=== PATIENT | female | born 1945 | race Caucasian/White ===

== ENCOUNTER → 2018-03-28 11:43 | Outpatient (CLI) | payer MEDICARE, OTHER, SELFPAY ==
[2018-03-28 13:38] LABS: Hep C Virus Ab w/Reflex Quant NEGATIVE s/c (NEGATIVE)
== END ==
PROVIDERS: PCP Internal Medicine; Visit Provider Internal Medicine
DX: Z13.818 Encounter for screening for other digestive system disorders (principal)
CPT/HCPCS: 36415; 86803

== ENCOUNTER → 2018-06-24 11:34 | Outpatient (CLI) | payer MEDICARE, OTHER, SELFPAY ==
[2018-06-24 12:48] LABS: Blood Urea Nitrogen 9 mg/dL (7-17); Calcium 9.2 mg/dL (8.4-10.2); Carbon Dioxide 31 mmol/L (22-32); Chloride 96 mmol/L (98-107); Estimated Glomerular Filt Rate > 60.0 mL/min (>60); Glucose 94 mg/dL (80-110); HEMOLYSIS < 15 (0-50); Potassium 4.9 mmol/L (3.4-5.1); Sodium 133 mmol/L (137-145)
== END ==
PROVIDERS: PCP Internal Medicine; Visit Provider Internal Medicine
DX: I10 Essential (primary) hypertension (principal)
CPT/HCPCS: 36415; 80048

== ENCOUNTER → 2018-10-05 09:57 | Outpatient (CLI) | payer MEDICARE, OTHER, SELFPAY ==
--- NOTE | 2018-10-05 | DI.MG.S_ITS ---
BILATERAL DIGITAL SCREENING MAMMOGRAM 3D/2D WITH CAD: 10/05/2018 CLINICAL: Routine screening. Family history of breast cancer. Comparison is made to exams dated: 08/04/2017 mammogram, 04/01/2016 mammogram, 03/27/2015 mammogram, 01/03/2010 mammogram, 03/23/2014 mammogram, and 02/22/2013 mammogram - [facility]. There are scattered fibroglandular elements in both breasts. Current study was also evaluated with a Computer Aided Detection (CAD) system. No significant masses, calcifications, or other findings are seen in either breast. There has been no significant interval change. IMPRESSION: NEGATIVE There is no mammographic evidence of malignancy. A 1 year screening mammogram is recommended. This exam was interpreted at Station ID: [id number]. NOTE: For mammograms, a report in lay terms will be sent to the patient. Approximately 15% of breast malignancies will not be visualized mammographically. In the management of a palpable breast mass, a negative mammogram must not discourage biopsy of a clinically suspicious lesion. Electronically Signed By: Drake moreno/rosalia:10/05/2018 14:12:06 letter sent: Normal Exam ACR BI-RADS Category 1: Negative 3341F
== END ==
PROVIDERS: PCP Internal Medicine; Visit Provider Internal Medicine
DX: Z12.31 Encounter for screening mammogram for malignant neoplasm of breast (principal); Z80.3 Family history of malignant neoplasm of breast
CPT/HCPCS: 77063; 77067

== ENCOUNTER → 2018-12-12 13:08 | Outpatient (CLI) | payer MEDICARE, OTHER, SELFPAY ==
--- NOTE | 2018-12-12 | DI.RAD.S_ITS ---
This blank DEXA report has been sent in error by the PACS system. The correct and complete report will be forthcoming in 1-2 days. Thank you for your patience and understanding. Dictated by: Isi Sanchez M.D. on 12/12/2018 at 16:35 Approved by: Isi Sanchez M.D. on 12/12/2018 at 16:35
== END ==
PROVIDERS: PCP Internal Medicine; Visit Provider Internal Medicine
DX: M85.852 Other specified disorders of bone density and structure, left thigh (principal); Z78.0 Asymptomatic menopausal state; Z90.722 Acquired absence of ovaries, bilateral; Z82.62 Family history of osteoporosis
CPT/HCPCS: 77080

== ENCOUNTER → 2019-04-12 09:38 | Outpatient (CLI) | payer MEDICARE, OTHER, SELFPAY ==
[2019-04-12 12:02] LABS: Cholesterol 213 mg/dL (140-199); Triglycerides 51 mg/dL (35-150)
[2019-04-12 12:04] LABS: HDL Cholesterol > 110 mg/dL (40-60); LDL Cholesterol Calculated 93 mg/dL (<100)
== END ==
PROVIDERS: PCP Internal Medicine; Visit Provider Internal Medicine Cardiovascular Disease
DX: I10 Essential (primary) hypertension (principal)
CPT/HCPCS: 36415; 80061

== ENCOUNTER → 2020-04-03 10:56 | Outpatient (CLI) | payer MEDICARE, OTHER, SELFPAY ==
[2020-04-03 13:15] LABS: BUN Creatinine Ratio 29.9 (6-22); Blood Urea Nitrogen 20 mg/dL (7-17); Calcium 9.6 mg/dL (8.4-10.2); Carbon Dioxide 24 mmol/L (22-32); Chloride 103 mmol/L (98-107); Cholesterol 245 mg/dL (140-199); Estimated Glomerular Filt Rate > 60.0 mL/min (>60); Glucose 108 mg/dL (80-110); HEMOLYSIS < 15 (0-50); Potassium 4.6 mmol/L (3.4-5.1); Sodium 134 mmol/L (137-145); Triglycerides 46 mg/dL (35-150)
[2020-04-03 13:30] LABS: HDL Cholesterol 132 mg/dL (40-60); LDL Cholesterol Calculated 104 mg/dL (<100)
== END ==
PROVIDERS: PCP Internal Medicine; Referring Provider Internal Medicine; Visit Provider Internal Medicine
DX: I10 Essential (primary) hypertension (principal); E78.2 Mixed hyperlipidemia
CPT/HCPCS: 36415; 80048; 80061

== ENCOUNTER → 2020-07-18 16:31 | Outpatient (CLI) | payer MEDICARE, OTHER, SELFPAY ==
--- NOTE | 2020-07-18 | DI.RAD.S_ITS ---
PROCEDURE: XR THORACIC SPINE 3V INDICATIONS: fall TECHNIQUE: Three views of the thoracic spine were acquired. COMPARISON: None. FINDINGS: Bones: No thoracic fractures or dislocations. There is a compression fracture of L2, chronicity uncertain. No suspicious bony lesions. 12 pairs of ribs are noted, and appear intact where visualized. Multilevel anterior disc height loss and endplate spurring in the mid and lower thoracic spine. Soft tissues: No paravertebral stripe thickening. IMPRESSION: 1. No visible thoracic vertebral body fractures. 2. Chronic appearing degenerative disc and endplate changes in the mid and lower thoracic spine. 3. Possible acute L2 compression fracture. Dictated by: Isi Sanchez M.D. on 07/18/2020 at 18:06 Approved by: Isi Sanchez M.D. on 07/18/2020 at 18:07
--- NOTE | 2020-07-18 | DI.RAD.S_ITS ---
8PROCEDURE: XR WRIST RT MIN 3V INDICATIONS: Fall TECHNIQUE: Four views of the wrist were acquired. COMPARISON: None. FINDINGS: Bones: No fractures or dislocations. No suspicious bony lesions. Severe degenerative changes, particularly at the 2nd and 3rd MCP joints. Scaphoid view: No scaphoid fracture. Soft tissues: No suspicious soft tissue calcifications. IMPRESSION: 1. No visible fracture. If there is continued concern for occult fracture, immobilization and reimaging in 7-10 days is recommended. 2. Degenerative changes at the 2nd and 3rd MCP joints particularly. Dictated by: Isi Sanchez M.D. on 07/18/2020 at 18:10 Approved by: Isi Sanchez M.D. on 07/18/2020 at 18:12
--- NOTE | 2020-07-18 | DI.RAD.S_ITS ---
PROCEDURE: XR RIBS LT MIN 3V W CXR1V INDICATIONS: Fall TECHNIQUE: Two views of the left ribs were acquired, along with a single view chest. COMPARISON: None. FINDINGS: Surgical changes and devices: None. Bones and chest wall: No fractures or dislocations. No suspicious bony lesions. Overlying soft tissues appear unremarkable. Lungs and pleura: No pleural effusions or pneumothorax. Lungs appear clear. Mediastinum: Mediastinal contours appear normal. Heart size is normal. IMPRESSION: 1. No displaced rib fractures. 2. No radiographic evidence of underlying chest trauma. Dictated by: Isi Sanchez M.D. on 07/18/2020 at 18:08 Approved by: Isi Sanchez M.D. on 07/18/2020 at 18:09
--- NOTE | 2020-07-18 | DI.RAD.S_ITS ---
PROCEDURE: XR LUMBAR SPINE 2-3V INDICATIONS: Fall TECHNIQUE: Three views of the lumbar spine were acquired. COMPARISON: None. FINDINGS: Bones: Five sdn-yar-thehvty vertebrae are present. There is an L2 compression fracture without retropulsion of fracture fragments. There is anterior endplate spur formation at this and other levels. Trace anterolisthesis L4 on five and moderate disc height loss L5-S1. No suspicious bony lesions. Soft tissues: Overlying bowel gas pattern is normal. No suspicious soft tissue calcifications. IMPRESSION: 1. Findings of possible acute L2 compression fracture. No prior studies are available for comparison. Correlate clinically and consider MRI to assess for acuity. 2. Moderate degenerative disc and endplate changes. Dictated by: Isi Sanchez M.D. on 07/18/2020 at 18:09 Approved by: Isi Sanchez M.D. on 07/18/2020 at 18:10
== END ==
PROVIDERS: PCP Internal Medicine; Referring Provider Student in an Organized Health Care Education/Training Program; Visit Provider Student in an Organized Health Care Education/Training Program
DX: S22.029A Unspecified fracture of second thoracic vertebra, initial encounter for closed fracture (principal); M79.601 Pain in right arm; R07.81 Pleurodynia; M54.9 Dorsalgia, unspecified; W19.XXXA Unspecified fall, initial encounter
CPT/HCPCS: 71101; 72072; 72100; 73110

== ENCOUNTER → 2020-08-16 11:05 | Outpatient (CLI) | payer MEDICARE, OTHER, SELFPAY ==
--- NOTE | 2020-08-16 | DI.CT.S_ITS ---
PROCEDURE: CT UE RT WO CON INDICATIONS: Pain in right wrist TECHNIQUE: Noncontrast 1 mm axial sections acquired through the carpal bones, with coronal and sagittal reformats. COMPARISON: [facility], CR, XR WRIST RT MIN 3V, 07/18/2020, 16:33. FINDINGS: Image quality: Excellent. Bones: There is a subtle slightly comminuted fracture involving radial aspect of distal radius extending to base of radial styloid and radiocarpal joint space. Minimal anterior and lateral displacement is seen with up to 3.2 mm diastasis at the fracture site. No other fracture or dislocation is seen. Osteoarthritic changes are noted throughout wrist joints. No suspicious intraosseous lesion. Soft tissues: There is mild soft tissue swelling over radial aspect of right wrist. Overlying thickened extensor pollicis brevis and abductor pollicis longus tendon at the level of radial styloid is lead noted suggestive of tendinosis/low-grade partial-thickness tear. No gross full-thickness wrist tendon rupture. No abnormal soft tissue calcification is seen. IMPRESSION: 1. Subacute appearing comminuted and minimally displaced distal radial intra-articular fracture extending to base of radial styloid as described above. No other fracture or dislocation. Wrist joint osteoarthritis. 2. Soft tissue swelling around right distal radial fracture site with suggestion of tendinosis/low-grade partial-thickness tear involving adjacent extensor pollicis brevis and abductor pollicis longus tendons. Dictated by: Ruepsh Pérez M.D. on 08/16/2020 at 13:20 Approved by: Rupesh Pérez M.D. on 08/16/2020 at 13:28
== END ==
PROVIDERS: PCP Internal Medicine; Referring Provider Internal Medicine; Visit Provider Internal Medicine
DX: M25.531 Pain in right wrist (principal); S52.571A Other intraarticular fracture of lower end of right radius, initial encounter for closed fracture
CPT/HCPCS: 73200

== ENCOUNTER → 2020-11-14 11:18 | Outpatient (CLI) | payer MEDICARE, OTHER, SELFPAY ==
--- NOTE | 2020-11-14 | DI.MG.S_ITS ---
BILATERAL DIGITAL SCREENING MAMMOGRAM 3D/2D WITH CAD: 11/14/2020 CLINICAL: Routine screening. Family history of breast cancer. Comparison is made to exams dated: 10/05/2018 mammogram, 08/04/2017 mammogram, and 04/01/2016 mammogram - . There are scattered fibroglandular elements in both breasts. Current study was also evaluated with a Computer Aided Detection (CAD) system. No significant masses, calcifications, or other findings are seen in either breast. There has been no significant interval change. IMPRESSION: NEGATIVE There is no mammographic evidence of malignancy. A 1 year screening mammogram is recommended. This exam was interpreted at Station ID: [id number]. NOTE: For mammograms, a report in lay terms will be sent to the patient. Approximately 15% of breast malignancies will not be visualized mammographically. In the management of a palpable breast mass, a negative mammogram must not discourage biopsy of a clinically suspicious lesion. Electronically Signed By: Mickey long/rosalia:11/14/2020 11:36:52 letter sent: Normal Exam ACR BI-RADS Category 1: Negative 3341F
== END ==
PROVIDERS: PCP Internal Medicine; Referring Provider Internal Medicine; Visit Provider Internal Medicine
DX: Z12.31 Encounter for screening mammogram for malignant neoplasm of breast (principal)
CPT/HCPCS: 77063; 77067

== ENCOUNTER → 2021-02-06 11:09 | Outpatient (CLI) | payer MEDICARE, OTHER, SELFPAY ==
[2021-02-06 12:11] LABS: Add Manual Diff / Slide Review NO; Basophils Absolute Auto 100 /uL (0-100); Basophils Percent Auto 1.1 % (0-2); Eosinophils Absolute Auto 100 /uL (0-450); Hematocrit 39.7 % (36-46); Hemoglobin 13.1 g/dL (12.0-16.0); Lymphocytes Absolute Auto 2200 /uL (1100-4500); Lymphocytes Percent Auto 34.5 % (25-40); Mean Corpuscular HGB Conc 32.9 % (30-36); Mean Corpuscular Hemoglobin 30.6 PG (26-34); Mean Corpuscular Volume 92.8 fL (80-100); Monocytes Absolute Auto 600 /uL (0-900); Monocytes Percent Auto 9.9 % (3-14); Neutrophils Absolute Auto 3400 /uL (1500-7000); Neutrophils Percent Auto 52.5 % (50-75); Platelet Count 322 X10^3/uL (150-400); Red Blood Cell Count 4.28 X10^6/uL (4.0-5.2); Red Cell Distribution Width 13.5 % (11.6-14.8); White Blood Cell Count 6.4 X10^3/uL (4.5-11.0)
[2021-02-06 12:30] LABS: Alanine Aminotransferase 27 IU/L (<35); Albumin 4.3 g/dL (3.5-5.0); Albumin Globulin Ratio 1.6 (1.0-2.8); Alkaline Phosphatase 68 U/L (38-126); Aspartate Aminotransferase 37 IU/L (14-36); BUN Creatinine Ratio 17.7 (6-22); Bilirubin Total 0.5 mg/dL (0.2-1.3); Blood Urea Nitrogen 11 mg/dL (7-17); Calcium 9.6 mg/dL (8.4-10.2); Carbon Dioxide 27 mmol/L (22-32); Chloride 102 mmol/L (98-107); Cholesterol 240 mg/dL (140-199); Estimated Glomerular Filt Rate > 60.0 mL/min (>60); Globulin 2.7 g/dL (1.7-4.1); Glucose 99 mg/dL (80-110); HEMOLYSIS < 15 (0-50); Potassium 4.2 mmol/L (3.4-5.1); Sodium 135 mmol/L (137-145); Triglycerides 45 mg/dL (35-150)
[2021-02-06 12:41] LABS: HDL Cholesterol 134 mg/dL (40-60); LDL Cholesterol Calculated 97 mg/dL (<100)
[2021-02-06 13:15] LABS: Vitamin B12 > 1000 pg/mL (239-931)
[2021-02-06 13:36] LABS: TSH w/ Reflex to FT4 1.28 uIU/mL (0.47-4.68)
== END ==
PROVIDERS: PCP Internal Medicine; Referring Provider Internal Medicine; Visit Provider Internal Medicine
DX: R53.83 Other fatigue (principal); I10 Essential (primary) hypertension; E78.2 Mixed hyperlipidemia
CPT/HCPCS: 36415; 80053; 80061; 82607; 84443; 85025

== ENCOUNTER → 2021-04-21 07:58 | Outpatient (CLI) | payer MEDICARE, OTHER, SELFPAY ==
[2021-04-21 10:06] LABS: COVID19 -Nasal RAPID Negative (Negative)
== END ==
PROVIDERS: PCP Internal Medicine; Referring Provider Physician Assistant; Visit Provider Physician Assistant
DX: Z01.812 Encounter for preprocedural laboratory examination (principal); Z20.822 Contact with and (suspected) exposure to COVID-19
CPT/HCPCS: 87635; C9803

== ENCOUNTER 2021-04-22 10:08 | Day surgery (SDC) | payer MEDICARE, OTHER, SELFPAY ==
[2021-04-22] MEDS: PROPARACAINE 0.5% OPHTH SOL 2 DROPS EYE-OP (10:34)
[2021-04-22 10:35] VITALS: BP 146/74; PULSE 71; RESP 16; TEMP 36.2; O2SAT 94; BMI 25.7
[2021-04-22] MEDS: CATARACT EYE COMPOUND (10 DROPS/SYRINGE) 3 DROPS EYE-OP ×3 (10:35→10:46)
--- NOTE | 2021-04-22 11:32 | P.OP_ITS ---
Operative Date/Time/Diagnoses Pre-op diagnosis: Nuclear cataract right eye Procedure & Clinicians Procedure: Cataract Surgery Same procedure as scheduled: Yes Surgeon: Donell Bennett Anesthesia Type: MAC +/- and Sedation Operative Notes Procedure in detail: Patient brought to the operating suite. Tetracaine drops placed in the right eye. Marking instrument was used to gricel vertical and horizontal meridians. Patient was prepped and draped in sterile manner. Wire lid speculum was placed in the eye. Marking instrument was used to gricel 25 degree meridian. Betadine drops were placed on the eye. This was irrigated. Lidocaine jelly was placed on the eye. A paracentesis port was created with a side-port blade. 0.1 mL 1% preservative free lidocaine was injected into the anterior chamber. The anterior chamber was deepened with viscoelastic. 2.6 mm keratome was used to create a temporal clear corneal incision. Cystotome and Utrata forceps were used to create continuous tear capsulorrhexis. Balanced salt solution was used to hydro dissect the nucleus. The phacoemulsification handpiece was inserted and the nucleus was removed using the stop and chop technique. The irrigation aspiration handpiece was inserted and the remaining cortex was removed. Anterior chamber was deepened with viscoelastic. An Velazquez DIB00 intraocular lens with a power of 19.5 was injected into the capsular bag. Irrigation aspiration handpiece was inserted and the remaining viscoelastic was removed. The lens was rotated to the 25 degree meridian. Incision was hydrated with balanced salt solution and found to be leak free with pressure with Weck- Adriana sponges. 0.1 mL Vigamox injected anterior chamber. 0.3 mL Kenalog 10 mg was injected subconjunctivally. Lid speculum was removed. The patient left the operating room in excellent condition. Complications: none Post-operative Condition: stable Disposition: same day surgery
--- NOTE | 2021-04-22 11:32 | PM.PREOP ---
Pre-operative Note Interval Note History & Physical reviewed/Exam performed by Physician: Yes Changes to H&P: No
[2021-04-22] MEDS: MOXIFLOXACIN INJ 4 MG/0.8 ML VIAL 0.5 MG EYE-OP (11:51)
[2021-04-22] MEDS: LIDOCAINE 2% (GLYDO) 6 ML GEL TOP (11:51)
[2021-04-22] MEDS: PHENYLEPHRINE/LIDOCAINE VIAL (OR) 0.2 ML EYE-OP (11:51)
[2021-04-22] MEDS: CHONDROIDTIN/SOD HYALURONATE 1.05 ML SYRINGE INTRAOCULA (11:51)
[2021-04-22] MEDS: BALANCED SALT IRRIG SOLN NO.2 500 ML, EPINEPHrine 1 MG IRR (11:52)
[2021-04-22] MEDS: TETRACAINE 0.5% OPHTH DROPS 4 ML 2 DROPS EYE-OP (11:52)
[2021-04-22] MEDS: TRIAMCINOLONE 50 MG/5 ML VIAL INJ (11:52)
[2021-04-22 12:08] VITALS: BP 139/75; PULSE 68; RESP 16; O2SAT 100
== END 2021-04-22 12:34 | disposition home or self-care (01) ==
PROVIDERS: PCP Internal Medicine; Referring Provider Ophthalmology; Visit Provider Ophthalmology
PROC: (CPT 66984; principal; 2021-04-22 12:15)
DX: H25.11 Age-related nuclear cataract, right eye (principal); I10 Essential (primary) hypertension
CPT/HCPCS: 66984; J0171; J2250; J3301; V2787

== ENCOUNTER → 2021-05-03 09:01 | Outpatient (CLI) | payer MEDICARE, OTHER, SELFPAY ==
[2021-05-03 11:04] LABS: COVID19 -Nasal RAPID Negative (Negative)
== END ==
PROVIDERS: PCP Internal Medicine; Referring Provider Physician Assistant; Visit Provider Physician Assistant
DX: Z01.812 Encounter for preprocedural laboratory examination (principal); Z20.822 Contact with and (suspected) exposure to COVID-19
CPT/HCPCS: 87635; C9803

== ENCOUNTER 2021-05-06 07:40 | Day surgery (SDC) | payer MEDICARE, OTHER, SELFPAY ==
[2021-05-06] MEDS: PROPARACAINE 0.5% OPHTH SOL 2 DROPS EYE-OP (08:37)
[2021-05-06 08:45] VITALS: BP 149/78; PULSE 68; RESP 18; TEMP 36.6; O2SAT 100; BMI 24.9
[2021-05-06] MEDS: CATARACT EYE COMPOUND (10 DROPS/SYRINGE) 3 DROPS EYE-OP (08:45)
--- NOTE | 2021-05-06 09:28 | PM.PREOP ---
Pre-operative Note Interval Note History & Physical reviewed/Exam performed by Physician: Yes Changes to H&P: No
--- NOTE | 2021-05-06 09:28 | PM.OP.1 ---
Operative Date/Time/Diagnoses Pre-op diagnosis: Nuclear Cataract Left eye Post-op diagnosis: same Procedure & Clinicians Same procedure as scheduled: Yes Surgeon: Donell Bennett Anesthesia Type: MAC +/- and Sedation Operative Notes Procedure in detail: Patient brought to the operating suite. Tetracaine drops placed in the left eye. Patient was prepped and draped in sterile manner. Wire lid speculum was placed in the eye. Betadine drops were placed on the eye. This was irrigated. Lidocaine jelly was placed on the eye. A paracentesis port was created with a side-port blade. 0.1 mL 1% preservative free lidocaine was injected into the anterior chamber. The anterior chamber was deepened with viscoelastic. 2.6 mm keratome was used to create a temporal clear corneal incision. Cystotome and Utrata forceps were used to create continuous tear capsulorrhexis. Balanced salt solution was used to hydro dissect the nucleus. The phacoemulsification handpiece was inserted and the nucleus was removed using the stop and chop technique. The irrigation aspiration handpiece was inserted and the remaining cortex was removed. Anterior chamber was deepened with viscoelastic. An Velazquez DIB00 intraocular lens with a power of 18.5 was injected into the capsular bag. Irrigation aspiration handpiece was inserted and the remaining viscoelastic was removed. Incision was hydrated with balanced salt solution and found to be leak free with pressure with Weck-Adriana sponges. 0.1 mL Vigamox injected anterior chamber. 0.3 mL Kenalog 10 mg was injected subconjunctivally. Lid speculum was removed. The patient left the operating room in excellent condition. Complications: none Post-operative Condition: stable Disposition: same day surgery
[2021-05-06] MEDS: PHENYLEPHRINE/LIDOCAINE VIAL (OR) 0.2 ML EYE-OP (09:44)
[2021-05-06] MEDS: CHONDROIDTIN/SOD HYALURONATE 1.05 ML SYRINGE INTRAOCULA (09:44)
[2021-05-06] MEDS: LIDOCAINE 2% (GLYDO) 6 ML GEL TOP (09:44)
[2021-05-06] MEDS: MOXIFLOXACIN INJ 4 MG/0.8 ML VIAL 0.5 MG EYE-OP (09:44)
[2021-05-06] MEDS: BALANCED SALT IRRIG SOLN NO.2 500 ML, EPINEPHrine 1 MG IRR (09:45)
[2021-05-06] MEDS: TRIAMCINOLONE 50 MG/5 ML VIAL INJ (09:45)
[2021-05-06] MEDS: TETRACAINE 0.5% OPHTH DROPS 4 ML 2 DROPS EYE-OP (09:45)
[2021-05-06 10:09] VITALS: BP 166/69; PULSE 65; RESP 22; TEMP 36.4; O2SAT 98
--- NOTE | 2021-05-06 10:11 | SUR.PHASEII ---
Discharged patient home with spouse in stable condition.
== END 2021-05-06 10:10 | disposition home or self-care (01) ==
PROVIDERS: PCP Internal Medicine; Referring Provider Ophthalmology; Visit Provider Ophthalmology
PROC: (CPT 66984; principal; 2021-05-06 09:45)
DX: H25.12 Age-related nuclear cataract, left eye (principal); I10 Essential (primary) hypertension
CPT/HCPCS: 66984; J0171; J2250; J3301

== ENCOUNTER 2021-09-17 16:32 | Emergency (ER) | payer MEDICARE, OTHER, SELFPAY ==
[2021-09-17 17:12] VITALS: BP 168/79; PULSE 79; RESP 16; TEMP 36.6; O2SAT 100; BMI 26.3
--- NOTE | 2021-09-17 17:36 | PC.NURSE ---
Pt pink/warm/dry. No acute distress. Denies fever, chills, nausea/vomiting. PT w/ known UTI, Pt found that she was not on right abx and called PCP who could not see her and sent her to ED. Pt feels well.
--- NOTE | 2021-09-17 17:59 | ED_ITS ---
HPI - General Adult General Chief complaint: Urogenital-Female Stated complaint: here for abx for a UTI Time Seen by Provider: 09/17/21 17:33 Source: patient Mode of arrival: Ambulatory Limitations: no limitations History of Present Illness HPI narrative: Patient is a 76-year-old female who was currently being treated with Bactrim for a urinary tract infection. This was ordered by her primary doctor. She has be en on it for the past several days but states she is not getting better. She contacted her primary doctor. Review of the culture shows that her E coli infection was resistant to Bactrim. Patient does report some lower back discomfort and some nausea but no vomiting. Is generally does not feel very well. She was told to come to the emergency department for concern of potential sepsis. Related Data Home Medications Medication Instructions Recorded Confirmed ASPIRIN (Aspir-Low) 81 mg PO Q DAY #0 09/11/11 05/06/21 [VITAMIN D] 1 tab PO QDAY #0 09/11/11 05/06/21 zolpidem 5 mg tablet 2.5 mg PO HSP #0 09/11/11 05/06/21 losartan 50 mg PO BID 04/22/21 05/06/21 amlodipine 5 mg tablet 5 mg PO DAILY 05/06/21 05/06/21 Previous Rx's Medication Instructions Recorded ciprofloxacin HCl 500 mg tablet 500 mg PO BID 7 Days #14 tab 09/17/21 phenazopyridine 100 mg tablet 100 mg PO TID PRN #6 tab 09/17/21 (Pyridium) Allergies Allergy/AdvReac Type Severity Reaction Status Date / Time bacitracin Allergy Mild RASH Verified 04/22/21 10:29 latex Allergy Mild DELAYS Verified 05/06/21 08:32 HEALING neomycin Allergy Mild RASH Verified 05/06/21 08:32 polymyxin B Allergy Mild RASH Verified 05/06/21 08:32 codeine AdvReac Mild NAUSEA Verified 05/06/21 08:32 tetracycline AdvReac Mild NAUSEA Verified 05/06/21 08:32 epinephrine AdvReac Unknown TACHYCARDIA Verified 04/19/21 09:13 lidocaine AdvReac Unknown TACHYCARDIA Verified 04/19/21 09:13 Review of Systems Constitutional Constitutional: Reports fatigue, Denies fever(s) and Reports lethargy Cardiovascular Cardiovascular: Reports system reviewed and no additional complaints, except as documented Respiratory Respiratory: Reports system reviewed and no additional complaints, except as documented Gastrointestinal Gastrointestinal: Reports as per HPI and Reports system reviewed and no additional complaints, except as documented Genitourinary Genitourinary: Reports system reviewed and no additional complaints, except as documented, Reports difficulty voiding and Reports dysuria Musculoskeletal Musculoskeletal: Reports system reviewed and no additional complaints, except as documented Integumentary/Breasts Skin/Breast: Reports system reviewed and no additional complaints, except as documented Endocrine Endocrine: Reports fatigue Hematologic/Lymphatic On Anticoagulants: No Patient History Medical History Hypertension Surgical History (Updated 02/22/18 @ 05:33 by Conversion Provider) History of tonsillectomy Status post hysterectomy with oophorectomy Social History household members: spouse Smoking Status: Former smoker alcohol intake: current Smoking Status: Former smoker alcohol intake frequency: a few times a month Substance Use Type: does not use Exam Initial Vital Signs Initial Vital Signs: Vital Signs Temperature 97.9 F 09/17/21 17:12 Pulse Rate 79 09/17/21 17:12 Respiratory Rate 16 09/17/21 17:12 Blood Pressure 168/79 H 09/17/21 17:12 Pulse Oximetry 100 09/17/21 17:12 Const General: cooperative, healthy appearing, comfortable, well developed and well groomed Limitations: mental status not altered [facility] Head: normal to inspection and normocephalic Resp Effort & Inspection: normal respiratory effort Cardio Rate: regular rate GI Inspection: non-distended Back/Spine/Pelvis Back: No CVA tenderness Neuro General: patient alert, patient awake, patient oriented x3 and moves all extremities Extrem General: capillary refill normal Psych Appearance: grossly normal and well kempt Course Vital Signs Vital signs: Vital Signs - 8 hr 09/17/21 17:12 Temperature 97.9 F Pulse Rate 79 Respiratory Rate 16 Blood Pressure 168/79 H Pulse Oximetry 100 Medical Decision Making [facility] Narrative Medical decision making narrative: Patient is nontoxic, afebrile, not hypotensive low suspicion for sepsis. No indication for IV antibiotics. She does have some lower back discomfort but no CVA tenderness. Was able to review the patient's prior culture. It was an E coli although it was less than 100,000 colony-forming units. Will have her stop the Bactrim. Will put her on Cipro. The culture did show a susceptibility to Cipro. Will also send home with peridium. Patient was given return precautions and follow-up instructions. She expressed understanding and agreement. Discharge Plan Departure Patient Disposition: Home Clinical Impression: Urinary tract infection Instructions: DI for Urinary Tract Infection (UTI) Activity Restrictions/Additional Instructions: I recommend that she stop the Bactrim. A prescription for a new antibiotic was electronically transmitted to [email or web address]. Please start taking as directed. Contact your primary doctor for follow-up. Return to the emergency department for any new or worsening symptoms. Prescriptions: New ciprofloxacin HCl 500 mg tablet 500 mg PO BID 7 Days Qty: 14 0RF phenazopyridine [Pyridium] 100 mg tablet 100 mg PO TID PRN (Reason: pain) Qty: 6 0RF No Action zolpidem 5 MG tablet 2.5 mg PO HSP Qty: 0 0RF ASPIRIN (Aspir-Low) 81 mg PO Q DAY Qty: 0 0RF [VITAMIN D] 1 tab PO QDAY Qty: 0 0RF losartan 50 mg PO BID 0RF amlodipine 5 mg tablet 5 mg PO DAILY 0RF Referrals: Maryse Ulloa MD [Primary Care Provider] -
== END 2021-09-17 18:08 | disposition home or self-care (01) ==
PROVIDERS: Emergency Provider Emergency Medicine; PCP Internal Medicine
DX: N39.0 Urinary tract infection, site not specified (principal)
CPT/HCPCS: 99281

== ENCOUNTER → 2021-10-07 09:30 | Outpatient (CLI) | payer MEDICARE, OTHER, SELFPAY ==
[2021-10-07 11:09] LABS: Appearance Urine UA CLEAR; Bilirubin Urine UA NEGATIVE (NEGATIVE); Color Urine UA YELLOW; Glucose Urine UA NEGATIVE (Negative); Ketones Urine UA NEGATIVE (NEGATIVE); Leukocyte Esterase Urine UA TRACE (NEGATIVE); Nitrite Urine UA NEGATIVE (Negative); Occult Blood Urine UA 1+ (Negative); Protein Urine UA NEGATIVE (Negative); Urobilinogen Urine UA 0.2 E.U./dL (0.2)
[2021-10-07 11:27] LABS: Bacteria Urine None Seen; Culture Indicated Urine Specimen Cultured; RBC Urine 0-1/HPF (0-5/HPF); Squamous Epithelial Cell Urine None Seen (0-5/HPF)
[2021-10-07 11:28] LABS: WBC Urine 0-1/HPF (0-5/HPF)
== END ==
PROVIDERS: Family Provider Internal Medicine; PCP Internal Medicine; Referring Provider Internal Medicine; Visit Provider Internal Medicine
DX: N39.0 Urinary tract infection, site not specified (principal)
CPT/HCPCS: 81001; 87086

== ENCOUNTER → 2021-12-03 10:57 | Outpatient (CLI) | payer MEDICARE, OTHER, SELFPAY ==
--- NOTE | 2021-12-03 | DI.MG.S_ITS ---
BILATERAL DIGITAL SCREENING MAMMOGRAM 3D/2D WITH CAD: 12/03/2021 CLINICAL: Routine screening. Family history of breast cancer. Comparison is made to exams dated: 11/14/2020 mammogram, 10/05/2018 mammogram, and 08/04/2017 mammogram - [facility]. There are scattered fibroglandular elements in both breasts. Current study was also evaluated with a Computer Aided Detection (CAD) system. No significant masses, calcifications, or other findings are seen in either breast. There has been no significant interval change. IMPRESSION: NEGATIVE There is no mammographic evidence of malignancy. A 1 year screening mammogram is recommended. This exam was interpreted at Station ID: [id number]. NOTE: For mammograms, a report in lay terms will be sent to the patient. Approximately 15% of breast malignancies will not be visualized mammographically. In the management of a palpable breast mass, a negative mammogram must not discourage biopsy of a clinically suspicious lesion. Electronically Signed By: Mickey long/rosalia:12/03/2021 11:42:35 letter sent: Normal Exam ACR BI-RADS Category 1: Negative [id number]
== END ==
PROVIDERS: Family Provider Internal Medicine; PCP Internal Medicine; Referring Provider Internal Medicine; Visit Provider Internal Medicine
DX: Z12.31 Encounter for screening mammogram for malignant neoplasm of breast (principal); Z80.3 Family history of malignant neoplasm of breast
CPT/HCPCS: 77063; 77067

== ENCOUNTER 2022-02-05 11:15 | Outpatient (RCR) | payer MEDICARE, OTHER, SELFPAY ==
--- NOTE | 2021-10-23 11:10 | PT.OIE ---
Current Diagnoses Unilateral primary osteoarthritis, right knee (10/23/21) Past Medical History (Last Reviewed 09/17/21 @ 18:50 by Jaime Elizabeth DO) Hypertension Past Surgical History History of tonsillectomy Status post hysterectomy with oophorectomy Visit Care Team Role Provider Type Maryse Ulloa MD Family Provider Physician Primary Care Provider Specialty: Internal Medicine Address: [address] [place] [address], [address] Email: [email or web address] Ria Jeronimo PA-C Attending Provider Non-Staff Referring Provider Specialty: General Surgery Address: [address] [place] [address], [place], [address] Email: Physical Therapy Initial Evaluation PT-OP-A Visit Information Start: 10/23/21 08:57 Freq: Status: Active Protocol: Document 10/23/21 09:50 SAK (Rec: 10/23/21 11:09 [facility] [id number]) Out-Patient Physical Therapy Visit Information Visit Information Visit Type Initial Evaluation Visit Start Time 09:50 Visit Stop Time 10:45 Total Visit Minutes 55 Visit Number 1 PT-OP-B Current Condition Start: 10/23/21 08:57 Freq: Status: Active Protocol: Document 10/23/21 09:50 SAK (Rec: 10/23/21 11:09 SAK [id number]) Current Condition History of Current Condition Onset Date 10/13/21 Current Complaints right knee pain and gait dysfunction History of Current Condition 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 Referred to PT for rehab s/p right TKA. Has walker, cane, and walking sticks, cane, but comes to PT with no device, limping moderately. Follow- up with PA next week. Minimal exercises since going home. Wearing FÁTIMA hose. has mild dementia so patient does more around the home. Prior to severe pain used to walk 2 miles per day, prior to Covid was member of hiking group. Treatment Goals Patient/Caregiver Goals Be able to walk on all surfaces without pain. Has 14 stairs at home railing on one side. 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 Primary Therapy/Recovery caregiver for with dementia PT-OP-C Subjective Start: 10/23/21 08:57 Freq: Status: Active Protocol: Document 10/23/21 09:50 SAK (Rec: 10/23/21 11:09 [facility] [id number]) Patient Questionnaires Lower Extremity Functional Scale LEFS Score 25 OP-PT Pain Assessment Location right knee Intensity 7 Scale Used Numeric (0 - 10) Description Aching,Pressure,Spasm, Tightness Frequency Frequent Pain Aggravating Factors ADL's,Activity,Exercise, Walking,Stair Climbing Pain Alleviating Factors Cold,Inactivity,Rest Patient Stated Pain Goal min to no pain Home Pain Medication Use Pain Medications Used Yes: Percocet Pain Behaviors Pain Behaviors Facial Grimacing,Guarding, Wincing PT-OP-F Manual Assessment Start: 10/23/21 08:57 Freq: Status: Active Protocol: Document 10/23/21 09:50 SAK (Rec: 10/23/21 11:09 [facility] [id number]) Manual Assessments Soft Tissue Assessment Soft Tissue Mobility Assessment extensive brusing right knee and lower leg to ankle. PT-OP-G Mobility & Gait Start: 10/23/21 08:57 Freq: Status: Active Protocol: Document 10/23/21 09:50 SAK (Rec: 10/23/21 11:09 [facility] [id number]) OP Mobility Evaluation Bed Mobility Rolling indep Supine to and from Sit indep Transfers Sit to Stand indep, min use of right LE PT-OP-J Posture/Palpation/Skin Start: 10/23/21 08:57 Freq: Status: Active Protocol: Document 10/23/21 09:50 SAK (Rec: 10/23/21 11:09 [facility] [id number]) Palpation Assessment Location right knee Palpation Findings Edema,Muscle Guarding, Tenderness Palpation Details mild warmth right knee compared to left PT-OP-K Range of Motion Start: 10/23/21 08:57 Freq: Status: Active Protocol: Document 10/23/21 09:50 SAK (Rec: 10/23/21 11:09 [facility] [id number]) Knee Goniometric Range of Motion Knee Right Knee ROM WFL No Flexion Active (degrees) 84 Flexion Passive (degrees) 89 Extension Active (degrees) 24 Extension Passive (degrees) 8 Left Knee ROM WFL Yes Flexion Active (degrees) 120 Extension Active (degrees) 0 PT-OP-M Strength Start: 10/23/21 08:57 Freq: Status: Active Protocol: Document 10/23/21 09:50 [facility] (Rec: 10/23/21 11:09 [facility] [id number]) Knee Strength Knee Manual Muscle Testing Right Flexion (S2) 3- Fair- Extension (L3) 3- Fair- Comments no MMT due to surgery 10/13/21 . Less than antigravity evident Left Flexion (S2) 5 Normal Extension (L3) 5 Normal Ankle/Foot Strength Ankle and Foot Manual Muscle Testing kvng Dorsiflexion (L4) 5 Normal Plantarflexion (S1) 5 Normal PT-OP-Q Treatments Start: 10/23/21 08:57 Freq: Status: Active Protocol: Document 10/23/21 09:50 [facility] (Rec: 10/23/21 11:09 [facility] [id number]) Therapeutic Exercises Supine Exercises SAQ Side bilateral Reps/Minutes 10x SLR Side right Reps/Minutes 10x heel slide Side right Comments without and with 55 cm therapy ball (patient has at home) quad sets Side bilateral Reps/Minutes 10x Comments towel roll under ankle for second 5 ankle pumps Side bilateral Reps/Minutes 10x Sitting Exercises LAQ Side right Reps/Minutes 3x heelslide Side right Reps/Minutes 5x Gait Training Gait Activity 1 Description use of device Comments verbal instruction to resume use of walker or cane Self-Care/Home Management Treatment Education Patient Education Home Exercise Program,Pain Management Other Education use cane or walker instructed in barriers to rehab including pain, swelling , and scar tissue formation. Importance of early joint movement, adequat elevatation and frequent icing, consider increased compression level compression stockings; shown donning aids for increasing ease of donning as patient requires assistance from to don FÁTIMA hose. PT-OP-R Modalities Start: 10/23/21 08:57 Freq: Status: Active Protocol: Document 10/23/21 09:50 [facility] (Rec: 10/23/21 11:09 [facility] [id number]) Hot Pack/Cold Pack Treatment Cold Pack Location right knee Patient Position Hooklying Treatment Duration (minutes) 12 Comments during patient education PT-OP-T Assessment and Plan Start: 10/23/21 08:57 Freq: Status: Active Protocol: Document 10/23/21 09:50 [facility] (Rec: 10/23/21 11:09 [facility] [id number]) Physical Therapy Assessment Rehab Potential Rehabilitation Potential Excellent Evaluation Complexity Number of Personal Factors/Comorbidities 1-2 Number of Body Systems Impaired 3 Clinical Presentation at Evaluation Evolving Impairments Impairments Functional Mobility,Gait,Pain, ROM,Strength Goals Three Impairment Lower extremity functional score 25% Short Term Goal (STG) Improve LEFS to at least 50% as measure of improved knee function STG Duration 11/23/21 Quarter Backer Goal (LTG) Improve LEFS to at least 75% as measure of improved right knee function LTG Duration 12/22/21 Two Impairment antalgic gait, step-to on stairs Short Term Goal (STG) Patient able to ambulate without limp on level surfaces with least restrictive device and ascend and descend stairs safely STG Duration 11/23/21 Prison Goal (LTG) Patient will be able to ambulate without limp without assistive device for at least short distance community ambulation and be able to ambulate on stairs with alternating pattern without difficulty LTG Duration 12/22/21 One Impairment R knee ROM restrictions 24-84 actively, lacking antigravity knee strength Short Term Goal (STG) Patient to be independent with HEP to address ROM and strength limitations STG Duration 11/23/21 Quarter Backer Goal (LTG) Patient to demonstrate right knee ROM 0-120 and right knee strength of at least 4/5 LTG Duration 12/22/21 Assessment Summary Assessment Patient presents to PT s/p right TKA with extensive brusing but typical increase in warmth and no signs or symptoms of infection. She is wearing FÁTIMA hose but may need to consider thigh high compression stockings with increased compression level for edema control. She is ambulating with antalgic pattern without assistive device and was instructed to resume use of assistive device so she can ambulate without limp and we will work in PT to gradually wean her off of assistive devices. Her ROM right knee is AROM 24-84, PROM 8-89. HEP was reviewed and importance of performing 3x/ day emphasized along with timing use of pain medication. She demonstrated good understanding of all the above and by end of session ROM passively was 5-93. Will benefit from continued skilled PT to help her fully recover from her TKA and resume more active lifestyle. Physical Therapy Plan Frequency and Duration Frequency of Treatment 2x/Week Duration of Treatment 8 weeks Plan of Care Start Date 10/23/21 Plan of Care End Date 12/22/21 Therapeutic Interventions Therapeutic Interventions Aquatic Therapy Modalities Cold Pack/Ice Massage,Electric Stimulation,Hot Packs Next Visit Focus/Plan Next Note Type Treatment Note Next Visit Plan Initiate exercise bike, continue TKA rehab with therapeutic exercises for ROM and strengthening, and gait training. End with ice, and possible IFES depending on pain control.
--- NOTE | 2021-10-23 11:10 | PT.OPPOC ---
Physical, Occupational & Speech Therapy At [facility] Current Diagnoses Unilateral primary osteoarthritis, right knee (10/23/21) Visit Care Team Role Provider Type Maryse Ulloa MD Family Provider Physician Primary Care Provider Specialty: Internal Medicine Address: [address] [place] [address], [id number] Email: [email or web address] Ria Jeronimo PA-C Attending Provider Non-Staff Referring Provider Specialty: General Surgery Address: [address] [place] [address], [id number] Email: Plan Of Care PT-OP-T Assessment and Plan Start: 10/23/21 08:57 Freq: Status: Active Protocol: Document 10/23/21 09:50 SAK (Rec: 10/23/21 11:09 [facility]AK [id number]) Physical Therapy Assessment Rehab Potential Rehabilitation Potential Excellent Evaluation Complexity Number of Personal Factors/Comorbidities 1-2 Number of Body Systems Impaired 3 Clinical Presentation at Evaluation Evolving Impairments Impairments Functional Mobility,Gait,Pain, ROM,Strength Goals Three Impairment Lower extremity functional score 25% Short Term Goal (STG) Improve LEFS to at least 50% as measure of improved knee function STG Duration 11/23/21 Intermediate Goal (LTG) Improve LEFS to at least 75% as measure of improved right knee function LTG Duration 12/22/21 Two Impairment antalgic gait, step-to on stairs Short Term Goal (STG) Patient able to ambulate without limp on level surfaces with least restrictive device and ascend and descend stairs safely STG Duration 11/23/21 Intermediate Goal (LTG) Patient will be able to ambulate without limp without assistive device for at least short distance community ambulation and be able to ambulate on stairs with alternating pattern without difficulty LTG Duration 12/22/21 One Impairment R knee ROM restrictions 24-84 actively, lacking antigravity knee strength Short Term Goal (STG) Patient to be independent with HEP to address ROM and strength limitations STG Duration 11/23/21 Personal Companion Goal (LTG) Patient to demonstrate right knee ROM 0-120 and right knee strength of at least 4/5 LTG Duration 12/22/21 Assessment Summary Assessment Patient presents to PT s/p right TKA with extensive brusing but typical increase in warmth and no signs or symptoms of infection. She is wearing FÁTIMA hose but may need to consider thigh high compression stockings with increased compression level for edema control. She is ambulating with antalgic pattern without assistive device and was instructed to resume use of assistive device so she can ambulate without limp and we will work in PT to gradually wean her off of assistive devices. Her ROM right knee is AROM 24-84, PROM 8-89. HEP was reviewed and importance of performing 3x/ day emphasized along with timing use of pain medication. She demonstrated good understanding of all the above and by end of session ROM passively was 5-93. Will benefit from continued skilled PT to help her fully recover from her TKA and resume more active lifestyle. Physical Therapy Plan Frequency and Duration Frequency of Treatment 2x/Week Duration of Treatment 8 weeks Plan of Care Start Date 10/23/21 Plan of Care End Date 12/22/21 Therapeutic Interventions Therapeutic Interventions Aquatic Therapy Modalities Cold Pack/Ice Massage,Electric Stimulation,Hot Packs Next Visit Focus/Plan Next Note Type Treatment Note Next Visit Plan Initiate exercise bike, continue TKA rehab with therapeutic exercises for ROM and strengthening, and gait training. End with ice, and possible IFES depending on pain control. Plan of Care Dates Plan of Care Start Date 10/23/21 Plan of Care End Date 12/22/21 Electronically Signed by: Aziza Santiago, PT 10/23/21 1110 Please Sign and Return: I have reviewed this Plan of Care and certify that the skilled therapy services above are required to meet the patient?s needs. Physician Signature Date Printed Name and Credentials Clinical Instructor Signature Printed Name and Credentials
--- NOTE | 2021-10-28 16:32 | PT.OTN ---
Current Diagnoses Unilateral primary osteoarthritis, right knee (10/28/21) Physical Therapy Treatment Note PT-OP-A Visit Information Start: 10/23/21 08:57 Freq: Status: Active Protocol: Document 10/28/21 13:46 SAK (Rec: 10/28/21 14:31 [facility] [id number]) Out-Patient Physical Therapy Visit Information Visit Information Visit Type Treatment Note Visit Start Time 13:46 Visit Stop Time 14:40 Total Visit Minutes 54 Visit Number 2 Evaluation Information Evaluation Date 10/23/21 PT-OP-B Current Condition Start: 10/23/21 08:57 Freq: Status: Active Protocol: Document 10/23/21 09:50 SAK (Rec: 10/23/21 11:09 SAK [id number]) Current Condition History of Current Condition Onset Date 10/13/21 Current Complaints right knee pain and gait dysfunction History of Current Condition 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 Referred to PT for rehab s/p right TKA. Has walker, cane, and walking sticks, cane, but comes to PT with no device, limping moderately. Follow- up with PA next week. Minimal exercises since going home. Wearing FÁTIMA hose. has mild dementia so patient does more around the home. Prior to severe pain used to walk 2 miles per day, prior to Covid was member of hiking group. Treatment Goals Patient/Caregiver Goals Be able to walk on all surfaces without pain. Has 14 stairs at home railing on one side. 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 Primary Therapy/Recovery caregiver for with dementia PT-OP-C Subjective Start: 10/23/21 08:57 Freq: Status: Active Protocol: Document 10/28/21 13:46 SAK (Rec: 10/28/21 14:31 SAK [id number]) OP-PT Subjective Patient Comments Patient Comments Saw PA today who told patient she was doing pretty well, continue with PT. Patient reports she ordered 2 new thigh-high compression stockings and likes much better, better fit. Compliant to HEP, icing and elevating PT-OP-F Manual Assessment Start: 10/23/21 08:57 Freq: Status: Active Protocol: Document 10/23/21 09:50 SAK (Rec: 10/23/21 11:09 [facility] [id number]) Manual Assessments Soft Tissue Assessment Soft Tissue Mobility Assessment extensive brusing right knee and lower leg to ankle. PT-OP-G Mobility & Gait Start: 10/23/21 08:57 Freq: Status: Active Protocol: Document 10/23/21 09:50 SAK (Rec: 10/23/21 11:09 [facility] [id number]) OP Mobility Evaluation Bed Mobility Rolling indep Supine to and from Sit indep Transfers Sit to Stand indep, min use of right LE PT-OP-J Posture/Palpation/Skin Start: 10/23/21 08:57 Freq: Status: Active Protocol: Document 10/23/21 09:50 [facility]AK (Rec: 10/23/21 11:09 [facility] [id number]) Palpation Assessment Location right knee Palpation Findings Edema,Muscle Guarding, Tenderness Palpation Details mild warmth right knee compared to left PT-OP-K Range of Motion Start: 10/23/21 08:57 Freq: Status: Active Protocol: Document 10/23/21 09:50 SAK (Rec: 10/23/21 11:09 [facility] [id number]) Knee Goniometric Range of Motion Knee Right Knee ROM WFL No Flexion Active (degrees) 84 Flexion Passive (degrees) 89 Extension Active (degrees) 24 Extension Passive (degrees) 8 Left Knee ROM WFL Yes Flexion Active (degrees) 120 Extension Active (degrees) 0 PT-OP-M Strength Start: 10/23/21 08:57 Freq: Status: Active Protocol: Document 10/23/21 09:50 SAK (Rec: 10/23/21 11:09 [facility] [id number]) Knee Strength Knee Manual Muscle Testing Right Flexion (S2) 3- Fair- Extension (L3) 3- Fair- Comments no MMT due to surgery 10/13/21 . Less than antigravity evident Left Flexion (S2) 5 Normal Extension (L3) 5 Normal Ankle/Foot Strength Ankle and Foot Manual Muscle Testing kvng Dorsiflexion (L4) 5 Normal Plantarflexion (S1) 5 Normal PT-OP-Q Treatments Start: 10/23/21 08:57 Freq: Status: Active Protocol: Document 10/28/21 13:46 [facility] (Rec: 10/28/21 14:31 [facility] [id number]) Cardio Equipment Bicycle (Upright) Duration (Minutes) 5 Resistance 0 Seat Position 4 Other rocking back and forth, unable to complete a revolution Gym Equipment Shuttle Recovery Bilateral Squats Resistance 50 Shuttle Recovery Platform Stable Therapeutic Exercises Supine Exercises gravity assisted knee flex Equipment Used slider sheet Comments on shuttle leg press machine SAQ Side bilateral Reps/Minutes 10x SLR Side right Reps/Minutes 10x heel slide Side right Comments 55 cm therapy ball (patient has at home) quad sets Side bilateral Reps/Minutes 10x Comments towel roll under ankle Sitting Exercises LAQ Side bilateral Reps/Minutes 3x Comments comparing sides Standing Exercises stair lunge Reps/Minutes 6x Comments 8 stair knee flexion Reps/Minutes 10x march Reps/Minutes 10x heel/toe raise Reps/Minutes 10x Gait Training Gait Activity 1 Description forward Device Used SPC Level of Assistance verbal cues Surface firm Distance/Duration 10'x4 Treatment Focus symmetry, heelstrike, relaxed knee Comments mirror for visual feedback Manual Therapy Treatment Soft Tissue Mobilization quads Mobilization Type Strumming Intensity/Depth gentle Body Position Hooklying Self-Care/Home Management Treatment Education Patient Education Home Exercise Program,Pain Management PT-OP-R Modalities Start: 10/23/21 08:57 Freq: Status: Active Protocol: Document 10/28/21 13:46 [facility] (Rec: 10/28/21 14:32 [facility] [id number]) Hot Pack/Cold Pack Treatment Cold Pack Location right knee Patient Position Hooklying Treatment Duration (minutes) 12 Comments during patient education PT-OP-T Assessment and Plan Start: 10/23/21 08:57 Freq: Status: Active Protocol: Document 10/28/21 13:46 [facility] (Rec: 10/28/21 14:31 [facility] [id number]) Physical Therapy Assessment Goals Three Impairment Lower extremity functional score 25% Short Term Goal (STG) Improve LEFS to at least 50% as measure of improved knee function STG Duration 11/23/21 Detention Goal (LTG) Improve LEFS to at least 75% as measure of improved right knee function LTG Duration 12/22/21 Two Impairment antalgic gait, step-to on stairs Short Term Goal (STG) Patient able to ambulate without limp on level surfaces with least restrictive device and ascend and descend stairs safely STG Duration 11/23/21 Detention Goal (LTG) Patient will be able to ambulate without limp without assistive device for at least short distance community ambulation and be able to ambulate on stairs with alternating pattern without difficulty LTG Duration 12/22/21 One Impairment R knee ROM restrictions 24-84 actively, lacking antigravity knee strength Short Term Goal (STG) Patient to be independent with HEP to address ROM and strength limitations STG Duration 11/23/21 Detention Goal (LTG) Patient to demonstrate right knee ROM 0-120 and right knee strength of at least 4/5 LTG Duration 12/22/21 Assessment Summary Assessment right knee AROM 12-105; good improvement in ROM. Unable to do full revolution on ex bike , will try ex bike at home. Able to tolerate progression of ther ex well. Lacks terminal knee extension. Physical Therapy Plan Frequency and Duration Frequency of Treatment 2x/Week Duration of Treatment 8 weeks Plan of Care Start Date 10/23/21 Plan of Care End Date 12/22/21 Therapeutic Interventions Therapeutic Interventions Aquatic Therapy Modalities Cold Pack/Ice Massage,Electric Stimulation,Hot Packs Next Visit Focus/Plan Next Note Type Treatment Note Next Visit Plan Continue exercise bike, progress TKA rehab with therapeutic exercises for ROM and strengthening, and gait training. Add standing knee extension with theraband. End with ice, and possible IFES depending on pain control . Update written HEP to include standing ex and supine gravity assisted knee flexion .
--- NOTE | 2021-10-31 15:11 | PT.OTN ---
Current Diagnoses Unilateral primary osteoarthritis, right knee (10/31/21) Physical Therapy Treatment Note PT-OP-A Visit Information Start: 10/23/21 08:57 Freq: Status: Active Protocol: Document 10/31/21 14:36 MA (Rec: 10/31/21 15:11 MA [id number]) Out-Patient Physical Therapy Visit Information Visit Information Visit Type Treatment Note Visit Note Pt requests finishing early due to dr monroy Visit Start Time 14:30 Visit Stop Time 15:10 Total Visit Minutes 40 Visit Number 3 Number of MODEL ENGINE MECHANIC Visits 1 PT-OP-B Current Condition Start: 10/23/21 08:57 Freq: Status: Active Protocol: Document 10/23/21 09:50 SAK (Rec: 10/23/21 11:09 SAK [id number]) Current Condition History of Current Condition Onset Date 10/13/21 Current Complaints right knee pain and gait dysfunction History of Current Condition 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 Referred to PT for rehab s/p right TKA. Has walker, cane, and walking sticks, cane, but comes to PT with no device, limping moderately. Follow- up with PA next week. Minimal exercises since going home. Wearing FÁTIMA hose. has mild dementia so patient does more around the home. Prior to severe pain used to walk 2 miles per day, prior to Covid was member of hiking group. Treatment Goals Patient/Caregiver Goals Be able to walk on all surfaces without pain. Has 14 stairs at home railing on one side. 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 Primary Therapy/Recovery caregiver for with dementia PT-OP-C Subjective Start: 10/23/21 08:57 Freq: Status: Active Protocol: Document 10/31/21 14:36 MA (Rec: 10/31/21 15:11 MA [id number]) OP-PT Subjective Patient Comments Patient Comments Pt has not been able to do full revolutions on bike at home yet. She needs to leave early this session due to sonal appt and requests icing the last ten minues PT-OP-F Manual Assessment Start: 10/23/21 08:57 Freq: Status: Active Protocol: Document 10/23/21 09:50 SAK (Rec: 10/23/21 11:09 [facility] [id number]) Manual Assessments Soft Tissue Assessment Soft Tissue Mobility Assessment extensive brusing right knee and lower leg to ankle. PT-OP-G Mobility & Gait Start: 10/23/21 08:57 Freq: Status: Active Protocol: Document 10/23/21 09:50 SAK (Rec: 10/23/21 11:09 [facility] [id number]) OP Mobility Evaluation Bed Mobility Rolling indep Supine to and from Sit indep Transfers Sit to Stand indep, min use of right LE PT-OP-J Posture/Palpation/Skin Start: 10/23/21 08:57 Freq: Status: Active Protocol: Document 10/23/21 09:50 SAK (Rec: 10/23/21 11:09 [facility] [id number]) Palpation Assessment Location right knee Palpation Findings Edema,Muscle Guarding, Tenderness Palpation Details mild warmth right knee compared to left PT-OP-K Range of Motion Start: 10/23/21 08:57 Freq: Status: Active Protocol: Document 10/23/21 09:50 SAK (Rec: 10/23/21 11:09 [facility] [id number]) Knee Goniometric Range of Motion Knee Right Knee ROM WFL No Flexion Active (degrees) 84 Flexion Passive (degrees) 89 Extension Active (degrees) 24 Extension Passive (degrees) 8 Left Knee ROM WFL Yes Flexion Active (degrees) 120 Extension Active (degrees) 0 PT-OP-M Strength Start: 10/23/21 08:57 Freq: Status: Active Protocol: Document 10/23/21 09:50 SAK (Rec: 10/23/21 11:09 [facility] [id number]) Knee Strength Knee Manual Muscle Testing Right Flexion (S2) 3- Fair- Extension (L3) 3- Fair- Comments no MMT due to surgery 10/13/21 . Less than antigravity evident Left Flexion (S2) 5 Normal Extension (L3) 5 Normal Ankle/Foot Strength Ankle and Foot Manual Muscle Testing kvng Dorsiflexion (L4) 5 Normal Plantarflexion (S1) 5 Normal PT-OP-Q Treatments Start: 10/23/21 08:57 Freq: Status: Active Protocol: Document 10/31/21 14:36 MA (Rec: 10/31/21 15:11 MA [id number]) Cardio Equipment Bicycle (Upright) Duration (Minutes) 5 Resistance 0 Seat Position 4 Other rocking back and forth, unable to complete a revolution Therapeutic Exercises Supine Exercises SLR Side right Reps/Minutes 10x heel slide Side right Comments 55 cm therapy ball (patient has at home) Standing Exercises stair lunge Standing Exercise Name lunge and straight leg HS stretch Reps/Minutes 6x Comments 8 stair heel/toe raise Reps/Minutes 10x Other Exercises Self-STM Other Exercise Name R quads w/ rolling pin Side right Equipment Used rolling pin Reps/Minutes 5' Comments w/ knee bent to 90 degrees and with straight leg seated in chair Manual Therapy Treatment Soft Tissue Mobilization quads Mobilization Type Strumming Intensity/Depth gentle Body Position Hooklying Comments Pt tolerates self-STM this session better than STM by PT Self-Care/Home Management Treatment Education Patient Education Home Exercise Program,Pain Management Other Education Added in to HEP self-STM with rolling pin to quads. Educated pt on only using ice for pain relief and to decrease swelling. Pt has previously been using ice pack for 10 min then using heat immediately after. Discussed trying not to prop R leg on pillows for comfort to avoid causing knee flexor contracture PT-OP-R Modalities Start: 10/23/21 08:57 Freq: Status: Active Protocol: Document 10/31/21 14:36 MA (Rec: 10/31/21 15:11 MA [id number]) Hot Pack/Cold Pack Treatment Cold Pack Location right knee Patient Position Hooklying Treatment Duration (minutes) 10 Comments during patient education PT-OP-T Assessment and Plan Start: 10/23/21 08:57 Freq: Status: Active Protocol: Document 10/31/21 14:36 MA (Rec: 10/31/21 15:11 MA [id number]) Physical Therapy Assessment Goals Three Impairment Lower extremity functional score 25% Short Term Goal (STG) Improve LEFS to at least 50% as measure of improved knee function STG Duration 11/23/21 Nursing Home Goal (LTG) Improve LEFS to at least 75% as measure of improved right knee function LTG Duration 12/22/21 Two Impairment antalgic gait, step-to on stairs Short Term Goal (STG) Patient able to ambulate without limp on level surfaces with least restrictive device and ascend and descend stairs safely STG Duration 11/23/21 Milk Deliverer Goal (LTG) Patient will be able to ambulate without limp without assistive device for at least short distance community ambulation and be able to ambulate on stairs with alternating pattern without difficulty LTG Duration 12/22/21 One Impairment R knee ROM restrictions 24-84 actively, lacking antigravity knee strength Short Term Goal (STG) Patient to be independent with HEP to address ROM and strength limitations STG Duration 11/23/21 Milk Deliverer Goal (LTG) Patient to demonstrate right knee ROM 0-120 and right knee strength of at least 4/5 LTG Duration 12/22/21 Assessment Summary Assessment Pt R knee AROM 11-100 this session. She is still unable to complete full revolutions on exercise bike but reports today's ROM is better than previous session. Pt continues to have difficulty with knee extension. Educated pt on avoiding propping RLE on pillows when resting. Pt has been using ice at home then switching immediately to heat. Discussed trying to use only ice and then use a towel or blanket to wrap leg for warmth vs using heating pad due to heat increasing swelling. Pt had to leave session at 15:10 due to 's appt this afternoon. Physical Therapy Plan Frequency and Duration Frequency of Treatment 2x/Week Duration of Treatment 8 weeks Plan of Care Start Date 10/23/21 Plan of Care End Date 12/22/21 Therapeutic Interventions Therapeutic Interventions Aquatic Therapy Modalities Cold Pack/Ice Massage,Electric Stimulation,Hot Packs Next Visit Focus/Plan Next Note Type Treatment Note Next Visit Plan Continue exercise bike, progress TKA rehab with therapeutic exercises for ROM and strengthening, and gait training. Add standing knee extension with theraband. End with ice, and possible IFES depending on pain control . Update written HEP to include standing ex and supine gravity assisted knee flexion .
--- NOTE | 2021-11-07 12:05 | PT.OTN ---
Current Diagnoses Unilateral primary osteoarthritis, right knee (11/07/21) Physical Therapy Treatment Note PT-OP-A Visit Information Start: 10/23/21 08:57 Freq: Status: Active Protocol: Document 11/07/21 11:14 MA (Rec: 11/07/21 12:05 MA [id number]) Out-Patient Physical Therapy Visit Information Visit Information Visit Type Treatment Note Visit Start Time 11:15 Visit Stop Time 12:05 Total Visit Minutes 50 Visit Number 4 Number of TYPEWRITER ASSEMBLER Visits 2 PT-OP-B Current Condition Start: 10/23/21 08:57 Freq: Status: Active Protocol: Document 10/23/21 09:50 SAK (Rec: 10/23/21 11:09 SAK [id number]) Current Condition History of Current Condition Onset Date 10/13/21 Current Complaints right knee pain and gait dysfunction History of Current Condition 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 Referred to PT for rehab s/p right TKA. Has walker, cane, and walking sticks, cane, but comes to PT with no device, limping moderately. Follow- up with PA next week. Minimal exercises since going home. Wearing FÁTIMA hose. has mild dementia so patient does more around the home. Prior to severe pain used to walk 2 miles per day, prior to Covid was member of hiking group. Treatment Goals Patient/Caregiver Goals Be able to walk on all surfaces without pain. Has 14 stairs at home railing on one side. 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 Primary Therapy/Recovery caregiver for with dementia PT-OP-C Subjective Start: 10/23/21 08:57 Freq: Status: Active Protocol: Document 11/07/21 11:14 MA (Rec: 11/07/21 12:05 MA [id number]) OP-PT Subjective Patient Comments Patient Comments Pt has stopped using her heating pad on her knee per TYPEWRITER ASSEMBLER's request. SHe is able to do full revolutions on her bike at home after she warms up. SHe does all her exercises at least once a day but says she doesn't always do them twice. PT-OP-F Manual Assessment Start: 10/23/21 08:57 Freq: Status: Active Protocol: Document 10/23/21 09:50 SAK (Rec: 10/23/21 11:09 [facility] [id number]) Manual Assessments Soft Tissue Assessment Soft Tissue Mobility Assessment extensive brusing right knee and lower leg to ankle. PT-OP-G Mobility & Gait Start: 10/23/21 08:57 Freq: Status: Active Protocol: Document 10/23/21 09:50 SAK (Rec: 10/23/21 11:09 [facility] [id number]) OP Mobility Evaluation Bed Mobility Rolling indep Supine to and from Sit indep Transfers Sit to Stand indep, min use of right LE PT-OP-J Posture/Palpation/Skin Start: 10/23/21 08:57 Freq: Status: Active Protocol: Document 10/23/21 09:50 SAK (Rec: 10/23/21 11:09 [facility] [id number]) Palpation Assessment Location right knee Palpation Findings Edema,Muscle Guarding, Tenderness Palpation Details mild warmth right knee compared to left PT-OP-K Range of Motion Start: 10/23/21 08:57 Freq: Status: Active Protocol: Document 10/23/21 09:50 SAK (Rec: 10/23/21 11:09 [facility] [id number]) Knee Goniometric Range of Motion Knee Right Knee ROM WFL No Flexion Active (degrees) 84 Flexion Passive (degrees) 89 Extension Active (degrees) 24 Extension Passive (degrees) 8 Left Knee ROM WFL Yes Flexion Active (degrees) 120 Extension Active (degrees) 0 PT-OP-M Strength Start: 10/23/21 08:57 Freq: Status: Active Protocol: Document 10/23/21 09:50 SAK (Rec: 10/23/21 11:09 [facility] [id number]) Knee Strength Knee Manual Muscle Testing Right Flexion (S2) 3- Fair- Extension (L3) 3- Fair- Comments no MMT due to surgery 10/13/21 . Less than antigravity evident Left Flexion (S2) 5 Normal Extension (L3) 5 Normal Ankle/Foot Strength Ankle and Foot Manual Muscle Testing kvng Dorsiflexion (L4) 5 Normal Plantarflexion (S1) 5 Normal PT-OP-Q Treatments Start: 10/23/21 08:57 Freq: Status: Active Protocol: Document 11/07/21 11:14 MA (Rec: 11/07/21 12:05 MA [id number]) Cardio Equipment Bicycle (Upright) Duration (Minutes) 7 Resistance 0 Seat Position 4 Other rocking back and forth, unable to complete a revolution Gym Equipment Shuttle Recovery Bilateral Squats Details 2x10 Resistance 50 Shuttle Recovery Platform Stable Therapeutic Exercises Supine Exercises SAQ Side bilateral Reps/Minutes 10x heel slide Side right Reps/Minutes 2x10 Comments 55 cm therapy ball (patient has at home) quad sets Side bilateral Reps/Minutes 10x Comments towel roll under ankle Manual Therapy Treatment Soft Tissue Mobilization Scar Body Location along proximal scar quads Mobilization Type Strumming,Sustained Pressure, Trigger Point Release Intensity/Depth gentle Body Position Hooklying PT-OP-R Modalities Start: 10/23/21 08:57 Freq: Status: Active Protocol: Document 11/07/21 11:14 MA (Rec: 11/07/21 12:05 MA [id number]) Hot Pack/Cold Pack Treatment Cold Pack Location right knee Patient Position Hooklying Treatment Duration (minutes) 10 Comments during patient education PT-OP-T Assessment and Plan Start: 10/23/21 08:57 Freq: Status: Active Protocol: Document 11/07/21 11:14 MA (Rec: 11/07/21 12:05 MA [id number]) Physical Therapy Assessment Goals Three Impairment Lower extremity functional score 25% Short Term Goal (STG) Improve LEFS to at least 50% as measure of improved knee function STG Duration 11/23/21 Vice President Payer Goal (LTG) Improve LEFS to at least 75% as measure of improved right knee function LTG Duration 12/22/21 Two Impairment antalgic gait, step-to on stairs Short Term Goal (STG) Patient able to ambulate without limp on level surfaces with least restrictive device and ascend and descend stairs safely STG Duration 11/23/21 Vice President Payer Goal (LTG) Patient will be able to ambulate without limp without assistive device for at least short distance community ambulation and be able to ambulate on stairs with alternating pattern without difficulty LTG Duration 12/22/21 One Impairment R knee ROM restrictions 24-84 actively, lacking antigravity knee strength Short Term Goal (STG) Patient to be independent with HEP to address ROM and strength limitations STG Duration 11/23/21 Vice President Payer Goal (LTG) Patient to demonstrate right knee ROM 0-120 and right knee strength of at least 4/5 LTG Duration 12/22/21 Assessment Summary Assessment Pt's R knee AROM has improved to 7-113 degrees. She is able to complete full revolutions on bike after warming up by rocking peddles for a few minutes first. Discussed pt being better about completing all exercises twice a day, expecially quad sets to improve active knee extension. Physical Therapy Plan Frequency and Duration Frequency of Treatment 2x/Week Duration of Treatment 8 weeks Plan of Care Start Date 10/23/21 Plan of Care End Date 12/22/21 Therapeutic Interventions Therapeutic Interventions Aquatic Therapy Modalities Cold Pack/Ice Massage,Electric Stimulation,Hot Packs Next Visit Focus/Plan Next Note Type Treatment Note Next Visit Plan Continue exercise bike, progress TKA rehab with therapeutic exercises for ROM and strengthening, and gait training. Add standing knee extension with theraband. End with ice, and possible IFES depending on pain control . Update written HEP to include standing ex and supine gravity assisted knee flexion .
--- NOTE | 2021-11-11 10:00 | PT.OTN ---
Current Diagnoses Unilateral primary osteoarthritis, right knee (11/11/21) Physical Therapy Treatment Note PT-OP-A Visit Information Start: 10/23/21 08:57 Freq: Status: Active Protocol: Document 11/11/21 09:52 SAK (Rec: 11/11/21 10:[address] [facility] [id number]) Out-Patient Physical Therapy Visit Information Visit Information Visit Type Treatment Note Visit Start Time 09:50 Visit Stop Time 10:50 Total Visit Minutes 60 Visit Number 5 Number of CREATIVE DIRECTOR Visits 0 PT-OP-B Current Condition Start: 10/23/21 08:57 Freq: Status: Active Protocol: Document 10/23/21 09:50 SAK (Rec: 10/23/21 11:09 SAK [id number]) Current Condition History of Current Condition Onset Date 10/13/21 Current Complaints right knee pain and gait dysfunction History of Current Condition 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 Referred to PT for rehab s/p right TKA. Has walker, cane, and walking sticks, cane, but comes to PT with no device, limping moderately. Follow- up with PA next week. Minimal exercises since going home. Wearing FÁTIMA hose. has mild dementia so patient does more around the home. Prior to severe pain used to walk 2 miles per day, prior to Covid was member of hiking group. Treatment Goals Patient/Caregiver Goals Be able to walk on all surfaces without pain. Has 14 stairs at home railing on one side. 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 Primary Therapy/Recovery caregiver for with dementia PT-OP-C Subjective Start: 10/23/21 08:57 Freq: Status: Active Protocol: Document 11/11/21 09:52 SAK (Rec: 11/11/21 10:[address] [facility] [id number]) OP-PT Subjective Patient Comments Patient Comments using her bike 2 days per week , doing her exercises some but as not as you want me to. Feeling very tight today. Walking limited by pain. PT-OP-F Manual Assessment Start: 10/23/21 08:57 Freq: Status: Active Protocol: Document 10/23/21 09:50 SAK (Rec: 10/23/21 11:[address] [facility] [id number]) Manual Assessments Soft Tissue Assessment Soft Tissue Mobility Assessment extensive brusing right knee and lower leg to ankle. PT-OP-G Mobility & Gait Start: 10/23/21 08:57 Freq: Status: Active Protocol: Document 10/23/21 09:50 SAK (Rec: 10/23/21 11:[address] [facility] [id number]) OP Mobility Evaluation Bed Mobility Rolling indep Supine to and from Sit indep Transfers Sit to Stand indep, min use of right LE PT-OP-J Posture/Palpation/Skin Start: 10/23/21 08:57 Freq: Status: Active Protocol: Document 10/23/21 09:50 SAK (Rec: 10/23/21 11:[address] [facility] [id number]) Palpation Assessment Location right knee Palpation Findings Edema,Muscle Guarding, Tenderness Palpation Details mild warmth right knee compared to left PT-OP-K Range of Motion Start: 10/23/21 08:57 Freq: Status: Active Protocol: Document 10/23/21 09:50 SAK (Rec: 10/23/21 11:[address] [facility] [id number]) Knee Goniometric Range of Motion Knee Right Knee ROM WFL No Flexion Active (degrees) 84 Flexion Passive (degrees) 89 Extension Active (degrees) 24 Extension Passive (degrees) 8 Left Knee ROM WFL Yes Flexion Active (degrees) 120 Extension Active (degrees) 0 PT-OP-M Strength Start: 10/23/21 08:57 Freq: Status: Active Protocol: Document 10/23/21 09:50 SAK (Rec: 10/23/21 11:[address] [facility] [id number]) Knee Strength Knee Manual Muscle Testing Right Flexion (S2) 3- Fair- Extension (L3) 3- Fair- Comments no MMT due to surgery 10/13/21 . Less than antigravity evident Left Flexion (S2) 5 Normal Extension (L3) 5 Normal Ankle/Foot Strength Ankle and Foot Manual Muscle Testing kvng Dorsiflexion (L4) 5 Normal Plantarflexion (S1) 5 Normal PT-OP-Q Treatments Start: 10/23/21 08:57 Freq: Status: Active Protocol: Document 11/11/21 09:[address] [facility] (Rec: 11/11/21 10:[address] [facility] [id number]) Cardio Equipment Bicycle (Upright) Duration (Minutes) 8 Resistance 0 Seat Position 4 Other rocking back and forth, unable to complete a revolution Gym Equipment Shuttle Recovery Unilateral Squats Resistance 25 Shuttle Recovery Platform Stable Bilateral Squats Details 2x10 Resistance 50 Shuttle Recovery Platform Stable Therapeutic Exercises Supine Exercises hamstring stretch Reps/Minutes 2x30 bridge Side bilateral Equipment Used 55 cm therapy ball Reps/Minutes 10x gravity assisted knee flex Equipment Used slider sheet Comments on shuttle leg press machine Standing Exercises standing knee extension Equipment Used L1 TB Reps/Minutes 10x Manual Therapy Treatment Soft Tissue Mobilization Scar Body Location along proximal scar quads Mobilization Type Strumming,Sustained Pressure, Trigger Point Release Intensity/Depth gentle Body Position Hooklying Self-Care/Home Management Treatment Education Patient Education Home Exercise Program,Pain Management Other Education increase HEP compliance, especially use of exercise bike. PT-OP-R Modalities Start: 10/23/21 08:57 Freq: Status: Active Protocol: Document 11/11/21 09:[address] [facility] (Rec: 11/11/21 10:[address] [facility] [id number]) Hot Pack/Cold Pack Treatment Cold Pack Location right knee Patient Position Hooklying Treatment Duration (minutes) 10 Comments during patient education PT-OP-T Assessment and Plan Start: 10/23/21 08:57 Freq: Status: Active Protocol: Document 11/11/21 09:[address] [facility] (Rec: 11/11/21 10:[address] [facility] [id number]) Physical Therapy Assessment Goals Three Impairment Lower extremity functional score 25% Short Term Goal (STG) Improve LEFS to at least 50% as measure of improved knee function STG Duration 11/23/21 Retirement Goal (LTG) Improve LEFS to at least 75% as measure of improved right knee function LTG Duration 12/22/21 Two Impairment antalgic gait, step-to on stairs Short Term Goal (STG) Patient able to ambulate without limp on level surfaces with least restrictive device and ascend and descend stairs safely STG Duration 11/23/21 Clinical Reviewer Goal (LTG) Patient will be able to ambulate without limp without assistive device for at least short distance community ambulation and be able to ambulate on stairs with alternating pattern without difficulty LTG Duration 12/22/21 One Impairment R knee ROM restrictions 24-84 actively, lacking antigravity knee strength Short Term Goal (STG) Patient to be independent with HEP to address ROM and strength limitations STG Duration 11/23/21 Clinical Reviewer Goal (LTG) Patient to demonstrate right knee ROM 0-120 and right knee strength of at least 4/5 LTG Duration 12/22/21 Assessment Summary Assessment ROM 5-115 after treatment. Able to complete full revolution on bike when raised to level 5. Increased compliance to HEP encouraged. Within next week should be able to start scar mobilization. Reviewed benefits of using rolling pin on quads. Physical Therapy Plan Frequency and Duration Frequency of Treatment 2x/Week Duration of Treatment 8 weeks Plan of Care Start Date 10/23/21 Plan of Care End Date 12/22/21 Therapeutic Interventions Therapeutic Interventions Aquatic Therapy Modalities Cold Pack/Ice Massage,Electric Stimulation,Hot Packs Next Visit Focus/Plan Next Note Type Treatment Note Next Visit Plan Continue TKA rehab. Prone knee extension stretch. Contract/relax technique to inc knee flex. Instruct in use of rolling pin for self quad massage.
--- NOTE | 2021-11-11 12:18 | PT.OTN ---
Current Diagnoses Unilateral primary osteoarthritis, right knee (11/11/21) Physical Therapy Treatment Note PT-OP-A Visit Information Start: 10/23/21 08:57 Freq: Status: Active Protocol: Document 11/11/21 09:52 SAK (Rec: 11/11/21 10:01 [facility] [id number]) Out-Patient Physical Therapy Visit Information Visit Information Visit Type Treatment Note Visit Start Time 09:50 Visit Stop Time 10:40 Total Visit Minutes 50 Visit Number 5 Number of ASSOCIATE DRAFTER Visits 0 PT-OP-B Current Condition Start: 10/23/21 08:57 Freq: Status: Active Protocol: Document 10/23/21 09:50 SAK (Rec: 10/23/21 11:09 SAK [id number]) Current Condition History of Current Condition Onset Date 10/13/21 Current Complaints right knee pain and gait dysfunction History of Current Condition 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 Referred to PT for rehab s/p right TKA. Has walker, cane, and walking sticks, cane, but comes to PT with no device, limping moderately. Follow- up with PA next week. Minimal exercises since going home. Wearing FÁTIMA hose. has mild dementia so patient does more around the home. Prior to severe pain used to walk 2 miles per day, prior to Covid was member of hiking group. Treatment Goals Patient/Caregiver Goals Be able to walk on all surfaces without pain. Has 14 stairs at home railing on one side. 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 Primary Therapy/Recovery caregiver for with dementia PT-OP-C Subjective Start: 10/23/21 08:57 Freq: Status: Active Protocol: Document 11/11/21 09:52 SAK (Rec: 11/11/21 10:01 [facility] [id number]) OP-PT Subjective Patient Comments Patient Comments using her bike 2 days per week , doing her exercises some but as not as you want me to. Feeling very tight today. Walking limited by pain. PT-OP-F Manual Assessment Start: 10/23/21 08:57 Freq: Status: Active Protocol: Document 10/23/21 09:50 SAK (Rec: 10/23/21 11:09 [facility] [id number]) Manual Assessments Soft Tissue Assessment Soft Tissue Mobility Assessment extensive brusing right knee and lower leg to ankle. PT-OP-G Mobility & Gait Start: 10/23/21 08:57 Freq: Status: Active Protocol: Document 10/23/21 09:50 SAK (Rec: 10/23/21 11:09 [facility] [id number]) OP Mobility Evaluation Bed Mobility Rolling indep Supine to and from Sit indep Transfers Sit to Stand indep, min use of right LE PT-OP-J Posture/Palpation/Skin Start: 10/23/21 08:57 Freq: Status: Active Protocol: Document 10/23/21 09:50 SAK (Rec: 10/23/21 11:09 [facility] [id number]) Palpation Assessment Location right knee Palpation Findings Edema,Muscle Guarding, Tenderness Palpation Details mild warmth right knee compared to left PT-OP-K Range of Motion Start: 10/23/21 08:57 Freq: Status: Active Protocol: Document 10/23/21 09:50 SAK (Rec: 10/23/21 11:09 [facility] [id number]) Knee Goniometric Range of Motion Knee Right Knee ROM WFL No Flexion Active (degrees) 84 Flexion Passive (degrees) 89 Extension Active (degrees) 24 Extension Passive (degrees) 8 Left Knee ROM WFL Yes Flexion Active (degrees) 120 Extension Active (degrees) 0 PT-OP-M Strength Start: 10/23/21 08:57 Freq: Status: Active Protocol: Document 10/23/21 09:50 SAK (Rec: 10/23/21 11:09 [facility] [id number]) Knee Strength Knee Manual Muscle Testing Right Flexion (S2) 3- Fair- Extension (L3) 3- Fair- Comments no MMT due to surgery 10/13/21 . Less than antigravity evident Left Flexion (S2) 5 Normal Extension (L3) 5 Normal Ankle/Foot Strength Ankle and Foot Manual Muscle Testing kvng Dorsiflexion (L4) 5 Normal Plantarflexion (S1) 5 Normal PT-OP-Q Treatments Start: 10/23/21 08:57 Freq: Status: Active Protocol: Document 11/11/21 09:52 [facility] (Rec: 11/11/21 10:01 [facility] [id number]) Cardio Equipment Bicycle (Upright) Duration (Minutes) 8 Resistance 0 Seat Position 4 Other rocking back and forth, unable to complete a revolution Gym Equipment Shuttle Recovery Unilateral Squats Resistance 25 Shuttle Recovery Platform Stable Bilateral Squats Details 2x10 Resistance 50 Shuttle Recovery Platform Stable Therapeutic Exercises Supine Exercises hamstring stretch Reps/Minutes 2x30 bridge Side bilateral Equipment Used 55 cm therapy ball Reps/Minutes 10x gravity assisted knee flex Equipment Used slider sheet Comments on shuttle leg press machine Standing Exercises standing knee extension Equipment Used L1 TB Reps/Minutes 10x Manual Therapy Treatment Soft Tissue Mobilization Scar Body Location along proximal scar quads Mobilization Type Strumming,Sustained Pressure, Trigger Point Release Intensity/Depth gentle Body Position Hooklying Self-Care/Home Management Treatment Education Patient Education Home Exercise Program,Pain Management Other Education increase HEP compliance, especially use of exercise bike. PT-OP-R Modalities Start: 10/23/21 08:57 Freq: Status: Active Protocol: Document 11/11/21 09:52 [facility] (Rec: 11/11/21 10:01 [facility] [id number]) Hot Pack/Cold Pack Treatment Cold Pack Location right knee Patient Position Hooklying Treatment Duration (minutes) 10 Comments during patient education PT-OP-T Assessment and Plan Start: 10/23/21 08:57 Freq: Status: Active Protocol: Document 11/11/21 09:52 [facility] (Rec: 11/11/21 10:01 [facility] [id number]) Physical Therapy Assessment Goals Three Impairment Lower extremity functional score 25% Short Term Goal (STG) Improve LEFS to at least 50% as measure of improved knee function STG Duration 11/23/21 Jail Goal (LTG) Improve LEFS to at least 75% as measure of improved right knee function LTG Duration 12/22/21 Two Impairment antalgic gait, step-to on stairs Short Term Goal (STG) Patient able to ambulate without limp on level surfaces with least restrictive device and ascend and descend stairs safely STG Duration 11/23/21 House Moving Supervisor Goal (LTG) Patient will be able to ambulate without limp without assistive device for at least short distance community ambulation and be able to ambulate on stairs with alternating pattern without difficulty LTG Duration 12/22/21 One Impairment R knee ROM restrictions 24-84 actively, lacking antigravity knee strength Short Term Goal (STG) Patient to be independent with HEP to address ROM and strength limitations STG Duration 11/23/21 House Moving Supervisor Goal (LTG) Patient to demonstrate right knee ROM 0-120 and right knee strength of at least 4/5 LTG Duration 12/22/21 Assessment Summary Assessment ROM 5-115 after treatment. Able to complete full revolution on bike when raised to level 5. Increased compliance to HEP encouraged. Within next week should be able to start scar mobilization. Reviewed benefits of using rolling pin on quads. Physical Therapy Plan Frequency and Duration Frequency of Treatment 2x/Week Duration of Treatment 8 weeks Plan of Care Start Date 10/23/21 Plan of Care End Date 12/22/21 Therapeutic Interventions Therapeutic Interventions Aquatic Therapy Modalities Cold Pack/Ice Massage,Electric Stimulation,Hot Packs Next Visit Focus/Plan Next Note Type Treatment Note Next Visit Plan Continue TKA rehab. Prone knee extension stretch. Contract/relax technique to inc knee flex.
--- NOTE | 2021-11-12 08:52 | PT.OTN ---
Current Diagnoses Unilateral primary osteoarthritis, right knee (11/11/21) Physical Therapy Treatment Note PT-OP-A Visit Information Start: 10/23/21 08:57 Freq: Status: Active Protocol: Document 11/11/21 09:52 SAK (Rec: 11/11/21 10:01 [facility] [id number]) Out-Patient Physical Therapy Visit Information Visit Information Visit Type Treatment Note Visit Start Time 09:50 Visit Stop Time 10:40 Total Visit Minutes 50 Visit Number 5 Number of SCREENER OPERATOR Visits 0 PT-OP-B Current Condition Start: 10/23/21 08:57 Freq: Status: Active Protocol: Document 10/23/21 09:50 SAK (Rec: 10/23/21 11:09 SAK [id number]) Current Condition History of Current Condition Onset Date 10/13/21 Current Complaints right knee pain and gait dysfunction History of Current Condition 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 Referred to PT for rehab s/p right TKA. Has walker, cane, and walking sticks, cane, but comes to PT with no device, limping moderately. Follow- up with PA next week. Minimal exercises since going home. Wearing FÁTIMA hose. has mild dementia so patient does more around the home. Prior to severe pain used to walk 2 miles per day, prior to Covid was member of hiking group. Treatment Goals Patient/Caregiver Goals Be able to walk on all surfaces without pain. Has 14 stairs at home railing on one side. 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 Feeling very tight today. Walking limited by pain. PT-OP-F Manual Assessment Start: 10/23/21 08:57 Freq: Status: Active Protocol: Document 10/23/21 09:50 SAK (Rec: 10/23/21 11:09 [facility] [id number]) Manual Assessments Soft Tissue Assessment Soft Tissue Mobility Assessment extensive brusing right knee and lower leg to ankle. PT-OP-G Mobility & Gait Start: 10/23/21 08:57 Freq: Status: Active Protocol: Document 10/23/21 09:50 SAK (Rec: 10/23/21 11:09 [facility] [id number]) OP Mobility Evaluation Bed Mobility Rolling indep Supine to and from Sit indep Transfers Sit to Stand indep, min use of right LE PT-OP-J Posture/Palpation/Skin Start: 10/23/21 08:57 Freq: Status: Active Protocol: Document 10/23/21 09:50 SAK (Rec: 10/23/21 11:09 [facility] [id number]) Palpation Assessment Location right knee Palpation Findings Edema,Muscle Guarding, Tenderness Palpation Details mild warmth right knee compared to left PT-OP-K Range of Motion Start: 10/23/21 08:57 Freq: Status: Active Protocol: Document 10/23/21 09:50 SAK (Rec: 10/23/21 11:09 [facility] [id number]) Knee Goniometric Range of Motion Knee Right Knee ROM WFL No Flexion Active (degrees) 84 Flexion Passive (degrees) 89 Extension Active (degrees) 24 Extension Passive (degrees) 8 Left Knee ROM WFL Yes Flexion Active (degrees) 120 Extension Active (degrees) 0 PT-OP-M Strength Start: 10/23/21 08:57 Freq: Status: Active Protocol: Document 10/23/21 09:50 SAK (Rec: 10/23/21 11:09 [facility] [id number]) Knee Strength Knee Manual Muscle Testing Right Flexion (S2) 3- Fair- Extension (L3) 3- Fair- Comments no MMT due to surgery 10/13/21 . Less than antigravity evident Left Flexion (S2) 5 Normal Extension (L3) 5 Normal Ankle/Foot Strength Ankle and Foot Manual Muscle Testing kvng Dorsiflexion (L4) 5 Normal Plantarflexion (S1) 5 Normal PT-OP-Q Treatments Start: 10/23/21 08:57 Freq: Status: Active Protocol: Document 11/11/21 09:52 [facility] (Rec: 11/11/21 10:01 [facility] [id number]) Cardio Equipment Bicycle (Upright) Duration (Minutes) 8 Resistance 0 Seat Position 4 Other rocking back and forth, unable to complete a revolution Gym Equipment Shuttle Recovery Unilateral Squats Resistance 25 Shuttle Recovery Platform Stable Bilateral Squats Details 2x10 Resistance 50 Shuttle Recovery Platform Stable Therapeutic Exercises Supine Exercises hamstring stretch Reps/Minutes 2x30 bridge Side bilateral Equipment Used 55 cm therapy ball Reps/Minutes 10x gravity assisted knee flex Equipment Used slider sheet Comments on shuttle leg press machine Standing Exercises standing knee extension Equipment Used L1 TB Reps/Minutes 10x Manual Therapy Treatment Soft Tissue Mobilization Scar Body Location along proximal scar quads Mobilization Type Strumming,Sustained Pressure, Trigger Point Release Intensity/Depth gentle Body Position Hooklying Self-Care/Home Management Treatment Education Patient Education Home Exercise Program,Pain Management Other Education increase HEP compliance, especially use of exercise bike. PT-OP-R Modalities Start: 10/23/21 08:57 Freq: Status: Active Protocol: Document 11/11/21 09:52 [facility] (Rec: 11/11/21 10:01 [facility] [id number]) Hot Pack/Cold Pack Treatment Cold Pack Location right knee Patient Position Hooklying Treatment Duration (minutes) 10 Comments during patient education PT-OP-T Assessment and Plan Start: 10/23/21 08:57 Freq: Status: Active Protocol: Document 11/11/21 09:52 [facility] (Rec: 11/11/21 10:01 [facility] [id number]) Physical Therapy Assessment Goals Three Impairment Lower extremity functional score 25% Short Term Goal (STG) Improve LEFS to at least 50% as measure of improved knee function STG Duration 11/23/21 Group Home Goal (LTG) Improve LEFS to at least 75% as measure of improved right knee function LTG Duration 12/22/21 Two Impairment antalgic gait, step-to on stairs Short Term Goal (STG) Patient able to ambulate without limp on level surfaces with least restrictive device and ascend and descend stairs safely STG Duration 11/23/21 Computer Operations Technician Goal (LTG) Patient will be able to ambulate without limp without assistive device for at least short distance community ambulation and be able to ambulate on stairs with alternating pattern without difficulty LTG Duration 12/22/21 One Impairment R knee ROM restrictions 24-84 actively, lacking antigravity knee strength Short Term Goal (STG) Patient to be independent with HEP to address ROM and strength limitations STG Duration 11/23/21 Computer Operations Technician Goal (LTG) Patient to demonstrate right knee ROM 0-120 and right knee strength of at least 4/5 LTG Duration 12/22/21 Assessment Summary Assessment ROM 5-115 after treatment. Able to complete full revolution on bike when raised to level 5. Increased compliance to HEP encouraged. Within next week should be able to start scar mobilization. Reviewed benefits of using rolling pin on quads. Physical Therapy Plan Frequency and Duration Frequency of Treatment 2x/Week Duration of Treatment 8 weeks Plan of Care Start Date 10/23/21 Plan of Care End Date 12/22/21 Therapeutic Interventions Therapeutic Interventions Aquatic Therapy Modalities Cold Pack/Ice Massage,Electric Stimulation,Hot Packs Next Visit Focus/Plan Next Note Type Treatment Note Next Visit Plan Continue TKA rehab. Prone knee extension stretch. Contract/relax technique to inc knee flex. Instruct in use of rolling pin for self quad massage.
--- NOTE | 2021-11-14 13:27 | PT.OTN ---
Current Diagnoses Unilateral primary osteoarthritis, right knee (11/14/21) Physical Therapy Treatment Note PT-OP-A Visit Information Start: 10/23/21 08:57 Freq: Status: Active Protocol: Document 11/14/21 10:27 MA (Rec: 11/14/21 11:18 [facility] [id number]) Out-Patient Physical Therapy Visit Information Visit Information Visit Type Treatment Note Visit Start Time 10:30 Visit Stop Time 11:20 Total Visit Minutes 50 Visit Number 6 Number of TOBACCO SPRAYER Visits 1 PT-OP-B Current Condition Start: 10/23/21 08:57 Freq: Status: Active Protocol: Document 10/23/21 09:50 SAK (Rec: 10/23/21 11:09 SAK [id number]) Current Condition History of Current Condition Onset Date 10/13/21 Current Complaints right knee pain and gait dysfunction History of Current Condition 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 Referred to PT for rehab s/p right TKA. Has walker, cane, and walking sticks, cane, but comes to PT with no device, limping moderately. Follow- up with PA next week. Minimal exercises since going home. Wearing FÁTIMA hose. has mild dementia so patient does more around the home. Prior to severe pain used to walk 2 miles per day, prior to Covid was member of hiking group. Treatment Goals Patient/Caregiver Goals Be able to walk on all surfaces without pain. Has 14 stairs at home railing on one side. 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 Primary Therapy/Recovery caregiver for with dementia PT-OP-C Subjective Start: 10/23/21 08:57 Freq: Status: Active Protocol: Document 11/14/21 10:27 MA (Rec: 11/14/21 11:18 MA [id number]) OP-PT Subjective Patient Comments Patient Comments Pt feels that scar mobs have been kind of painful but they feel like they help a lot. She would like to be able to drive next week so she can take her car in to the dealership. PT-OP-F Manual Assessment Start: 10/23/21 08:57 Freq: Status: Active Protocol: Document 10/23/21 09:50 SAK (Rec: 10/23/21 11:09 [facility] [id number]) Manual Assessments Soft Tissue Assessment Soft Tissue Mobility Assessment extensive brusing right knee and lower leg to ankle. PT-OP-G Mobility & Gait Start: 10/23/21 08:57 Freq: Status: Active Protocol: Document 10/23/21 09:50 SAK (Rec: 10/23/21 11:09 [facility] [id number]) OP Mobility Evaluation Bed Mobility Rolling indep Supine to and from Sit indep Transfers Sit to Stand indep, min use of right LE PT-OP-J Posture/Palpation/Skin Start: 10/23/21 08:57 Freq: Status: Active Protocol: Document 10/23/21 09:50 SAK (Rec: 10/23/21 11:09 [facility] [id number]) Palpation Assessment Location right knee Palpation Findings Edema,Muscle Guarding, Tenderness Palpation Details mild warmth right knee compared to left PT-OP-K Range of Motion Start: 10/23/21 08:57 Freq: Status: Active Protocol: Document 10/23/21 09:50 [facility] (Rec: 10/23/21 11:09 [facility] [id number]) Knee Goniometric Range of Motion Knee Right Knee ROM WFL No Flexion Active (degrees) 84 Flexion Passive (degrees) 89 Extension Active (degrees) 24 Extension Passive (degrees) 8 Left Knee ROM WFL Yes Flexion Active (degrees) 120 Extension Active (degrees) 0 PT-OP-M Strength Start: 10/23/21 08:57 Freq: Status: Active Protocol: Document 10/23/21 09:50 [facility] (Rec: 10/23/21 11:09 [facility] [id number]) Knee Strength Knee Manual Muscle Testing Right Flexion (S2) 3- Fair- Extension (L3) 3- Fair- Comments no MMT due to surgery 10/13/21 . Less than antigravity evident Left Flexion (S2) 5 Normal Extension (L3) 5 Normal Ankle/Foot Strength Ankle and Foot Manual Muscle Testing kvng Dorsiflexion (L4) 5 Normal Plantarflexion (S1) 5 Normal PT-OP-Q Treatments Start: 10/23/21 08:57 Freq: Status: Active Protocol: Document 11/14/21 10:27 MA (Rec: 11/14/21 11:18 [facility] [id number]) Cardio Equipment Bicycle (Upright) Duration (Minutes) 8 Resistance 0-3 Seat Position 4 Other rocking back and forth, unable to complete a revolution Gym Equipment Shuttle Recovery Unilateral Squats Resistance 25 Shuttle Recovery Platform Stable Reps/Time x10 Bilateral Squats Details 2x10 Resistance 50 Shuttle Recovery Platform Stable Therapeutic Exercises Supine Exercises hamstring stretch Reps/Minutes 2x30 SAQ Side bilateral Reps/Minutes 10x quad sets Side bilateral Reps/Minutes 10x Comments towel roll under ankle Standing Exercises standing knee extension Equipment Used L1 TB Reps/Minutes 10x Gait Training Gait Activity Stairs Device Used left rail Distance/Duration 2x 4 steps Treatment Focus reciprocal stepping Comments pt IR RLE while descending Manual Therapy Treatment Soft Tissue Mobilization Scar Body Location along proximal scar quads Mobilization Type Strumming,Sustained Pressure, Trigger Point Release Intensity/Depth gentle Body Position Hooklying PT-OP-R Modalities Start: 10/23/21 08:57 Freq: Status: Active Protocol: Document 11/14/21 10:27 MA (Rec: 11/14/21 11:18 MA [id number]) Hot Pack/Cold Pack Treatment Cold Pack Location right knee Patient Position Hooklying Treatment Duration (minutes) 10 PT-OP-T Assessment and Plan Start: 10/23/21 08:57 Freq: Status: Active Protocol: Document 11/14/21 10:27 MA (Rec: 11/14/21 11:18 MA [id number]) Physical Therapy Assessment Goals Three Impairment Lower extremity functional score 25% Short Term Goal (STG) Improve LEFS to at least 50% as measure of improved knee function STG Duration 11/23/21 Custodial Goal (LTG) Improve LEFS to at least 75% as measure of improved right knee function LTG Duration 12/22/21 Two Impairment antalgic gait, step-to on stairs Short Term Goal (STG) Patient able to ambulate without limp on level surfaces with least restrictive device and ascend and descend stairs safely STG Duration 11/23/21 Evening Anchor Goal (LTG) Patient will be able to ambulate without limp without assistive device for at least short distance community ambulation and be able to ambulate on stairs with alternating pattern without difficulty LTG Duration 2/28/22 One Impairment R knee ROM restrictions 24-84 actively, lacking antigravity knee strength Short Term Goal (STG) Patient to be independent with HEP to address ROM and strength limitations STG Duration 11/23/21 Custodial Goal (LTG) Patient to demonstrate right knee ROM 0-120 and right knee strength of at least 4/5 LTG Duration 12/22/21 Assessment Summary Assessment Sherri's R knee AROM was 4-114 degrees and PROM 3-117 degrees . When on leg press machine and during stairs, pt tends to IR R hip, especially when descending stairs. Worked on correcting RLE positioning on stairs with pt improving when ascending 6 stairs but still has difficulty when descending . Will continue working on descending on 4 stairs next session. Physical Therapy Plan Frequency and Duration Frequency of Treatment 2x/Week Duration of Treatment 8 weeks Plan of Care Start Date 10/23/21 Plan of Care End Date 12/22/21 Therapeutic Interventions Therapeutic Interventions Aquatic Therapy Modalities Cold Pack/Ice Massage,Electric Stimulation,Hot Packs Next Visit Focus/Plan Next Note Type Treatment Note Next Visit Plan Continue TKA rehab. Try 4 stairs watching for RLE IR when descending. Prone knee extension stretch. Contract/ relax technique to inc knee flex.
--- NOTE | 2021-11-18 12:31 | PT.OTN ---
Current Diagnoses Unilateral primary osteoarthritis, right knee (11/18/21) Physical Therapy Treatment Note PT-OP-A Visit Information Start: 10/23/21 08:57 Freq: Status: Active Protocol: Document 11/18/21 09:50 [facility] (Rec: 11/18/21 10:31 [facility] [id number]) Out-Patient Physical Therapy Visit Information Visit Information Visit Type Treatment Note Visit Start Time 09:45 Visit Stop Time 10:40 Total Visit Minutes 55 Visit Number 7 PT-OP-B Current Condition Start: 10/23/21 08:57 Freq: Status: Active Protocol: Document 10/23/21 09:50 [facility] (Rec: 10/23/21 11:09 [facility] [id number]) Current Condition History of Current Condition Onset Date 10/13/21 Current Complaints right knee pain and gait dysfunction History of Current Condition 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 Referred to PT for rehab s/p right TKA. Has walker, cane, and walking sticks, cane, but comes to PT with no device, limping moderately. Follow- up with PA next week. Minimal exercises since going home. Wearing FÁTIMA hose. has mild dementia so patient does more around the home. Prior to severe pain used to walk 2 miles per day, prior to Covid was member of hiking group. Treatment Goals Patient/Caregiver Goals Be able to walk on all surfaces without pain. Has 14 stairs at home railing on one side. 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 Primary Therapy/Recovery caregiver for with dementia PT-OP-C Subjective Start: 10/23/21 08:57 Freq: Status: Active Protocol: Document 11/18/21 09:50 [facility] (Rec: 11/18/21 10:31 [facility] [id number]) OP-PT Subjective Patient Comments Patient Comments Doing HEP in am and again in afternoon, then some before bed. Thinks she sees at end of November. Not able to get full motion yet, can tell right knee isn't straightening as much as her left. PT-OP-F Manual Assessment Start: 10/23/21 08:57 Freq: Status: Active Protocol: Document 10/23/21 09:50 [facility] (Rec: 10/23/21 11:09 [facility] [id number]) Manual Assessments Soft Tissue Assessment Soft Tissue Mobility Assessment extensive brusing right knee and lower leg to ankle. PT-OP-G Mobility & Gait Start: 10/23/21 08:57 Freq: Status: Active Protocol: Document 10/23/21 09:50 [facility] (Rec: 10/23/21 11:09 [facility] [id number]) OP Mobility Evaluation Bed Mobility Rolling indep Supine to and from Sit indep Transfers Sit to Stand indep, min use of right LE PT-OP-J Posture/Palpation/Skin Start: 10/23/21 08:57 Freq: Status: Active Protocol: Document 10/23/21 09:50 [facility] (Rec: 10/23/21 11:09 [facility] [id number]) Palpation Assessment Location right knee Palpation Findings Edema,Muscle Guarding, Tenderness Palpation Details mild warmth right knee compared to left PT-OP-K Range of Motion Start: 10/23/21 08:57 Freq: Status: Active Protocol: Document 10/23/21 09:50 [facility] (Rec: 10/23/21 11:09 [facility] [id number]) Knee Goniometric Range of Motion Knee Right Knee ROM WFL No Flexion Active (degrees) 84 Flexion Passive (degrees) 89 Extension Active (degrees) 24 Extension Passive (degrees) 8 Left Knee ROM WFL Yes Flexion Active (degrees) 120 Extension Active (degrees) 0 PT-OP-M Strength Start: 10/23/21 08:57 Freq: Status: Active Protocol: Document 10/23/21 09:50 [facility] (Rec: 10/23/21 11:09 [facility] [id number]) Knee Strength Knee Manual Muscle Testing Right Flexion (S2) 3- Fair- Extension (L3) 3- Fair- Comments no MMT due to surgery 10/13/21 . Less than antigravity evident Left Flexion (S2) 5 Normal Extension (L3) 5 Normal Ankle/Foot Strength Ankle and Foot Manual Muscle Testing kvng Dorsiflexion (L4) 5 Normal Plantarflexion (S1) 5 Normal PT-OP-Q Treatments Start: 10/23/21 08:57 Freq: Status: Active Protocol: Document 11/18/21 09:50 [facility] (Rec: 11/18/21 10:31 [facility] [id number]) Cardio Equipment Bicycle (Upright) Duration (Minutes) 8 Resistance 0-3 Seat Position 4 Gym Equipment Shuttle Recovery Unilateral Squats Resistance 25 Shuttle Recovery Platform Stable Reps/Time x10 Bilateral Squats Details 2x10 Resistance 50 Shuttle Recovery Platform Stable Therapeutic Exercises Supine Exercises gravity assisted knee flex Equipment Used slider sheet Comments on shuttle leg press machine Prone Exercises knee extension Reps/Minutes 2 min Comments towel roll under distal thigh Sitting Exercises quad set with HS stretch Equipment Used stool under foot Reps/Minutes 5 min Standing Exercises HC stretch Reps/Minutes 2x30 Comments KAYLEE standing knee extension Equipment Used L1 TB Reps/Minutes 10x Gait Training Gait Activity Stairs Device Used left rail Level of Assistance verbal and manual cues, mirror for visual feedback Distance/Duration 4 steps x 4, 6 steps x 4 Treatment Focus reciprocal stepping Comments pt IR RLE while descending 4 and 6 1 Description forward Level of Assistance verbal cues Surface firm Distance/Duration 10'x5 Treatment Focus symmetry, heelstrike, relaxed knee Comments mirror for visual feedback Manual Therapy Treatment Soft Tissue Mobilization Scar Body Location along proximal scar quads Mobilization Type Strumming,Sustained Pressure, Trigger Point Release Intensity/Depth gentle Body Position Hooklying Taping 1 Body Location right knee Treatment Focus edema reduction Type of Tape kinesiotape Skin Inspection intact Comments 2 crossed fan shapes with base toward right groin Self-Care/Home Management Treatment Education Patient Education Home Exercise Program,Pain Management Other Education Increase stretching into knee extension edema management, try aquatic exercise on own as now able to get scheduled in pool yet for aquatic PT. PT-OP-R Modalities Start: 10/23/21 08:57 Freq: Status: Active Protocol: Document 11/18/21 09:50 [facility] (Rec: 11/18/21 12:31 [facility] [id number]) Hot Pack/Cold Pack Treatment Cold Pack Location right knee Patient Position Supine Treatment Duration (minutes) 10 Comments trial initially in full extension; patine only able to tolerate for 2 min. Will continue to increase amount of time in extension with ice as donna. PT-OP-T Assessment and Plan Start: 10/23/21 08:57 Freq: Status: Active Protocol: Document 11/18/21 09:50 [facility] (Rec: 11/18/21 10:31 [facility] [id number]) Physical Therapy Assessment Goals Three Impairment Lower extremity functional score 25% Short Term Goal (STG) Improve LEFS to at least 50% as measure of improved knee function STG Duration 11/23/21 Algorithm Design Engineer Goal (LTG) Improve LEFS to at least 75% as measure of improved right knee function LTG Duration 12/22/21 Two Impairment antalgic gait, step-to on stairs Short Term Goal (STG) Patient able to ambulate without limp on level surfaces with least restrictive device and ascend and descend stairs safely STG Duration 11/23/21 Algorithm Design Engineer Goal (LTG) Patient will be able to ambulate without limp without assistive device for at least short distance community ambulation and be able to ambulate on stairs with alternating pattern without difficulty LTG Duration 12/22/21 One Impairment R knee ROM restrictions 24-84 actively, lacking antigravity knee strength Short Term Goal (STG) Patient to be independent with HEP to address ROM and strength limitations STG Duration 11/23/21 Algorithm Design Engineer Goal (LTG) Patient to demonstrate right knee ROM 0-120 and right knee strength of at least 4/5 LTG Duration 12/22/21 Assessment Summary Assessment Much practice with gait on level and especially stairs with mirror used to show patient malalignment right LE when descending stairs, able to self-correct after repetition though patient c/o pain which appears to be causing this compensation. Trial kinesiotape right knee due to persistent swelling and patient urged to both increased stretching into exension and try aquatic exercise as she has done in the past, stating she noted a decrease in swelling previously when doing aquatic exercise. Right knee AROM 7- 113, PROM 5 to 118 deg today. Physical Therapy Plan Frequency and Duration Frequency of Treatment 2x/Week Duration of Treatment 8 weeks Plan of Care Start Date 10/23/21 Plan of Care End Date 12/22/21 Therapeutic Interventions Therapeutic Interventions Aquatic Therapy,Home Exercise Program,Neuromuscular Re- education,Patient/Caregiver Education,Self-Care/Home Management,Soft Tissue Mobilization,Taping, Therapeutic Activities, Therapeutic Exercises Modalities Cold Pack/Ice Massage,Electric Stimulation,Hot Packs Next Visit Focus/Plan Next Note Type Treatment Note Next Visit Plan Continue TKA rehab. Try 4 stairs watching for RLE IR when descending. Prone knee extension stretch. Contract/ relax technique to inc knee flex. Ice knee in extension
--- NOTE | 2021-11-20 16:09 | PT.OTN ---
Current Diagnoses Unilateral primary osteoarthritis, right knee (11/20/21) Physical Therapy Treatment Note PT-OP-A Visit Information Start: 10/23/21 08:57 Freq: Status: Active Protocol: Document 11/20/21 09:45 [facility] (Rec: 11/20/21 10:32 [facility] [id number]) Out-Patient Physical Therapy Visit Information Visit Information Visit Type Treatment Note Visit Start Time 09:45 Visit Stop Time 10:40 Total Visit Minutes 55 Visit Number 8 PT-OP-B Current Condition Start: 10/23/21 08:57 Freq: Status: Active Protocol: Document 10/23/21 09:50 [facility] (Rec: 10/23/21 11:09 [facility] [id number]) Current Condition History of Current Condition Onset Date 10/13/21 Current Complaints right knee pain and gait dysfunction History of Current Condition 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 Referred to PT for rehab s/p right TKA. Has walker, cane, and walking sticks, cane, but comes to PT with no device, limping moderately. Follow- up with PA next week. Minimal exercises since going home. Wearing FÁTIMA hose. has mild dementia so patient does more around the home. Prior to severe pain used to walk 2 miles per day, prior to Covid was member of hiking group. Treatment Goals Patient/Caregiver Goals Be able to walk on all surfaces without pain. Has 14 stairs at home railing on one side. 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 Primary Therapy/Recovery caregiver for with dementia PT-OP-C Subjective Start: 10/23/21 08:57 Freq: Status: Active Protocol: Document 11/20/21 09:45 [facility] (Rec: 11/20/21 10:32 [facility] [id number]) OP-PT Subjective Patient Comments Patient Comments States she noticed more what we are talking about with her knee going in. Thinks swelling a little less with kinesiotape, and put legs up more yesterday. Is going to the pool tomorrow to do water walking. Trying to lay on her stomach some at home though doesn't stretch as well as on our treatment mats. Sees surgeon 12/02/21 PT-OP-F Manual Assessment Start: 10/23/21 08:57 Freq: Status: Active Protocol: Document 10/23/21 09:50 [facility] (Rec: 10/23/21 11:09 [facility] [id number]) Manual Assessments Soft Tissue Assessment Soft Tissue Mobility Assessment extensive brusing right knee and lower leg to ankle. PT-OP-G Mobility & Gait Start: 10/23/21 08:57 Freq: Status: Active Protocol: Document 10/23/21 09:50 [facility] (Rec: 10/23/21 11:09 [facility] [id number]) OP Mobility Evaluation Bed Mobility Rolling indep Supine to and from Sit indep Transfers Sit to Stand indep, min use of right LE PT-OP-J Posture/Palpation/Skin Start: 10/23/21 08:57 Freq: Status: Active Protocol: Document 10/23/21 09:50 [facility] (Rec: 10/23/21 11:09 [facility] [id number]) Palpation Assessment Location right knee Palpation Findings Edema,Muscle Guarding, Tenderness Palpation Details mild warmth right knee compared to left PT-OP-K Range of Motion Start: 10/23/21 08:57 Freq: Status: Active Protocol: Document 10/23/21 09:50 [facility] (Rec: 10/23/21 11:09 [facility] [id number]) Knee Goniometric Range of Motion Knee Right Knee ROM WFL No Flexion Active (degrees) 84 Flexion Passive (degrees) 89 Extension Active (degrees) 24 Extension Passive (degrees) 8 Left Knee ROM WFL Yes Flexion Active (degrees) 120 Extension Active (degrees) 0 PT-OP-M Strength Start: 10/23/21 08:57 Freq: Status: Active Protocol: Document 10/23/21 09:50 [facility] (Rec: 10/23/21 11:09 [facility] [id number]) Knee Strength Knee Manual Muscle Testing Right Flexion (S2) 3- Fair- Extension (L3) 3- Fair- Comments no MMT due to surgery 10/13/21 . Less than antigravity evident Left Flexion (S2) 5 Normal Extension (L3) 5 Normal Ankle/Foot Strength Ankle and Foot Manual Muscle Testing kvng Dorsiflexion (L4) 5 Normal Plantarflexion (S1) 5 Normal PT-OP-Q Treatments Start: 10/23/21 08:57 Freq: Status: Active Protocol: Document 11/20/21 09:45 [facility] (Rec: 11/20/21 10:32 [facility] [id number]) Cardio Equipment Recumbent Elliptical (Biodex) Duration (Minutes) 4 Resistance 2 Other focus on LE alignment Bicycle (Upright) Duration (Minutes) 5 Resistance 3 Seat Position 4 Gym Equipment Shuttle Recovery Unilateral Squats Resistance 25 Shuttle Recovery Platform Stable Reps/Time x10 Bilateral Squats Details L2 TB distal thighs cues for neutral LE alignment Resistance 50 Shuttle Recovery Platform Stable Reps/Time 2x10 Therapeutic Exercises Supine Exercises gravity assisted knee flex Equipment Used slider sheet Comments on shuttle leg press machine SAQ Side bilateral Reps/Minutes 10x Comments manual assist end range right quad sets Side right Reps/Minutes 10x Comments knee flex in between, push knee into extension with quad set Prone Exercises knee extension Reps/Minutes 2 min Comments towel roll under distal thigh Standing Exercises backward walk Equipment Used parallel bars x 2 Comments emphasis on knee extension knee ext Equipment Used L1 TB Reps/Minutes 10x march Equipment Used parallel bars x 2 Gait Training Gait Activity Stairs Device Used left rail Level of Assistance verbal and manual cues, mirror for visual feedback Distance/Duration 4 steps x 4, 6 steps x 4 Treatment Focus reciprocal stepping Comments pt IR RLE while descending 4 and 6 1 Description forward Level of Assistance verbal cues Surface firm Distance/Duration 10'x5 Treatment Focus symmetry, heelstrike, relaxed knee Comments mirror for visual feedback Manual Therapy Treatment Soft Tissue Mobilization Scar Body Location along proximal scar quads Mobilization Type Strumming,Sustained Pressure, Trigger Point Release Intensity/Depth gentle Body Position Hooklying Self-Care/Home Management Treatment Education Patient Education Home Exercise Program,Pain Management PT-OP-R Modalities Start: 10/23/21 08:57 Freq: Status: Active Protocol: Document 11/20/21 09:45 [facility] (Rec: 11/20/21 10:32 [facility] [id number]) Electric Stimulation Electric Stimulation right knee Duration (Minutes) 10 Intensity 15 Target/Sweep Sweep Patient Position Supine Combined With Heat/Cold Cold Pack Comments knee extended x first 5 min PT-OP-T Assessment and Plan Start: 10/23/21 08:57 Freq: Status: Active Protocol: Document 11/20/21 09:45 [facility] (Rec: 11/20/21 16:05 [facility] [id number]) Physical Therapy Assessment Rehab Potential Rehabilitation Potential Excellent Evaluation Complexity Number of Personal Factors/Comorbidities 1-2 Number of Body Systems Impaired 3 Clinical Presentation at Evaluation Evolving Impairments Impairments Functional Mobility,Gait,Pain, ROM,Strength Goals Three Impairment Lower extremity functional score 25% Short Term Goal (STG) Improve LEFS to at least 50% as measure of improved knee function STG Duration 11/23/21 Section Laborer Goal (LTG) Improve LEFS to at least 75% as measure of improved right knee function LTG Duration 12/22/21 Two Impairment antalgic gait, step-to on stairs Short Term Goal (STG) Patient able to ambulate without limp on level surfaces with least restrictive device and ascend and descend stairs safely STG Duration 11/23/21 Section Laborer Goal (LTG) Patient will be able to ambulate without limp without assistive device for at least short distance community ambulation and be able to ambulate on stairs with alternating pattern without difficulty LTG Duration 12/22/21 One Impairment R knee ROM restrictions 24-84 actively, lacking antigravity knee strength Short Term Goal (STG) Patient to be independent with HEP to address ROM and strength limitations STG Duration 11/23/21 Jail Goal (LTG) Patient to demonstrate right knee ROM 0-120 and right knee strength of at least 4/5 LTG Duration 12/22/21 Assessment Summary Assessment Right knee AROM 7-113, PROM 5 to 120 deg today end of session. Has achieved goal for knee flexion, needs further work on extension. May benefit from anterior tibial glides. Physical Therapy Plan Frequency and Duration Frequency of Treatment 2x/Week Duration of Treatment 8 weeks Plan of Care Start Date 10/23/21 Plan of Care End Date 12/22/21 Therapeutic Interventions Therapeutic Interventions Aquatic Therapy,Home Exercise Program,Neuromuscular Re- education,Patient/Caregiver Education,Self-Care/Home Management,Soft Tissue Mobilization,Taping, Therapeutic Activities, Therapeutic Exercises Modalities Cold Pack/Ice Massage,Electric Stimulation,Hot Packs Next Visit Focus/Plan Next Note Type Treatment Note Next Visit Plan Emphasis on knee extension. Assess response to patient doing aquatic exercises independently. Consider anterior tibial glides, MWM to facilitate knee extension.
--- NOTE | 2021-11-26 13:16 | PT.OTN ---
Current Diagnoses Unilateral primary osteoarthritis, right knee (11/26/21) Physical Therapy Treatment Note PT-OP-A Visit Information Start: 10/23/21 08:57 Freq: Status: Active Protocol: Document 11/26/21 10:24 MA (Rec: 11/26/21 13:16 MA [id number]) Out-Patient Physical Therapy Visit Information Visit Information Visit Type Treatment Note Visit Start Time 10:20 Visit Stop Time 11:05 Total Visit Minutes 45 Visit Number 9 Number of AXMINSTER WEAVER Visits 1 PT-OP-B Current Condition Start: 10/23/21 08:57 Freq: Status: Active Protocol: Document 10/23/21 09:50 SAK (Rec: 10/23/21 11:09 SAK [id number]) Current Condition History of Current Condition Onset Date 10/13/21 Current Complaints right knee pain and gait dysfunction History of Current Condition 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 Referred to PT for rehab s/p right TKA. Has walker, cane, and walking sticks, cane, but comes to PT with no device, limping moderately. Follow- up with PA next week. Minimal exercises since going home. Wearing FÁTIMA hose. has mild dementia so patient does more around the home. Prior to severe pain used to walk 2 miles per day, prior to Covid was member of hiking group. Treatment Goals Patient/Caregiver Goals Be able to walk on all surfaces without pain. Has 14 stairs at home railing on one side. 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 Primary Therapy/Recovery caregiver for with dementia PT-OP-C Subjective Start: 10/23/21 08:57 Freq: Status: Active Protocol: Document 11/26/21 10:24 MA (Rec: 11/26/21 13:16 MA [id number]) OP-PT Subjective Patient Comments Patient Comments Pt feels she overdid it with biking and water walking for 45 minutes last week. She will decrease her time so she doesn't get so wiped out. She reports some skin irritation with taping but felt the tape helped give her support and decrease swelling so she would like to continue. PT-OP-F Manual Assessment Start: 10/23/21 08:57 Freq: Status: Active Protocol: Document 10/23/21 09:50 SAK (Rec: 10/23/21 11:09 [facility] [id number]) Manual Assessments Soft Tissue Assessment Soft Tissue Mobility Assessment extensive brusing right knee and lower leg to ankle. PT-OP-G Mobility & Gait Start: 10/23/21 08:57 Freq: Status: Active Protocol: Document 10/23/21 09:50 SAK (Rec: 10/23/21 11:09 [facility] [id number]) OP Mobility Evaluation Bed Mobility Rolling indep Supine to and from Sit indep Transfers Sit to Stand indep, min use of right LE PT-OP-J Posture/Palpation/Skin Start: 10/23/21 08:57 Freq: Status: Active Protocol: Document 10/23/21 09:50 SAK (Rec: 10/23/21 11:09 [facility] [id number]) Palpation Assessment Location right knee Palpation Findings Edema,Muscle Guarding, Tenderness Palpation Details mild warmth right knee compared to left PT-OP-K Range of Motion Start: 10/23/21 08:57 Freq: Status: Active Protocol: Document 10/23/21 09:50 SAK (Rec: 10/23/21 11:09 [facility] [id number]) Knee Goniometric Range of Motion Knee Right Knee ROM WFL No Flexion Active (degrees) 84 Flexion Passive (degrees) 89 Extension Active (degrees) 24 Extension Passive (degrees) 8 Left Knee ROM WFL Yes Flexion Active (degrees) 120 Extension Active (degrees) 0 PT-OP-M Strength Start: 10/23/21 08:57 Freq: Status: Active Protocol: Document 10/23/21 09:50 SAK (Rec: 10/23/21 11:09 [facility] [id number]) Knee Strength Knee Manual Muscle Testing Right Flexion (S2) 3- Fair- Extension (L3) 3- Fair- Comments no MMT due to surgery 10/13/21 . Less than antigravity evident Left Flexion (S2) 5 Normal Extension (L3) 5 Normal Ankle/Foot Strength Ankle and Foot Manual Muscle Testing kvng Dorsiflexion (L4) 5 Normal Plantarflexion (S1) 5 Normal PT-OP-Q Treatments Start: 10/23/21 08:57 Freq: Status: Active Protocol: Document 11/26/21 10:24 MA (Rec: 11/26/21 13:16 MA [id number]) Cardio Equipment Bicycle (Upright) Duration (Minutes) 6 Resistance 3 Seat Position 4 Therapeutic Exercises Supine Exercises hamstring stretch Equipment Used large towel Reps/Minutes 2x30 quad sets Side right Reps/Minutes 10x Comments knee flex in between, push knee into extension with quad set Standing Exercises backward walk Equipment Used parallel bars x 2 Comments emphasis on knee extension knee ext Equipment Used L1 TB Reps/Minutes 10x Gait Training Gait Activity 1 Description forward Level of Assistance verbal cues Surface firm Distance/Duration 10'x5 Treatment Focus symmetry, heelstrike, relaxed knee Comments mirror for visual feedback Manual Therapy Treatment Soft Tissue Mobilization HS Body Location R HS Mobilization Type Myofascial Release,Rolling Intensity/Depth Moderate Body Position Supine Comments for improving knee ext Taping 1 Body Location right knee Treatment Focus edema reduction Type of Tape kinesiotape Skin Inspection intact Comments 2 crossed fan shape-lower than previous session due to skin breakdown. Disucssed leaving tape on for only 2-3 days and reassessing skin for irritation PT-OP-R Modalities Start: 10/23/21 08:57 Freq: Status: Active Protocol: Document 11/20/21 09:45 SAK (Rec: 11/20/21 10:32 SAK [id number]) Electric Stimulation Electric Stimulation right knee Duration (Minutes) 10 Intensity 15 Target/Sweep Sweep Patient Position Supine Combined With Heat/Cold Cold Pack Comments knee extended x first 5 min PT-OP-T Assessment and Plan Start: 10/23/21 08:57 Freq: Status: Active Protocol: Document 11/26/21 10:24 MA (Rec: 11/26/21 13:16 MA [id number]) Physical Therapy Assessment Goals Three Impairment Lower extremity functional score 25% Short Term Goal (STG) Improve LEFS to at least 50% as measure of improved knee function STG Duration 11/23/21 Custodial Goal (LTG) Improve LEFS to at least 75% as measure of improved right knee function LTG Duration 12/22/21 Two Impairment antalgic gait, step-to on stairs Short Term Goal (STG) Patient able to ambulate without limp on level surfaces with least restrictive device and ascend and descend stairs safely STG Duration 11/23/21 Functional Skills Tutor Goal (LTG) Patient will be able to ambulate without limp without assistive device for at least short distance community ambulation and be able to ambulate on stairs with alternating pattern without difficulty LTG Duration 12/22/21 One Impairment R knee ROM restrictions 24-84 actively, lacking antigravity knee strength Short Term Goal (STG) Patient to be independent with HEP to address ROM and strength limitations STG Duration 11/23/21 Custodial Goal (LTG) Patient to demonstrate right knee ROM 0-120 and right knee strength of at least 4/5 LTG Duration 12/22/21 Assessment Summary Assessment Pt has minor skin breakdown from previous taping but requests taping again. Pt had left tape on for 5 or 6 days . Changed position of tape to not touch where current skin irritation was and requested pt remove after 2-3 days and give her skin a 'rest' from taping for the weekend. Pt's compression stocking does not stay up on her R leg anymore. Told pt she can remove stocking due to no longer giving compression. Sherri's right knee AROM at end of session was 5-115 degrees, and PROM 3-121 degrees. Performed STM to R HS due to tightness felt during extension and educated pt on stretching HS either in supine with towel or with leg extended on second stair. Physical Therapy Plan Frequency and Duration Frequency of Treatment 2x/Week Duration of Treatment 8 weeks Plan of Care Start Date 10/23/21 Plan of Care End Date 12/22/21 Therapeutic Interventions Therapeutic Interventions Aquatic Therapy,Home Exercise Program,Neuromuscular Re- education,Patient/Caregiver Education,Self-Care/Home Management,Soft Tissue Mobilization,Taping, Therapeutic Activities, Therapeutic Exercises Modalities Cold Pack/Ice Massage,Electric Stimulation,Hot Packs Next Visit Focus/Plan Next Note Type Treatment Note Next Visit Plan Emphasis on knee extension. Assess response to patient doing limited aquatic exercises independently. Consider anterior tibial glides, MWM to facilitate knee extension.
--- NOTE | 2021-12-02 10:32 | PT.OPPN ---
Current Diagnoses Unilateral primary osteoarthritis, right knee (12/04/21) Physical Therapy Progress Note PT-OP-A Visit Information Start: 10/23/21 08:57 Freq: Status: Active Protocol: Document 12/02/21 14:32 [facility] (Rec: 12/02/21 15:18 [facility] [id number]) Out-Patient Physical Therapy Visit Information Visit Information Visit Type Treatment Note Visit Start Time 14:30 Visit Stop Time 15:25 Total Visit Minutes 45 Visit Number 10 PT-OP-B Current Condition Start: 10/23/21 08:57 Freq: Status: Active Protocol: Document 10/23/21 09:50 SAK (Rec: 10/23/21 11:09 [facility] [id number]) Current Condition History of Current Condition Onset Date 10/13/21 Current Complaints right knee pain and gait dysfunction History of Current Condition 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 Referred to PT for rehab s/p right TKA. Has walker, cane, and walking sticks, cane, but comes to PT with no device, limping moderately. Follow- up with PA next week. Minimal exercises since going home. Wearing FÁTIMA hose. has mild dementia so patient does more around the home. Prior to severe pain used to walk 2 miles per day, prior to Covid was member of hiking group. Treatment Goals Patient/Caregiver Goals Be able to walk on all surfaces without pain. Has 14 stairs at home railing on one side. 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 Primary Therapy/Recovery caregiver for with dementia PT-OP-C Subjective Start: 10/23/21 08:57 Freq: Status: Active Protocol: Document 12/02/21 14:32 SAK (Rec: 12/02/21 15:18 [facility] [id number]) OP-PT Subjective Patient Comments Patient Comments Saw Dr. Rubio, will see again in 6 weeks. x-ray looks good. Continue with PT. States still doesn't feel she is walking very well. Really liked going to the pool. PT-OP-F Manual Assessment Start: 10/23/21 08:57 Freq: Status: Active Protocol: Document 10/23/21 09:50 SAK (Rec: 10/23/21 11:09 [facility] [id number]) Manual Assessments Soft Tissue Assessment Soft Tissue Mobility Assessment extensive brusing right knee and lower leg to ankle. PT-OP-G Mobility & Gait Start: 10/23/21 08:57 Freq: Status: Active Protocol: Document 10/23/21 09:50 SAK (Rec: 10/23/21 11:09 [facility] [id number]) OP Mobility Evaluation Bed Mobility Rolling indep Supine to and from Sit indep Transfers Sit to Stand indep, min use of right LE PT-OP-J Posture/Palpation/Skin Start: 10/23/21 08:57 Freq: Status: Active Protocol: Document 10/23/21 09:50 SAK (Rec: 10/23/21 11:09 [facility] [id number]) Palpation Assessment Location right knee Palpation Findings Edema,Muscle Guarding, Tenderness Palpation Details mild warmth right knee compared to left PT-OP-K Range of Motion Start: 10/23/21 08:57 Freq: Status: Active Protocol: Document 10/23/21 09:50 SAK (Rec: 10/23/21 11:09 [facility] [id number]) Knee Goniometric Range of Motion Knee Measured in Degrees Right Knee ROM WFL No Flexion Active (degrees) 84 Flexion Passive (degrees) 89 Extension Active (degrees) 24 Extension Passive (degrees) 8 Left Knee ROM WFL Yes Flexion Active (degrees) 120 Extension Active (degrees) 0 PT-OP-M Strength Start: 10/23/21 08:57 Freq: Status: Active Protocol: Document 10/23/21 09:50 SAK (Rec: 10/23/21 11:09 [facility] [id number]) Knee Strength Knee Manual Muscle Testing Right Flexion (S2) 3- Fair- Extension (L3) 3- Fair- Comments no MMT due to surgery 10/13/21 . Less than antigravity evident Left Flexion (S2) 5 Normal Extension (L3) 5 Normal Ankle/Foot Strength Ankle and Foot Manual Muscle Testing kvng Dorsiflexion (L4) 5 Normal Plantarflexion (S1) 5 Normal PT-OP-T Assessment and Plan Start: 10/23/21 08:57 Freq: Status: Active Protocol: Document 12/02/21 14:32 [facility] (Rec: 12/02/21 15:18 [facility] [id number]) Physical Therapy Assessment Goals Three Impairment Lower extremity functional score 25% Short Term Goal (STG) Improve LEFS to at least 50% as measure of improved knee function STG Duration 11/23/21 Trail Maintenance Worker Goal (LTG) Improve LEFS to at least 75% as measure of improved right knee function LTG Duration 12/22/21 Two Impairment antalgic gait, step-to on stairs Short Term Goal (STG) Patient able to ambulate without limp on level surfaces with least restrictive device and ascend and descend stairs safely STG Duration 11/23/21 Longterm Goal (LTG) Patient will be able to ambulate without limp without assistive device for at least short distance community ambulation and be able to ambulate on stairs with alternating pattern without difficulty LTG Duration 12/22/21 One Impairment R knee ROM restrictions 24-84 actively, lacking antigravity knee strength Short Term Goal (STG) Patient to be independent with HEP to address ROM and strength limitations STG Duration 11/23/21 Trail Maintenance Worker Goal (LTG) Patient to demonstrate right knee ROM 0-120 and right knee strength of at least 4/5 LTG Duration 12/22/21 Assessment Summary Assessment Skin healed, able to retape, instructed to remove am so could be retaped. Progressed gait training to uneven surfaces as she wants to return to hiking, added hamstring curls followed by hamstring stretch on Body Solid, and progressed to use of BOSU with lunge. Chair squat with visual feedback of mirror and tactile feedback of theraband for improved LE alignment; added to HEP. AROM 5-117, PROM 3-120. Physical Therapy Plan Frequency and Duration Frequency of Treatment 2x/Week Duration of Treatment 8 weeks Plan of Care Start Date 10/23/21 Plan of Care End Date 12/22/21 Therapeutic Interventions Therapeutic Interventions Aquatic Therapy,Home Exercise Program,Neuromuscular Re- education,Patient/Caregiver Education,Self-Care/Home Management,Soft Tissue Mobilization,Taping, Therapeutic Activities, Therapeutic Exercises Modalities Cold Pack/Ice Massage,Electric Stimulation,Hot Packs Next Visit Focus/Plan Next Note Type Treatment Note Next Visit Plan Continue TKA rehab, emphasis on extension, gait training on multiple surfaces, stress neutral LE alignment. Add Shuttle balance with use of mirror.
--- NOTE | 2021-12-02 17:57 | PT.OTN ---
Current Diagnoses Unilateral primary osteoarthritis, right knee (12/02/21) Physical Therapy Treatment Note PT-OP-A Visit Information Start: 10/23/21 08:57 Freq: Status: Active Protocol: Document 12/02/21 14:32 [facility] (Rec: 12/02/21 15:18 [facility] [id number]) Out-Patient Physical Therapy Visit Information Visit Information Visit Type Treatment Note Visit Start Time 14:30 Visit Stop Time 15:25 Total Visit Minutes 45 Visit Number 10 PT-OP-B Current Condition Start: 10/23/21 08:57 Freq: Status: Active Protocol: Document 10/23/21 09:50 [facility] (Rec: 10/23/21 11:09 [facility] [id number]) Current Condition History of Current Condition Onset Date 10/13/21 Current Complaints right knee pain and gait dysfunction History of Current Condition 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 Referred to PT for rehab s/p right TKA. Has walker, cane, and walking sticks, cane, but comes to PT with no device, limping moderately. Follow- up with PA next week. Minimal exercises since going home. Wearing FÁTIMA hose. has mild dementia so patient does more around the home. Prior to severe pain used to walk 2 miles per day, prior to Covid was member of hiking group. Treatment Goals Patient/Caregiver Goals Be able to walk on all surfaces without pain. Has 14 stairs at home railing on one side. 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 Primary Therapy/Recovery caregiver for with dementia PT-OP-C Subjective Start: 10/23/21 08:57 Freq: Status: Active Protocol: Document 12/02/21 14:32 [facility] (Rec: 12/02/21 15:18 [facility] [id number]) OP-PT Subjective Patient Comments Patient Comments Saw Dr. Rubio, will see again in 6 weeks. x-ray looks good. Continue with PT. States still doesn't feel she is walking very well. Really liked going to the pool. PT-OP-F Manual Assessment Start: 10/23/21 08:57 Freq: Status: Active Protocol: Document 10/23/21 09:50 [facility] (Rec: 10/23/21 11:09 [facility] [id number]) Manual Assessments Soft Tissue Assessment Soft Tissue Mobility Assessment extensive brusing right knee and lower leg to ankle. PT-OP-G Mobility & Gait Start: 10/23/21 08:57 Freq: Status: Active Protocol: Document 10/23/21 09:50 [facility] (Rec: 10/23/21 11:09 [facility] [id number]) OP Mobility Evaluation Bed Mobility Rolling indep Supine to and from Sit indep Transfers Sit to Stand indep, min use of right LE PT-OP-J Posture/Palpation/Skin Start: 10/23/21 08:57 Freq: Status: Active Protocol: Document 10/23/21 09:50 [facility] (Rec: 10/23/21 11:09 [facility] [id number]) Palpation Assessment Location right knee Palpation Findings Edema,Muscle Guarding, Tenderness Palpation Details mild warmth right knee compared to left PT-OP-K Range of Motion Start: 10/23/21 08:57 Freq: Status: Active Protocol: Document 10/23/21 09:50 [facility] (Rec: 10/23/21 11:09 [facility] [id number]) Knee Goniometric Range of Motion Knee Right Knee ROM WFL No Flexion Active (degrees) 84 Flexion Passive (degrees) 89 Extension Active (degrees) 24 Extension Passive (degrees) 8 Left Knee ROM WFL Yes Flexion Active (degrees) 120 Extension Active (degrees) 0 PT-OP-M Strength Start: 10/23/21 08:57 Freq: Status: Active Protocol: Document 10/23/21 09:50 [facility] (Rec: 10/23/21 11:09 [facility] [id number]) Knee Strength Knee Manual Muscle Testing Right Flexion (S2) 3- Fair- Extension (L3) 3- Fair- Comments no MMT due to surgery 10/13/21 . Less than antigravity evident Left Flexion (S2) 5 Normal Extension (L3) 5 Normal Ankle/Foot Strength Ankle and Foot Manual Muscle Testing kvng Dorsiflexion (L4) 5 Normal Plantarflexion (S1) 5 Normal PT-OP-Q Treatments Start: 10/23/21 08:57 Freq: Status: Active Protocol: Document 12/02/21 14:32 [facility] (Rec: 12/02/21 15:18 [facility] [id number]) Cardio Equipment Bicycle (Upright) Duration (Minutes) 8 Resistance 3 Seat Position 4 Gym Equipment Cable Column (Body Solid) hamstring curl Details end-range stretch into extension after each set Resistance 30 Reps/Time 10x2 Therapeutic Exercises Supine Exercises hamstring stretch Equipment Used large towel Reps/Minutes 2x30 quad sets Side bilateral Equipment Used towel roll under right ankle Reps/Minutes 10x Comments knee flex in between, push knee into extension with quad set Standing Exercises chair squat Equipment Used L2 TB distal thighs, mirror for visual feedback Reps/Minutes 12x Comments cues for neutral LE's knee ext Equipment Used L2 TB Reps/Minutes 10x stair lunge Standing Exercise Name lunge and straight leg HS stretch Equipment Used BOSU Reps/Minutes 6x Other Exercises Self-STM Comments reminded of vitamin E oil and selfmassage to scar Gait Training Gait Activity uneven surface Device Used none Level of Assistance CGA, cues Distance/Duration 4 min Treatment Focus safety Comments yoga mat (1 and 2 layer), 4 box, hurdles, blue foam Manual Therapy Treatment Soft Tissue Mobilization HS Body Location R HS Mobilization Type Myofascial Release,Rolling Intensity/Depth Moderate Body Position Supine Comments for improving knee ext Scar Mobilization Type Instrument Assisted Intensity/Depth Moderate Comments suction tool small then medium Taping 1 Body Location right knee Treatment Focus edema reduction Type of Tape kinesiotape Skin Inspection intact Comments 2 crossed fan shape-lower than previous session due to skin breakdown. Disucssed leaving tape on for only 2-3 days and reassessing skin for irritation PT-OP-R Modalities Start: 10/23/21 08:57 Freq: Status: Active Protocol: Document 12/02/21 14:32 [facility] (Rec: 12/02/21 17:57 [facility] [id number]) Hot Pack/Cold Pack Treatment Cold Pack Location right knee Patient Position Supine Treatment Duration (minutes) 10 Comments in ext for 5 min, then supported on bolster 5 min PT-OP-T Assessment and Plan Start: 10/23/21 08:57 Freq: Status: Active Protocol: Document 12/02/21 14:32 [facility] (Rec: 12/02/21 15:18 [facility] [id number]) Physical Therapy Assessment Goals Three Impairment Lower extremity functional score 25% Short Term Goal (STG) Improve LEFS to at least 50% as measure of improved knee function STG Duration 11/23/21 Assisted Goal (LTG) Improve LEFS to at least 75% as measure of improved right knee function LTG Duration 12/22/21 Two Impairment antalgic gait, step-to on stairs Short Term Goal (STG) Patient able to ambulate without limp on level surfaces with least restrictive device and ascend and descend stairs safely STG Duration 11/23/21 Assisted Goal (LTG) Patient will be able to ambulate without limp without assistive device for at least short distance community ambulation and be able to ambulate on stairs with alternating pattern without difficulty LTG Duration 12/22/21 One Impairment R knee ROM restrictions 24-84 actively, lacking antigravity knee strength Short Term Goal (STG) Patient to be independent with HEP to address ROM and strength limitations STG Duration 11/23/21 Painter Decorator Goal (LTG) Patient to demonstrate right knee ROM 0-120 and right knee strength of at least 4/5 LTG Duration 12/22/21 Assessment Summary Assessment Skin healed, able to retape, instructed to remove am so could be retaped. Progressed gait training to uneven surfaces as she wants to return to hiking, added hamstring curls followed by hamstring stretch on Body Solid, and progressed to use of BOSU with lunge. Chair squat with visual feedback of mirror and tactile feedback of theraband for improved LE alignment; added to HEP. AROM 5-117, PROM 3-120. Physical Therapy Plan Frequency and Duration Frequency of Treatment 2x/Week Duration of Treatment 8 weeks Plan of Care Start Date 10/23/21 Plan of Care End Date 12/22/21 Therapeutic Interventions Therapeutic Interventions Aquatic Therapy,Home Exercise Program,Neuromuscular Re- education,Patient/Caregiver Education,Self-Care/Home Management,Soft Tissue Mobilization,Taping, Therapeutic Activities, Therapeutic Exercises Modalities Cold Pack/Ice Massage,Electric Stimulation,Hot Packs Next Visit Focus/Plan Next Note Type Treatment Note Next Visit Plan Continue TKA rehab, emphasis on extension, gait training on multiple surfaces, stress neutral LE alignment. Add Shuttle balance with use of mirror.
--- NOTE | 2021-12-04 11:35 | PT.OTN ---
Current Diagnoses Unilateral primary osteoarthritis, right knee (12/04/21) Physical Therapy Treatment Note PT-OP-A Visit Information Start: 10/23/21 08:57 Freq: Status: Active Protocol: Document 12/04/21 10:33 [facility] (Rec: 12/04/21 11:30 [facility] [id number]) Out-Patient Physical Therapy Visit Information Visit Information Visit Type Treatment Note Visit Start Time 10:33 Visit Number 11 Evaluation Information Evaluation Date 12/04/21 PT-OP-B Current Condition Start: 10/23/21 08:57 Freq: Status: Active Protocol: Document 10/23/21 09:50 [facility] (Rec: 10/23/21 11:09 [facility] [id number]) Current Condition History of Current Condition Onset Date 10/13/21 Current Complaints right knee pain and gait dysfunction History of Current Condition 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 Referred to PT for rehab s/p right TKA. Has walker, cane, and walking sticks, cane, but comes to PT with no device, limping moderately. Follow- up with PA next week. Minimal exercises since going home. Wearing FÁTIMA hose. has mild dementia so patient does more around the home. Prior to severe pain used to walk 2 miles per day, prior to Covid was member of hiking group. Treatment Goals Patient/Caregiver Goals Be able to walk on all surfaces without pain. Has 14 stairs at home railing on one side. 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 Primary Therapy/Recovery caregiver for with dementia PT-OP-C Subjective Start: 10/23/21 08:57 Freq: Status: Active Protocol: Document 12/04/21 10:33 [facility] (Rec: 12/04/21 11:30 [facility] [id number]) OP-PT Subjective Patient Comments Patient Comments No new c/o. found her vitamin E. States she has a treadmill at home but hasn't used in a long time. Took kinesiotape off this am before shower, skin doing ok. PT-OP-F Manual Assessment Start: 10/23/21 08:57 Freq: Status: Active Protocol: Document 10/23/21 09:50 [facility] (Rec: 10/23/21 11:09 [facility] [id number]) Manual Assessments Soft Tissue Assessment Soft Tissue Mobility Assessment extensive brusing right knee and lower leg to ankle. PT-OP-G Mobility & Gait Start: 10/23/21 08:57 Freq: Status: Active Protocol: Document 10/23/21 09:50 [facility] (Rec: 10/23/21 11:09 [facility] [id number]) OP Mobility Evaluation Bed Mobility Rolling indep Supine to and from Sit indep Transfers Sit to Stand indep, min use of right LE PT-OP-J Posture/Palpation/Skin Start: 10/23/21 08:57 Freq: Status: Active Protocol: Document 10/23/21 09:50 [facility] (Rec: 10/23/21 11:09 [facility] [id number]) Palpation Assessment Location right knee Palpation Findings Edema,Muscle Guarding, Tenderness Palpation Details mild warmth right knee compared to left PT-OP-K Range of Motion Start: 10/23/21 08:57 Freq: Status: Active Protocol: Document 10/23/21 09:50 [facility] (Rec: 10/23/21 11:09 [facility] [id number]) Knee Goniometric Range of Motion Knee Right Knee ROM WFL No Flexion Active (degrees) 84 Flexion Passive (degrees) 89 Extension Active (degrees) 24 Extension Passive (degrees) 8 Left Knee ROM WFL Yes Flexion Active (degrees) 120 Extension Active (degrees) 0 PT-OP-M Strength Start: 10/23/21 08:57 Freq: Status: Active Protocol: Document 10/23/21 09:50 [facility] (Rec: 10/23/21 11:09 [facility] [id number]) Knee Strength Knee Manual Muscle Testing Right Flexion (S2) 3- Fair- Extension (L3) 3- Fair- Comments no MMT due to surgery 10/13/21 . Less than antigravity evident Left Flexion (S2) 5 Normal Extension (L3) 5 Normal Ankle/Foot Strength Ankle and Foot Manual Muscle Testing kvng Dorsiflexion (L4) 5 Normal Plantarflexion (S1) 5 Normal PT-OP-Q Treatments Start: 10/23/21 08:57 Freq: Status: Active Protocol: Document 12/04/21 10:33 [facility] (Rec: 12/04/21 11:30 [facility] [id number]) Cardio Equipment Treadmill Duration (Minutes) 8 Speed 1.4 Incline 0 Other cues for full knee extension right, equal step length Gym Equipment Shuttle Balance chains red Details balance and weight shift fwd/ bck, side to side Reps/Duration 5 min Therapeutic Exercises Supine Exercises SAQ Side bilateral Reps/Minutes 10x Comments manual assist end range right Prone Exercises HS curl Resistance 1# ankle weight Reps/Minutes 10x2 knee extension Prone Exercise Name passive stretch, then active extension x 5 Reps/Minutes 5 min Standing Exercises chair squat Equipment Used L2 TB distal thighs, mirror for visual feedback Reps/Minutes 12x Comments cues for neutral LE's Gait Training Gait Activity uneven surface Device Used none Level of Assistance CGA, cues Distance/Duration 4 min Treatment Focus safety Comments 4 box, hurdles, different density foam pads Manual Therapy Treatment Soft Tissue Mobilization HS Body Location R HS Mobilization Type Myofascial Release,Rolling Intensity/Depth Moderate Body Position Prone Comments for improving knee ext Scar Mobilization Type Instrument Assisted Intensity/Depth Moderate Comments suction tool small then medium Taping 1 Body Location right knee Treatment Focus edema reduction Type of Tape kinesiotape Skin Inspection intact Comments 2 crossed fan shape-lower than previous session due to skin breakdown. Disucssed leaving tape on for only 2-3 days and reassessing skin for irritation PT-OP-R Modalities Start: 10/23/21 08:57 Freq: Status: Active Protocol: Document 12/04/21 10:33 [facility] (Rec: 12/04/21 11:30 [facility] [id number]) Electric Stimulation Electric Stimulation right knee Duration (Minutes) 10 Intensity 15 Target/Sweep Sweep Patient Position Supine Combined With Heat/Cold Cold Pack Comments knee extended x first 5 min PT-OP-T Assessment and Plan Start: 10/23/21 08:57 Freq: Status: Active Protocol: Document 12/04/21 10:33 [facility] (Rec: 12/04/21 11:30 [facility] [id number]) Physical Therapy Assessment Goals Three Impairment Lower extremity functional score 25% Short Term Goal (STG) Improve LEFS to at least 50% as measure of improved knee function STG Duration 11/23/21 Custodial Goal (LTG) Improve LEFS to at least 75% as measure of improved right knee function LTG Duration 12/22/21 Two Impairment antalgic gait, step-to on stairs Short Term Goal (STG) Patient able to ambulate without limp on level surfaces with least restrictive device and ascend and descend stairs safely STG Duration 11/23/21 Popcorn Machine Operator Goal (LTG) Patient will be able to ambulate without limp without assistive device for at least short distance community ambulation and be able to ambulate on stairs with alternating pattern without difficulty LTG Duration 12/22/21 One Impairment R knee ROM restrictions 24-84 actively, lacking antigravity knee strength Short Term Goal (STG) Patient to be independent with HEP to address ROM and strength limitations STG Duration 11/23/21 Popcorn Machine Operator Goal (LTG) Patient to demonstrate right knee ROM 0-120 and right knee strength of at least 4/5 LTG Duration 12/22/21 Assessment Summary Assessment Good tolerance for treadmill; has at home so will now do at home with focus on knee extension. Improved form with sit to stand/squats with decreased addiction and IR right LE. Improved knee extension to 2 with longer prone extension stretch; encouraged low load long duration at home. Physical Therapy Plan Frequency and Duration Frequency of Treatment 2x/Week Duration of Treatment 8 weeks Plan of Care Start Date 10/23/21 Plan of Care End Date 12/22/21 Therapeutic Interventions Therapeutic Interventions Aquatic Therapy,Home Exercise Program,Neuromuscular Re- education,Patient/Caregiver Education,Self-Care/Home Management,Soft Tissue Mobilization,Taping, Therapeutic Activities, Therapeutic Exercises Modalities Cold Pack/Ice Massage,Electric Stimulation,Hot Packs Next Visit Focus/Plan Next Note Type Treatment Note Next Visit Plan Continue TKA rehab, emphasis on extension, gait training on multiple surfaces, stress neutral LE alignment.
--- NOTE | 2021-12-08 17:36 | PT.OTN ---
Current Diagnoses Unilateral primary osteoarthritis, right knee (12/08/21) Physical Therapy Treatment Note PT-OP-A Visit Information Start: 10/23/21 08:57 Freq: Status: Active Protocol: Document 12/08/21 13:44 MA (Rec: 12/08/21 14:32 MA [id number]) Out-Patient Physical Therapy Visit Information Visit Information Visit Type Treatment Note Visit Start Time 13:45 Visit Stop Time 14:25 Total Visit Minutes 55 Visit Number 12 PT-OP-B Current Condition Start: 10/23/21 08:57 Freq: Status: Active Protocol: Document 10/23/21 09:50 SAK (Rec: 10/23/21 11:09 SAK [id number]) Current Condition History of Current Condition Onset Date 10/13/21 Current Complaints right knee pain and gait dysfunction History of Current Condition 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 Referred to PT for rehab s/p right TKA. Has walker, cane, and walking sticks, cane, but comes to PT with no device, limping moderately. Follow- up with PA next week. Minimal exercises since going home. Wearing FÁTIMA hose. has mild dementia so patient does more around the home. Prior to severe pain used to walk 2 miles per day, prior to Covid was member of hiking group. Treatment Goals Patient/Caregiver Goals Be able to walk on all surfaces without pain. Has 14 stairs at home railing on one side. 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 Primary Therapy/Recovery caregiver for with dementia PT-OP-C Subjective Start: 10/23/21 08:57 Freq: Status: Active Protocol: Document 12/08/21 13:44 MA (Rec: 12/08/21 14:32 MA [id number]) OP-PT Subjective Patient Comments Patient Comments Pt had her eyes dialated today and feels her balance is a little off because of it. PT-OP-F Manual Assessment Start: 10/23/21 08:57 Freq: Status: Active Protocol: Document 10/23/21 09:50 SAK (Rec: 10/23/21 11:09 [facility] [id number]) Manual Assessments Soft Tissue Assessment Soft Tissue Mobility Assessment extensive brusing right knee and lower leg to ankle. PT-OP-G Mobility & Gait Start: 10/23/21 08:57 Freq: Status: Active Protocol: Document 10/23/21 09:50 SAK (Rec: 10/23/21 11:09 [facility] [id number]) OP Mobility Evaluation Bed Mobility Rolling indep Supine to and from Sit indep Transfers Sit to Stand indep, min use of right LE PT-OP-J Posture/Palpation/Skin Start: 10/23/21 08:57 Freq: Status: Active Protocol: Document 10/23/21 09:50 SAK (Rec: 10/23/21 11:09 [facility] [id number]) Palpation Assessment Location right knee Palpation Findings Edema,Muscle Guarding, Tenderness Palpation Details mild warmth right knee compared to left PT-OP-K Range of Motion Start: 10/23/21 08:57 Freq: Status: Active Protocol: Document 10/23/21 09:50 SAK (Rec: 10/23/21 11:09 [facility] [id number]) Knee Goniometric Range of Motion Knee Right Knee ROM WFL No Flexion Active (degrees) 84 Flexion Passive (degrees) 89 Extension Active (degrees) 24 Extension Passive (degrees) 8 Left Knee ROM WFL Yes Flexion Active (degrees) 120 Extension Active (degrees) 0 PT-OP-M Strength Start: 10/23/21 08:57 Freq: Status: Active Protocol: Document 10/23/21 09:50 [facility] (Rec: 10/23/21 11:09 [facility] [id number]) Knee Strength Knee Manual Muscle Testing Right Flexion (S2) 3- Fair- Extension (L3) 3- Fair- Comments no MMT due to surgery 10/13/21 . Less than antigravity evident Left Flexion (S2) 5 Normal Extension (L3) 5 Normal Ankle/Foot Strength Ankle and Foot Manual Muscle Testing kvng Dorsiflexion (L4) 5 Normal Plantarflexion (S1) 5 Normal PT-OP-Q Treatments Start: 10/23/21 08:57 Freq: Status: Active Protocol: Document 12/08/21 13:44 MA (Rec: 12/08/21 14:32 MA [id number]) Cardio Equipment Recumbent Elliptical (Biodex) Duration (Minutes) 6 Resistance 7 Other focus on LE alignment and knee ext Gym Equipment Shuttle Balance chains red Details balance and weight shift fwd/ bck, side to side Reps/Duration 5 min Therapeutic Exercises Prone Exercises knee extension Prone Exercise Name passive stretch, then active extension x 5 Reps/Minutes 5 min Gait Training Gait Activity uneven surface Device Used none Level of Assistance CGA, cues Distance/Duration 4 min Treatment Focus safety Comments hurdles, different density foam pads Manual Therapy Treatment Soft Tissue Mobilization HS Body Location R HS Mobilization Type Myofascial Release,Rolling Intensity/Depth Moderate Body Position Prone Comments for improving knee ext Scar Body Location R Mobilization Type Instrument Assisted Intensity/Depth Moderate quads Mobilization Type Strumming,Sustained Pressure, Trigger Point Release Intensity/Depth gentle Body Position Hooklying PT-OP-R Modalities Start: 10/23/21 08:57 Freq: Status: Active Protocol: Document 12/08/21 13:44 MA (Rec: 12/08/21 14:32 MA [id number]) Hot Pack/Cold Pack Treatment Cold Pack Location right knee Patient Position Hooklying Treatment Duration (minutes) 10 PT-OP-T Assessment and Plan Start: 10/23/21 08:57 Freq: Status: Active Protocol: Document 12/08/21 13:44 MA (Rec: 12/08/21 14:32 MA [id number]) Physical Therapy Assessment Goals Three Impairment Lower extremity functional score 25% Short Term Goal (STG) Improve LEFS to at least 50% as measure of improved knee function STG Duration 11/23/21 Nursing Home Goal (LTG) Improve LEFS to at least 75% as measure of improved right knee function LTG Duration 12/22/21 Two Impairment antalgic gait, step-to on stairs Short Term Goal (STG) Patient able to ambulate without limp on level surfaces with least restrictive device and ascend and descend stairs safely STG Duration 11/23/21 Metal Neutralizer Goal (LTG) Patient will be able to ambulate without limp without assistive device for at least short distance community ambulation and be able to ambulate on stairs with alternating pattern without difficulty LTG Duration 12/22/21 One Impairment R knee ROM restrictions 24-84 actively, lacking antigravity knee strength Short Term Goal (STG) Patient to be independent with HEP to address ROM and strength limitations STG Duration 11/23/21 Nursing Home Goal (LTG) Patient to demonstrate right knee ROM 0-120 and right knee strength of at least 4/5 LTG Duration 12/22/21 Assessment Summary Assessment Did not reassess treadmill today since pt had eyes dialated and did not feel like it would be safe. She will perform at home tomorrow and focus on her knee extension while walking on treadmill. Pt requires cues for neutral LE alignment during recumbant stepping. PROM R knee 3-123 degrees , AROM 5-118. Sherri is challenged by balance activities especially when stepping over uribe onto uneven surfaces. She has increased swelling this session so encouraged pt to continue with icing at home and wearing compression hoes. Unable to tape pt's knee for swelling this session due to tape causing a rash-like brusing pattern going up R quad and lateral knee. Physical Therapy Plan Frequency and Duration Frequency of Treatment 2x/Week Duration of Treatment 8 weeks Plan of Care Start Date 10/23/21 Plan of Care End Date 12/22/21 Therapeutic Interventions Therapeutic Interventions Aquatic Therapy,Home Exercise Program,Neuromuscular Re- education,Patient/Caregiver Education,Self-Care/Home Management,Soft Tissue Mobilization,Taping, Therapeutic Activities, Therapeutic Exercises Modalities Cold Pack/Ice Massage,Electric Stimulation,Hot Packs Next Visit Focus/Plan Next Note Type Treatment Note Next Visit Plan Add more appts. Continue TKA rehab, emphasis on extension, gait training on multiple surfaces, stress neutral LE alignment. Assess R knee swelling
--- NOTE | 2021-12-12 11:29 | PT.OTN ---
Current Diagnoses Unilateral primary osteoarthritis, right knee (12/12/21) Physical Therapy Treatment Note PT-OP-A Visit Information Start: 10/23/21 08:57 Freq: Status: Active Protocol: Document 12/12/21 10:34 MA (Rec: 12/12/21 11:16 MA [id number]) Out-Patient Physical Therapy Visit Information Visit Information Visit Type Treatment Note Visit Start Time 10:30 Visit Stop Time 11:10 Total Visit Minutes 40 Visit Number 13 Number of BLOOM CONVEYOR OPERATOR Visits 2 PT-OP-B Current Condition Start: 10/23/21 08:57 Freq: Status: Active Protocol: Document 10/23/21 09:50 SAK (Rec: 10/23/21 11:09 SAK [id number]) Current Condition History of Current Condition Onset Date 10/13/21 Current Complaints right knee pain and gait dysfunction History of Current Condition 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 Referred to PT for rehab s/p right TKA. Has walker, cane, and walking sticks, cane, but comes to PT with no device, limping moderately. Follow- up with PA next week. Minimal exercises since going home. Wearing FÁTIMA hose. has mild dementia so patient does more around the home. Prior to severe pain used to walk 2 miles per day, prior to Covid was member of hiking group. Treatment Goals Patient/Caregiver Goals Be able to walk on all surfaces without pain. Has 14 stairs at home railing on one side. 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 Primary Therapy/Recovery caregiver for with dementia PT-OP-C Subjective Start: 10/23/21 08:57 Freq: Status: Active Protocol: Document 12/12/21 10:34 MA (Rec: 12/12/21 11:16 MA [id number]) OP-PT Subjective Patient Comments Patient Comments Pt brings x-ray report to session. PT-OP-F Manual Assessment Start: 10/23/21 08:57 Freq: Status: Active Protocol: Document 10/23/21 09:50 SAK (Rec: 10/23/21 11:09 [facility] [id number]) Manual Assessments Soft Tissue Assessment Soft Tissue Mobility Assessment extensive brusing right knee and lower leg to ankle. PT-OP-G Mobility & Gait Start: 10/23/21 08:57 Freq: Status: Active Protocol: Document 10/23/21 09:50 SAK (Rec: 10/23/21 11:09 [facility] [id number]) OP Mobility Evaluation Bed Mobility Rolling indep Supine to and from Sit indep Transfers Sit to Stand indep, min use of right LE PT-OP-J Posture/Palpation/Skin Start: 10/23/21 08:57 Freq: Status: Active Protocol: Document 10/23/21 09:50 SAK (Rec: 10/23/21 11:09 [facility] [id number]) Palpation Assessment Location right knee Palpation Findings Edema,Muscle Guarding, Tenderness Palpation Details mild warmth right knee compared to left PT-OP-K Range of Motion Start: 10/23/21 08:57 Freq: Status: Active Protocol: Document 10/23/21 09:50 SAK (Rec: 10/23/21 11:09 [facility] [id number]) Knee Goniometric Range of Motion Knee Right Knee ROM WFL No Flexion Active (degrees) 84 Flexion Passive (degrees) 89 Extension Active (degrees) 24 Extension Passive (degrees) 8 Left Knee ROM WFL Yes Flexion Active (degrees) 120 Extension Active (degrees) 0 PT-OP-M Strength Start: 10/23/21 08:57 Freq: Status: Active Protocol: Document 10/23/21 09:50 SAK (Rec: 10/23/21 11:09 [facility] [id number]) Knee Strength Knee Manual Muscle Testing Right Flexion (S2) 3- Fair- Extension (L3) 3- Fair- Comments no MMT due to surgery 10/13/21 . Less than antigravity evident Left Flexion (S2) 5 Normal Extension (L3) 5 Normal Ankle/Foot Strength Ankle and Foot Manual Muscle Testing kvng Dorsiflexion (L4) 5 Normal Plantarflexion (S1) 5 Normal PT-OP-Q Treatments Start: 10/23/21 08:57 Freq: Status: Active Protocol: Document 12/12/21 10:34 MA (Rec: 12/12/21 11:16 MA [id number]) Therapeutic Exercises Standing Exercises backward walk Equipment Used parallel bars x 2 Comments emphasis on knee extension Gait Training Gait Activity Stairs Device Used left rail Level of Assistance verbal and manual cues, mirror for visual feedback Distance/Duration 4 steps x 4, 6 steps x 4 Treatment Focus reciprocal stepping Comments pt IR RLE while descending 4 and 6 Manual Therapy Treatment Soft Tissue Mobilization HS Body Location R HS/gastrocs Mobilization Type Myofascial Release,Rolling Intensity/Depth Moderate Body Position Prone Comments for improving knee ext quads Mobilization Type Strumming,Sustained Pressure, Trigger Point Release Intensity/Depth gentle Body Position Hooklying PT-OP-R Modalities Start: 10/23/21 08:57 Freq: Status: Active Protocol: Document 12/12/21 10:34 MA (Rec: 12/12/21 11:16 MA [id number]) Hot Pack/Cold Pack Treatment Cold Pack Location right knee Patient Position Hooklying Treatment Duration (minutes) 10 PT-OP-T Assessment and Plan Start: 10/23/21 08:57 Freq: Status: Active Protocol: Document 12/12/21 10:34 MA (Rec: 12/12/21 11:16 MA [id number]) Physical Therapy Assessment Goals Three Impairment Lower extremity functional score 25% Short Term Goal (STG) Improve LEFS to at least 50% as measure of improved knee function STG Duration 11/23/21 Half-Way Goal (LTG) Improve LEFS to at least 75% as measure of improved right knee function LTG Duration 12/22/21 Two Impairment antalgic gait, step-to on stairs Short Term Goal (STG) Patient able to ambulate without limp on level surfaces with least restrictive device and ascend and descend stairs safely STG Duration 11/23/21 Half-Way Goal (LTG) Patient will be able to ambulate without limp without assistive device for at least short distance community ambulation and be able to ambulate on stairs with alternating pattern without difficulty LTG Duration 12/22/21 One Impairment R knee ROM restrictions 24-84 actively, lacking antigravity knee strength Short Term Goal (STG) Patient to be independent with HEP to address ROM and strength limitations STG Duration 11/23/21 Senior Shipping Clerk Goal (LTG) Patient to demonstrate right knee ROM 0-120 and right knee strength of at least 4/5 LTG Duration 12/22/21 Assessment Summary Assessment R knee AROM 3-121; can be passively extended to 0 degrees. Pt is having superior knee pain when descending stairs. Worked on tracking while descending as pt tends to IR RLE as she descends. WIll continue eccentric loading on RLE using 4 steps next session vs 6 steps as pt has no pain on 4 step. Pt's swelling has increased this week, likely due to pt being more active now. She did 30 minutes of walking on treamill and 15 on her bike one day and went for an extended walk on uneven ground yesterday. Pt states she has been going in her hot tub more even though she knows the heat is bad for her knee, but it helps with her back and shoulders. Encouraged pt to ice 2-3x/day to decrease swelling vs her 1x daily now. Physical Therapy Plan Frequency and Duration Frequency of Treatment 2x/Week Duration of Treatment 8 weeks Plan of Care Start Date 10/23/21 Plan of Care End Date 12/22/21 Therapeutic Interventions Therapeutic Interventions Aquatic Therapy,Home Exercise Program,Neuromuscular Re- education,Patient/Caregiver Education,Self-Care/Home Management,Soft Tissue Mobilization,Taping, Therapeutic Activities, Therapeutic Exercises Modalities Cold Pack/Ice Massage,Electric Stimulation,Hot Packs Next Visit Focus/Plan Next Note Type Treatment Note Next Visit Plan Add more appts. Continue TKA rehab, emphasis on extension, gait training on multiple surfaces, stress neutral LE alignment. Assess R knee swelling
--- NOTE | 2021-12-16 17:22 | PT.OTN ---
Current Diagnoses Unilateral primary osteoarthritis, right knee (12/16/21) Physical Therapy Treatment Note PT-OP-A Visit Information Start: 10/23/21 08:57 Freq: Status: Active Protocol: Document 12/16/21 10:43 SAK (Rec: 12/16/21 11:22 SAK [id number]) Out-Patient Physical Therapy Visit Information Visit Information Visit Type Treatment Note Visit Start Time 10:40 Visit Stop Time 11:30 Total Visit Minutes 50 Visit Number 14 Number of MACHINE PACKAGING TECHNICIAN Visits 0 PT-OP-B Current Condition Start: 10/23/21 08:57 Freq: Status: Active Protocol: Document 10/23/21 09:50 SAK (Rec: 10/23/21 11:09 SAK [id number]) Current Condition History of Current Condition Onset Date 10/13/21 Current Complaints right knee pain and gait dysfunction History of Current Condition 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 Referred to PT for rehab s/p right TKA. Has walker, cane, and walking sticks, cane, but comes to PT with no device, limping moderately. Follow- up with PA next week. Minimal exercises since going home. Wearing FÁTIMA hose. has mild dementia so patient does more around the home. Prior to severe pain used to walk 2 miles per day, prior to Covid was member of hiking group. Treatment Goals Patient/Caregiver Goals Be able to walk on all surfaces without pain. Has 14 stairs at home railing on one side. 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 Primary Therapy/Recovery caregiver for with dementia PT-OP-C Subjective Start: 10/23/21 08:57 Freq: Status: Active Protocol: Document 12/16/21 10:43 SAK (Rec: 12/16/21 11:22 SAK [id number]) OP-PT Subjective Patient Comments Patient Comments No new c/o. Has joined the pool to do aquatic exercise. Stairs still difficult but maybe a little better. Has to use the railing. Has been doing self-massage. PT-OP-F Manual Assessment Start: 10/23/21 08:57 Freq: Status: Active Protocol: Document 10/23/21 09:50 SAK (Rec: 10/23/21 11:09 [facility] [id number]) Manual Assessments Soft Tissue Assessment Soft Tissue Mobility Assessment extensive brusing right knee and lower leg to ankle. PT-OP-G Mobility & Gait Start: 10/23/21 08:57 Freq: Status: Active Protocol: Document 10/23/21 09:50 SAK (Rec: 10/23/21 11:09 [facility] [id number]) OP Mobility Evaluation Bed Mobility Rolling indep Supine to and from Sit indep Transfers Sit to Stand indep, min use of right LE PT-OP-J Posture/Palpation/Skin Start: 10/23/21 08:57 Freq: Status: Active Protocol: Document 10/23/21 09:50 SAK (Rec: 10/23/21 11:09 [facility] [id number]) Palpation Assessment Location right knee Palpation Findings Edema,Muscle Guarding, Tenderness Palpation Details mild warmth right knee compared to left PT-OP-K Range of Motion Start: 10/23/21 08:57 Freq: Status: Active Protocol: Document 10/23/21 09:50 SAK (Rec: 10/23/21 11:09 [facility] [id number]) Knee Goniometric Range of Motion Knee Right Knee ROM WFL No Flexion Active (degrees) 84 Flexion Passive (degrees) 89 Extension Active (degrees) 24 Extension Passive (degrees) 8 Left Knee ROM WFL Yes Flexion Active (degrees) 120 Extension Active (degrees) 0 PT-OP-M Strength Start: 10/23/21 08:57 Freq: Status: Active Protocol: Document 10/23/21 09:50 SAK (Rec: 10/23/21 11:09 [facility] [id number]) Knee Strength Knee Manual Muscle Testing Right Flexion (S2) 3- Fair- Extension (L3) 3- Fair- Comments no MMT due to surgery 10/13/21 . Less than antigravity evident Left Flexion (S2) 5 Normal Extension (L3) 5 Normal Ankle/Foot Strength Ankle and Foot Manual Muscle Testing kvng Dorsiflexion (L4) 5 Normal Plantarflexion (S1) 5 Normal PT-OP-Q Treatments Start: 10/23/21 08:57 Freq: Status: Active Protocol: Document 12/16/21 10:43 AMAIRANI (Rec: 12/16/21 11:22 [facility] [id number]) Cardio Equipment Bicycle (Upright) Duration (Minutes) 10 Resistance 3 Seat Position 4 Gym Equipment Shuttle Recovery Unilateral Squats Resistance 25 Shuttle Recovery Platform Stable Reps/Time x10 Bilateral Squats Details L2 TB distal thighs cues for neutral LE alignment Resistance 50 Shuttle Recovery Platform Stable Reps/Time 2x10 Therapeutic Exercises Supine Exercises SAQ Side bilateral Reps/Minutes 10x Comments manual assist end range right with eccentric lowering Prone Exercises HS curl Resistance 1# ankle weight Reps/Minutes 10x2 Standing Exercises standing knee extension Equipment Used L1 TB Reps/Minutes 10x Gait Training Gait Activity Stairs Device Used left rail Level of Assistance verbal and manual cues, mirror for visual feedback Distance/Duration 4 steps x 8 Treatment Focus reciprocal stepping Comments improved alignment with cues especially use of mirror Manual Therapy Treatment Soft Tissue Mobilization HS Body Location R HS/gastrocs Mobilization Type Myofascial Release,Rolling Intensity/Depth Moderate Body Position Prone Comments for improving knee ext quads Mobilization Type Strumming,Sustained Pressure, Trigger Point Release Intensity/Depth gentle Body Position Hooklying PT-OP-R Modalities Start: 10/23/21 08:57 Freq: Status: Active Protocol: Document 12/16/21 10:43 AMAIRANI (Rec: 12/16/21 11:22 [facility] [id number]) Hot Pack/Cold Pack Treatment Cold Pack Location right knee Patient Position Hooklying Treatment Duration (minutes) 10 PT-OP-T Assessment and Plan Start: 10/23/21 08:57 Freq: Status: Active Protocol: Document 12/16/21 10:43 AMAIRANI (Rec: 12/16/21 11:22 [facility] [id number]) Physical Therapy Assessment Rehab Potential Rehabilitation Potential Excellent Impairments Impairments Functional Mobility,Gait,Pain, ROM,Strength Goals Three Impairment Lower extremity functional score 25% Short Term Goal (STG) Improve LEFS to at least 50% as measure of improved knee function STG Duration 11/23/21 Retirement Goal (LTG) Improve LEFS to at least 75% as measure of improved right knee function LTG Duration 12/22/21 Two Impairment antalgic gait, step-to on stairs Short Term Goal (STG) Patient able to ambulate without limp on level surfaces with least restrictive device and ascend and descend stairs safely STG Duration 11/23/21 Tax Map Technician Goal (LTG) Patient will be able to ambulate without limp without assistive device for at least short distance community ambulation and be able to ambulate on stairs with alternating pattern without difficulty LTG Duration 12/22/21 One Impairment R knee ROM restrictions 24-84 actively, lacking antigravity knee strength Short Term Goal (STG) Patient to be independent with HEP to address ROM and strength limitations STG Duration 11/23/21 Tax Map Technician Goal (LTG) Patient to demonstrate right knee ROM 0-120 and right knee strength of at least 4/5 LTG Duration 12/22/21 Progress Towards Goals Progress Towards Goals Progressing Toward Goals Assessment Summary Assessment After manual work, stretching, eccentric lowering from assisted full extension SAQ patient able to achieve full knee extension actively; encouraged focus on comparing sides and achieving full extension. Flexion to 124 today passively, 119 actively. Palpable tightness distal quads medial and lateral, proximal scar; encouraged increased soft tissue work to decrease tightness and facilitate improved function. Verbal, tactile, and visual cues for stair training. Knee swelling improved with new compression stockings. Physical Therapy Plan Frequency and Duration Frequency of Treatment 2x/Week Duration of Treatment 8 weeks Plan of Care Start Date 10/23/21 Plan of Care End Date 12/22/21 Therapeutic Interventions Therapeutic Interventions Aquatic Therapy,Home Exercise Program,Neuromuscular Re- education,Patient/Caregiver Education,Self-Care/Home Management,Soft Tissue Mobilization,Taping, Therapeutic Activities, Therapeutic Exercises Modalities Cold Pack/Ice Massage,Electric Stimulation,Hot Packs Next Visit Focus/Plan Next Note Type Treatment Note Next Visit Plan Continue TKA rehab, further discussion of POC as patient requesting minimal more PT.
--- NOTE | 2021-12-19 15:31 | PT.OTN ---
Current Diagnoses Unilateral primary osteoarthritis, right knee (12/19/21) Physical Therapy Treatment Note PT-OP-A Visit Information Start: 10/23/21 08:57 Freq: Status: Active Protocol: Document 12/19/21 15:01 ANETTE (Rec: 12/19/21 15:31 LJ [id number]) Out-Patient Physical Therapy Visit Information Visit Information Visit Type Aquatic Treatment Note Visit Start Time 12:30 Visit Stop Time 01:15 Total Visit Minutes 45 Visit Number 15 Number of FAN MAIL EDITOR Visits 1 PT-OP-B Current Condition Start: 10/23/21 08:57 Freq: Status: Active Protocol: Document 10/23/21 09:50 SAK (Rec: 10/23/21 11:09 SAK [id number]) Current Condition History of Current Condition Onset Date 10/13/21 Current Complaints right knee pain and gait dysfunction History of Current Condition 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 Referred to PT for rehab s/p right TKA. Has walker, cane, and walking sticks, cane, but comes to PT with no device, limping moderately. Follow- up with PA next week. Minimal exercises since going home. Wearing FÁTIMA hose. has mild dementia so patient does more around the home. Prior to severe pain used to walk 2 miles per day, prior to Covid was member of hiking group. Treatment Goals Patient/Caregiver Goals Be able to walk on all surfaces without pain. Has 14 stairs at home railing on one side. 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 Primary Therapy/Recovery caregiver for with dementia PT-OP-C Subjective Start: 10/23/21 08:57 Freq: Status: Active Protocol: Document 12/19/21 15:01 ANETTE (Rec: 12/19/21 15:31 LJ [id number]) OP-PT Subjective Patient Comments Patient Comments Pt states she is getting knee extension back but is frustrated by the amount of scar tissue in her Rknee. States she has the most difficulty with stairs PT-OP-F Manual Assessment Start: 10/23/21 08:57 Freq: Status: Active Protocol: Document 10/23/21 09:50 SAK (Rec: 10/23/21 11:09 [facility] [id number]) Manual Assessments Soft Tissue Assessment Soft Tissue Mobility Assessment extensive brusing right knee and lower leg to ankle. PT-OP-G Mobility & Gait Start: 10/23/21 08:57 Freq: Status: Active Protocol: Document 10/23/21 09:50 SAK (Rec: 10/23/21 11:09 [facility] [id number]) OP Mobility Evaluation Bed Mobility Rolling indep Supine to and from Sit indep Transfers Sit to Stand indep, min use of right LE PT-OP-J Posture/Palpation/Skin Start: 10/23/21 08:57 Freq: Status: Active Protocol: Document 10/23/21 09:50 SAK (Rec: 10/23/21 11:09 [facility] [id number]) Palpation Assessment Location right knee Palpation Findings Edema,Muscle Guarding, Tenderness Palpation Details mild warmth right knee compared to left PT-OP-K Range of Motion Start: 10/23/21 08:57 Freq: Status: Active Protocol: Document 10/23/21 09:50 SAK (Rec: 10/23/21 11:09 [facility] [id number]) Knee Goniometric Range of Motion Knee Right Knee ROM WFL No Flexion Active (degrees) 84 Flexion Passive (degrees) 89 Extension Active (degrees) 24 Extension Passive (degrees) 8 Left Knee ROM WFL Yes Flexion Active (degrees) 120 Extension Active (degrees) 0 PT-OP-M Strength Start: 10/23/21 08:57 Freq: Status: Active Protocol: Document 10/23/21 09:50 SAK (Rec: 10/23/21 11:09 [facility] [id number]) Knee Strength Knee Manual Muscle Testing Right Flexion (S2) 3- Fair- Extension (L3) 3- Fair- Comments no MMT due to surgery 10/13/21 . Less than antigravity evident Left Flexion (S2) 5 Normal Extension (L3) 5 Normal Ankle/Foot Strength Ankle and Foot Manual Muscle Testing kvng Dorsiflexion (L4) 5 Normal Plantarflexion (S1) 5 Normal PT-OP-Q Treatments Start: 10/23/21 08:57 Freq: Status: Active Protocol: Document 12/16/21 10:43 SAK (Rec: 12/16/21 11:22 SAK [id number]) Cardio Equipment Bicycle (Upright) Duration (Minutes) 10 Resistance 3 Seat Position 4 Gym Equipment Shuttle Recovery Unilateral Squats Resistance 25 Shuttle Recovery Platform Stable Reps/Time x10 Bilateral Squats Details L2 TB distal thighs cues for neutral LE alignment Resistance 50 Shuttle Recovery Platform Stable Reps/Time 2x10 Therapeutic Exercises Supine Exercises SAQ Side bilateral Reps/Minutes 10x Comments manual assist end range right with eccentric lowering Prone Exercises HS curl Resistance 1# ankle weight Reps/Minutes 10x2 Standing Exercises standing knee extension Equipment Used L1 TB Reps/Minutes 10x Gait Training Gait Activity Stairs Device Used left rail Level of Assistance verbal and manual cues, mirror for visual feedback Distance/Duration 4 steps x 8 Treatment Focus reciprocal stepping Comments improved alignment with cues especially use of mirror Manual Therapy Treatment Soft Tissue Mobilization HS Body Location R HS/gastrocs Mobilization Type Myofascial Release,Rolling Intensity/Depth Moderate Body Position Prone Comments for improving knee ext quads Mobilization Type Strumming,Sustained Pressure, Trigger Point Release Intensity/Depth gentle Body Position Hooklying PT-OP-R Modalities Start: 10/23/21 08:57 Freq: Status: Active Protocol: Document 12/16/21 10:43 SAK (Rec: 12/16/21 11:22 SAK [id number]) Hot Pack/Cold Pack Treatment Cold Pack Location right knee Patient Position Hooklying Treatment Duration (minutes) 10 PT-OP-S Aquatic Treatment Start: 10/23/21 08:57 Freq: Status: Active Protocol: Document 12/19/21 15:01 ANETTE (Rec: 12/19/21 15:31 LJ [id number]) Aquatics Treatment Pool Entry/Exit Pool Entry/Exit Method Stairs Water Walking Lunge Walk Water Level Waist Level Walking Equipment sm belt Level of Assistance Verbal Cues December Water Level Chest Level Walking Equipment sm belt Level of Assistance Verbal Cues Sideways Water Level Chest Level Walking Equipment sm belt Level of Assistance Verbal Cues Backwards Water Level Chest Level Walking Equipment sm belt Level of Assistance Verbal Cues Forwards Water Level Chest Level Walking Equipment sm belt Level of Assistance Verbal Cues Lower Extremity Exercises heel, toe Reps/Duration 15x step up/down Water Level Chest Level Equipment 3 lg boxes Reps/Duration 7x f/b, side Comments cues for body positioning and complete knee extension stairs Details up/down stairs Reps/Duration x6 Comments B rails; cues for glute activation and body positioning hip fl/ex; ab/ad Details hh on wall Body Position Standing Water Level Waist Level Equipment box Reps/Duration 15 B HS curl Details standing at wall Water Level Waist Level Reps/Duration 15 B knee fl/ext Details braced at wall Body Position Sitting Water Level Neck Level Reps/Duration 15x B Lower Extremity Stretches TFL Details at wall Body Position Standing Water Level Waist Level Reps/Duration 2 x 45 B HS Details back against wall Body Position Standing Water Level Chest Level Equipment lg noodle Reps/Duration 2 x 45' quads, hip flexors Details at wall Body Position Standing Water Level Chest Level Equipment lg noodle Reps/Duration 2 x 45' B Spinal Exercises pelvic tilt with marching Details at wall Body Position Sitting Water Level Chest Level Reps/Duration 3 x 30' BB pull down Details at wall Body Position Sitting Water Level Chest Level Equipment med BB Reps/Duration 15 fwd, B side PT-OP-T Assessment and Plan Start: 10/23/21 08:57 Freq: Status: Active Protocol: Document 12/19/21 15:01 ANETTE (Rec: 12/19/21 15:31 ANETTE [id number]) Physical Therapy Assessment Rehab Potential Rehabilitation Potential Excellent Evaluation Complexity Number of Personal Factors/Comorbidities 1-2 Number of Body Systems Impaired 3 Clinical Presentation at Evaluation Evolving Impairments Impairments Functional Mobility,Gait,Pain, ROM,Strength Goals Three Impairment Lower extremity functional score 25% Short Term Goal (STG) Improve LEFS to at least 50% as measure of improved knee function STG Duration 11/23/21 Mcfp Goal (LTG) Improve LEFS to at least 75% as measure of improved right knee function LTG Duration 12/22/21 Two Impairment antalgic gait, step-to on stairs Short Term Goal (STG) Patient able to ambulate without limp on level surfaces with least restrictive device and ascend and descend stairs safely STG Duration 11/23/21 Front End Architect Goal (LTG) Patient will be able to ambulate without limp without assistive device for at least short distance community ambulation and be able to ambulate on stairs with alternating pattern without difficulty LTG Duration 12/22/21 One Impairment R knee ROM restrictions 24-84 actively, lacking antigravity knee strength Short Term Goal (STG) Patient to be independent with HEP to address ROM and strength limitations STG Duration 11/23/21 Front End Architect Goal (LTG) Patient to demonstrate right knee ROM 0-120 and right knee strength of at least 4/5 LTG Duration 12/22/21 Progress Towards Goals Progress Towards Goals Progressing Toward Goals Assessment Summary Assessment Pt tolerated exercises well. States she exercises at the pool 1 x week on her own using old exercises given to her several years ago. She required cueing for coordination with walking exercises as well as step ups onto boxes to fully extend knee and stand on single LE rather than using BLE to complete the step. Physical Therapy Plan Frequency and Duration Frequency of Treatment 2x/Week Duration of Treatment 8 weeks Plan of Care Start Date 10/23/21 Plan of Care End Date 12/22/21 Therapeutic Interventions Therapeutic Interventions Aquatic Therapy,Home Exercise Program,Neuromuscular Re- education,Patient/Caregiver Education,Self-Care/Home Management,Soft Tissue Mobilization,Taping, Therapeutic Activities, Therapeutic Exercises Modalities Cold Pack/Ice Massage,Electric Stimulation,Hot Packs Next Visit Focus/Plan Next Note Type Treatment Note Next Visit Plan Progress gait, coordination, strengthening activities per aquatic TKA rehab. Include core strengthening. Give pt HEP for aquatic therapy to exercise on her own.
--- NOTE | 2021-12-22 16:18 | PT.OTN ---
Current Diagnoses Unilateral primary osteoarthritis, right knee (12/22/21) Physical Therapy Treatment Note PT-OP-A Visit Information Start: 10/23/21 08:57 Freq: Status: Active Protocol: Document 12/22/21 15:15 SAK (Rec: 12/22/21 16:18 SAK [id number]) Out-Patient Physical Therapy Visit Information Visit Information Visit Type Treatment Note Visit Start Time 15:15 Visit Stop Time 16:02 Total Visit Minutes 47 Visit Number 16 Number of INTERNATIONAL EXCHANGE COORDINATOR Visits 0 PT-OP-B Current Condition Start: 10/23/21 08:57 Freq: Status: Active Protocol: Document 10/23/21 09:50 SAK (Rec: 10/23/21 11:09 SAK [id number]) Current Condition History of Current Condition Onset Date 10/13/21 Current Complaints right knee pain and gait dysfunction History of Current Condition 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 Referred to PT for rehab s/p right TKA. Has walker, cane, and walking sticks, cane, but comes to PT with no device, limping moderately. Follow- up with PA next week. Minimal exercises since going home. Wearing FÁTIMA hose. has mild dementia so patient does more around the home. Prior to severe pain used to walk 2 miles per day, prior to Covid was member of hiking group. Treatment Goals Patient/Caregiver Goals Be able to walk on all surfaces without pain. Has 14 stairs at home railing on one side. 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 WEnt to gym, used elliptical, used treadmill at home. PT-OP-F Manual Assessment Start: 10/23/21 08:57 Freq: Status: Active Protocol: Document 10/23/21 09:50 SAK (Rec: 10/23/21 11:09 [facility] [id number]) Manual Assessments Soft Tissue Assessment Soft Tissue Mobility Assessment extensive brusing right knee and lower leg to ankle. PT-OP-G Mobility & Gait Start: 10/23/21 08:57 Freq: Status: Active Protocol: Document 10/23/21 09:50 SAK (Rec: 10/23/21 11:09 [facility] [id number]) OP Mobility Evaluation Bed Mobility Rolling indep Supine to and from Sit indep Transfers Sit to Stand indep, min use of right LE PT-OP-J Posture/Palpation/Skin Start: 10/23/21 08:57 Freq: Status: Active Protocol: Document 10/23/21 09:50 SAK (Rec: 10/23/21 11:09 [facility] [id number]) Palpation Assessment Location right knee Palpation Findings Edema,Muscle Guarding, Tenderness Palpation Details mild warmth right knee compared to left PT-OP-K Range of Motion Start: 10/23/21 08:57 Freq: Status: Active Protocol: Document 10/23/21 09:50 SAK (Rec: 10/23/21 11:09 [facility] [id number]) Knee Goniometric Range of Motion Knee Right Knee ROM WFL No Flexion Active (degrees) 84 Flexion Passive (degrees) 89 Extension Active (degrees) 24 Extension Passive (degrees) 8 Left Knee ROM WFL Yes Flexion Active (degrees) 120 Extension Active (degrees) 0 PT-OP-M Strength Start: 10/23/21 08:57 Freq: Status: Active Protocol: Document 10/23/21 09:50 [facility] (Rec: 10/23/21 11:09 [facility] [id number]) Knee Strength Knee Manual Muscle Testing Right Flexion (S2) 3- Fair- Extension (L3) 3- Fair- Comments no MMT due to surgery 10/13/21 . Less than antigravity evident Left Flexion (S2) 5 Normal Extension (L3) 5 Normal Ankle/Foot Strength Ankle and Foot Manual Muscle Testing kvng Dorsiflexion (L4) 5 Normal Plantarflexion (S1) 5 Normal PT-OP-Q Treatments Start: 10/23/21 08:57 Freq: Status: Active Protocol: Document 12/22/21 15:15 SAK (Rec: 12/22/21 16:18 SAK [id number]) Gym Equipment Shuttle Balance chains red Details balance and weight shift fwd/ bck, side to side Reps/Duration 5 min Therapeutic Exercises Supine Exercises SAQ Side bilateral Reps/Minutes 10x Comments manual assist end range right with eccentric lowering quad sets Side bilateral Equipment Used towel roll under right ankle Reps/Minutes 10x Comments knee flex in between, push knee into extension with quad set Prone Exercises HS curl Resistance 1# ankle weight Reps/Minutes 10x2 Sitting Exercises LAQ Side bilateral Reps/Minutes 5x Comments manual assist for full knee ext. Standing Exercises quad stretch Equipment Used chair Reps/Minutes 2x stair lunge Equipment Used BOSU Reps/Minutes 10x Comments min unil UE support Gait Training Gait Activity uneven surface Device Used none Level of Assistance CGA, cues Distance/Duration 4 min Treatment Focus safety Comments hurdles: forward, side; min UE support Stairs Device Used left rail Level of Assistance verbal and manual cues, mirror for visual feedback Distance/Duration 4 steps x 2, 6 steps x 4 Treatment Focus reciprocal stepping, LE alignment PT-OP-R Modalities Start: 10/23/21 08:57 Freq: Status: Active Protocol: Document 12/16/21 10:43 SAK (Rec: 12/16/21 11:22 SAK [id number]) Hot Pack/Cold Pack Treatment Cold Pack Location right knee Patient Position Hooklying Treatment Duration (minutes) 10 PT-OP-S Aquatic Treatment Start: 10/23/21 08:57 Freq: Status: Active Protocol: Document 12/19/21 15:01 ANETTE (Rec: 12/19/21 15:31 [facility] [id number]) Aquatics Treatment Pool Entry/Exit Pool Entry/Exit Method Stairs Water Walking Lunge Walk Water Level Waist Level Walking Equipment sm belt Level of Assistance Verbal Cues December Water Level Chest Level Walking Equipment sm belt Level of Assistance Verbal Cues Sideways Water Level Chest Level Walking Equipment sm belt Level of Assistance Verbal Cues Backwards Water Level Chest Level Walking Equipment sm belt Level of Assistance Verbal Cues Forwards Water Level Chest Level Walking Equipment sm belt Level of Assistance Verbal Cues Lower Extremity Exercises heel, toe Reps/Duration 15x step up/down Water Level Chest Level Equipment 3 lg boxes Reps/Duration 7x f/b, side Comments cues for body positioning and complete knee extension stairs Details up/down stairs Reps/Duration x6 Comments B rails; cues for glute activation and body positioning hip fl/ex; ab/ad Details hh on wall Body Position Standing Water Level Waist Level Equipment box Reps/Duration 15 B HS curl Details standing at wall Water Level Waist Level Reps/Duration 15 B knee fl/ext Details braced at wall Body Position Sitting Water Level Neck Level Reps/Duration 15x B Lower Extremity Stretches TFL Details at wall Body Position Standing Water Level Waist Level Reps/Duration 2 x 45 B HS Details back against wall Body Position Standing Water Level Chest Level Equipment lg noodle Reps/Duration 2 x 45' quads, hip flexors Details at wall Body Position Standing Water Level Chest Level Equipment lg noodle Reps/Duration 2 x 45' B Spinal Exercises pelvic tilt with marching Details at wall Body Position Sitting Water Level Chest Level Reps/Duration 3 x 30' BB pull down Details at wall Body Position Sitting Water Level Chest Level Equipment med BB Reps/Duration 15 fwd, B side PT-OP-T Assessment and Plan Start: 10/23/21 08:57 Freq: Status: Active Protocol: Document 12/22/21 15:15 [facility] (Rec: 12/22/21 16:18 [facility] [id number]) Physical Therapy Assessment Goals Three Impairment Lower extremity functional score 25% Short Term Goal (STG) Improve LEFS to at least 50% as measure of improved knee function STG Duration 11/23/21 [facility] Goal (LTG) Improve LEFS to at least 75% as measure of improved right knee function LTG Duration 12/22/21 Two Impairment antalgic gait, step-to on stairs Short Term Goal (STG) Patient able to ambulate without limp on level surfaces with least restrictive device and ascend and descend stairs safely STG Duration 11/23/21 Market Manager Goal (LTG) Patient will be able to ambulate without limp without assistive device for at least short distance community ambulation and be able to ambulate on stairs with alternating pattern without difficulty LTG Duration 12/22/21 One Impairment R knee ROM restrictions 24-84 actively, lacking antigravity knee strength Short Term Goal (STG) Patient to be independent with HEP to address ROM and strength limitations STG Duration 11/23/21 Market Manager Goal (LTG) Patient to demonstrate right knee ROM 0-120 and right knee strength of at least 4/5 LTG Duration 12/22/21 Progress Towards Goals Progress Towards Goals Progressing Toward Goals Assessment Summary Assessment Patient continues to improve with ROM, strength, and gait. Added quad stretch with chair . Increased time on soft tissue mobilization distal quads. Patient to contact physician regardining one more firm spot that feels questionable regarding soft tissue vs something else. Physical Therapy Plan Frequency and Duration Frequency of Treatment 2x/Week Duration of Treatment 8 weeks Plan of Care Start Date 10/23/21 Plan of Care End Date 12/22/21 Therapeutic Interventions Therapeutic Interventions Aquatic Therapy,Home Exercise Program,Neuromuscular Re- education,Patient/Caregiver Education,Self-Care/Home Management,Soft Tissue Mobilization,Taping, Therapeutic Activities, Therapeutic Exercises Modalities Cold Pack/Ice Massage,Electric Stimulation,Hot Packs Next Visit Focus/Plan Next Note Type Treatment Note Next Visit Plan Continue PT with emphasis on soft tissue mobilization, gait and balance on uneven ground, end-range ROM . Staggered feet on shuttle balance. sport cord for challenged gait .
--- NOTE | 2021-12-24 17:01 | PT.OTN ---
Current Diagnoses Unilateral primary osteoarthritis, right knee (12/24/21) Physical Therapy Treatment Note PT-OP-A Visit Information Start: 10/23/21 08:57 Freq: Status: Active Protocol: Document 12/24/21 16:53 SAK (Rec: 12/24/21 17:01 [facility] [id number]) Out-Patient Physical Therapy Visit Information Visit Information Visit Type Treatment Note Visit Start Time 10:15 Visit Stop Time 11:00 Total Visit Minutes 45 Visit Number 17 Evaluation Information Evaluation Date 12/04/21 PT-OP-B Current Condition Start: 10/23/21 08:57 Freq: Status: Active Protocol: Document 10/23/21 09:50 SAK (Rec: 10/23/21 11:09 SAK [id number]) Current Condition History of Current Condition Onset Date 10/13/21 Current Complaints right knee pain and gait dysfunction History of Current Condition 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 Referred to PT for rehab s/p right TKA. Has walker, cane, and walking sticks, cane, but comes to PT with no device, limping moderately. Follow- up with PA next week. Minimal exercises since going home. Wearing FÁTIMA hose. has mild dementia so patient does more around the home. Prior to severe pain used to walk 2 miles per day, prior to Covid was member of hiking group. Treatment Goals Patient/Caregiver Goals Be able to walk on all surfaces without pain. Has 14 stairs at home railing on one side. 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 Primary Therapy/Recovery caregiver for with dementia PT-OP-C Subjective Start: 10/23/21 08:57 Freq: Status: Active Protocol: Document 12/24/21 16:53 SAK (Rec: 12/24/21 17:01 SAK [id number]) OP-PT Subjective Patient Comments Patient Comments Patient reports she called and talked with nurse about the nodule palpable in her knee, who reassured her it was just scar tissue and to continue with massage. They would look at it next appointment if doesn't get better. PT-OP-F Manual Assessment Start: 10/23/21 08:57 Freq: Status: Active Protocol: Document 10/23/21 09:50 SAK (Rec: 10/23/21 11:09 [facility] [id number]) Manual Assessments Soft Tissue Assessment Soft Tissue Mobility Assessment extensive brusing right knee and lower leg to ankle. PT-OP-G Mobility & Gait Start: 10/23/21 08:57 Freq: Status: Active Protocol: Document 10/23/21 09:50 SAK (Rec: 10/23/21 11:09 [facility] [id number]) OP Mobility Evaluation Bed Mobility Rolling indep Supine to and from Sit indep Transfers Sit to Stand indep, min use of right LE PT-OP-J Posture/Palpation/Skin Start: 10/23/21 08:57 Freq: Status: Active Protocol: Document 10/23/21 09:50 SAK (Rec: 10/23/21 11:09 [facility] [id number]) Palpation Assessment Location right knee Palpation Findings Edema,Muscle Guarding, Tenderness Palpation Details mild warmth right knee compared to left PT-OP-K Range of Motion Start: 10/23/21 08:57 Freq: Status: Active Protocol: Document 10/23/21 09:50 SAK (Rec: 10/23/21 11:09 [facility] [id number]) Knee Goniometric Range of Motion Knee Right Knee ROM WFL No Flexion Active (degrees) 84 Flexion Passive (degrees) 89 Extension Active (degrees) 24 Extension Passive (degrees) 8 Left Knee ROM WFL Yes Flexion Active (degrees) 120 Extension Active (degrees) 0 PT-OP-M Strength Start: 10/23/21 08:57 Freq: Status: Active Protocol: Document 10/23/21 09:50 SAK (Rec: 10/23/21 11:09 [facility] [id number]) Knee Strength Knee Manual Muscle Testing Right Flexion (S2) 3- Fair- Extension (L3) 3- Fair- Comments no MMT due to surgery 10/13/21 . Less than antigravity evident Left Flexion (S2) 5 Normal Extension (L3) 5 Normal Ankle/Foot Strength Ankle and Foot Manual Muscle Testing kvng Dorsiflexion (L4) 5 Normal Plantarflexion (S1) 5 Normal PT-OP-Q Treatments Start: 10/23/21 08:57 Freq: Status: Active Protocol: Document 12/22/21 15:15 [facility] (Rec: 12/22/21 16:18 [facility] [id number]) Gym Equipment Shuttle Balance chains red Details balance and weight shift fwd/ bck, side to side Reps/Duration 5 min Therapeutic Exercises Supine Exercises SAQ Side bilateral Reps/Minutes 10x Comments manual assist end range right with eccentric lowering quad sets Side bilateral Equipment Used towel roll under right ankle Reps/Minutes 10x Comments knee flex in between, push knee into extension with quad set Prone Exercises HS curl Resistance 1# ankle weight Reps/Minutes 10x2 Sitting Exercises LAQ Side bilateral Reps/Minutes 5x Comments manual assist for full knee ext. Standing Exercises quad stretch Equipment Used chair Reps/Minutes 2x stair lunge Equipment Used BOSU Reps/Minutes 10x Comments min unil UE support Gait Training Gait Activity uneven surface Device Used none Level of Assistance CGA, cues Distance/Duration 4 min Treatment Focus safety Comments hurdles: forward, side; min UE support Stairs Device Used left rail Level of Assistance verbal and manual cues, mirror for visual feedback Distance/Duration 4 steps x 2, 6 steps x 4 Treatment Focus reciprocal stepping, LE alignment PT-OP-R Modalities Start: 10/23/21 08:57 Freq: Status: Active Protocol: Document 12/16/21 10:43 [facility] (Rec: 12/16/21 11:22 [facility] [id number]) Hot Pack/Cold Pack Treatment Cold Pack Location right knee Patient Position Hooklying Treatment Duration (minutes) 10 PT-OP-S Aquatic Treatment Start: 10/23/21 08:57 Freq: Status: Active Protocol: Document 12/24/21 16:53 [facility] (Rec: 12/24/21 17:01 [facility] [id number]) Aquatics Treatment Pool Entry/Exit Pool Entry/Exit Method Stairs Assistance Independent Comments unil UE support Water Walking Lunge Walk Water Level Waist Level Walking Equipment large ankle floats Level of Assistance Verbal Cues Comments unil UE support [place] Water Level Chest Level Walking Equipment large ankle floats Level of Assistance Verbal Cues Comments unil UE support Sideways Water Level Chest Level Walking Equipment large ankle floats Level of Assistance Verbal Cues Comments unil UE support Backwards Water Level Chest Level Walking Equipment large ankle floats Level of Assistance Verbal Cues Comments unil UE support Forwards Water Level Chest Level Walking Equipment large ankle floats Level of Assistance Verbal Cues Comments unil UE support Lower Extremity Exercises step up/down Water Level Chest Level Equipment 3 lg boxes Reps/Duration 7x f/b, side Comments cues for body positioning and complete knee extension Lower Extremity Stretches TFL Details at wall Body Position Standing Water Level Waist Level Reps/Duration 2 x 30 R HS Details back against wall Body Position Standing Water Level Chest Level Equipment large ankle float Reps/Duration 2 x 30 quads, hip flexors Details at wall Body Position Standing Water Level Chest Level Equipment large ankle float Reps/Duration 2 x 30 R Bussey Activities Bussey Activities Bicycle,Bicycle Backwards, Cross Country,Running,Hip Abduction/Adduction,Sit Kicks Other Activities bicycle without UE's bicycle with UE's at sides underwater holding small barbells Equipment flotation belt Comments medium barbells for backward PT-OP-T Assessment and Plan Start: 10/23/21 08:57 Freq: Status: Active Protocol: Document 12/24/21 16:53 [facility] (Rec: 12/24/21 17:01 [facility] [id number]) Physical Therapy Assessment Rehab Potential Rehabilitation Potential Excellent Evaluation Complexity Number of Personal Factors/Comorbidities 1-2 Number of Body Systems Impaired 3 Clinical Presentation at Evaluation Evolving Impairments Impairments Functional Mobility,Gait,Pain, ROM,Strength Goals Three Impairment Lower extremity functional score 25% Short Term Goal (STG) Improve LEFS to at least 50% as measure of improved knee function STG Duration 11/23/21 Biodiesel Division Manager Goal (LTG) Improve LEFS to at least 75% as measure of improved right knee function LTG Duration 12/22/21 Two Impairment antalgic gait, step-to on stairs Short Term Goal (STG) Patient able to ambulate without limp on level surfaces with least restrictive device and ascend and descend stairs safely STG Duration 11/23/21 Biodiesel Division Manager Goal (LTG) Patient will be able to ambulate without limp without assistive device for at least short distance community ambulation and be able to ambulate on stairs with alternating pattern without difficulty LTG Duration 12/22/21 One Impairment R knee ROM restrictions 24-84 actively, lacking antigravity knee strength Short Term Goal (STG) Patient to be independent with HEP to address ROM and strength limitations STG Duration 11/23/21 Correction Goal (LTG) Patient to demonstrate right knee ROM 0-120 and right knee strength of at least 4/5 LTG Duration 12/22/21 Progress Towards Goals Progress Towards Goals Progressing Toward Goals Assessment Summary Assessment No pain with step-ups in water . Able to progress to gait using large ankle floats and used them for knee stretches as well with good tolerance. More difficulty with balance on step-ups leading with right LE to ascend and descending with right LE doing eccentric lowering. Physical Therapy Plan Frequency and Duration Frequency of Treatment 2x/Week Duration of Treatment 8 weeks Plan of Care Start Date 10/23/21 Plan of Care End Date 12/22/21 Therapeutic Interventions Therapeutic Interventions Aquatic Therapy,Home Exercise Program,Neuromuscular Re- education,Patient/Caregiver Education,Self-Care/Home Management,Soft Tissue Mobilization,Taping, Therapeutic Activities, Therapeutic Exercises Modalities Cold Pack/Ice Massage,Electric Stimulation,Hot Packs Next Visit Focus/Plan Next Note Type Treatment Note Next Visit Plan Continue PT with emphasis on soft tissue mobilization, gait and balance on uneven ground, end-range ROM . Staggered feet on shuttle balance. sport cord for challenged gait .
--- NOTE | 2021-12-30 16:31 | PT.OTN ---
Current Diagnoses Unilateral primary osteoarthritis, right knee (12/30/21) Physical Therapy Treatment Note PT-OP-A Visit Information Start: 10/23/21 08:57 Freq: Status: Active Protocol: Document 12/30/21 15:16 SAK (Rec: 12/30/21 16:31 [facility] [id number]) Out-Patient Physical Therapy Visit Information Visit Information Visit Type Treatment Note Visit Start Time 15:15 Visit Stop Time 16:14 Total Visit Minutes 59 Visit Number 18 Evaluation Information Evaluation Date 12/04/21 PT-OP-B Current Condition Start: 10/23/21 08:57 Freq: Status: Active Protocol: Document 10/23/21 09:50 SAK (Rec: 10/23/21 11:09 [facility] [id number]) Current Condition History of Current Condition Onset Date 10/13/21 Current Complaints right knee pain and gait dysfunction History of Current Condition 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 Referred to PT for rehab s/p right TKA. Has walker, cane, and walking sticks, cane, but comes to PT with no device, limping moderately. Follow- up with PA next week. Minimal exercises since going home. Wearing FÁTIMA hose. has mild dementia so patient does more around the home. Prior to severe pain used to walk 2 miles per day, prior to Covid was member of hiking group. Treatment Goals Patient/Caregiver Goals Be able to walk on all surfaces without pain. Has 14 stairs at home railing on one side. 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 I don't need to warm up. Reports ascending stairs ok, but pain persists in knee with descending, frustrated. PT-OP-F Manual Assessment Start: 10/23/21 08:57 Freq: Status: Active Protocol: Document 10/23/21 09:50 SAK (Rec: 10/23/21 11:09 [facility] [id number]) Manual Assessments Soft Tissue Assessment Soft Tissue Mobility Assessment extensive brusing right knee and lower leg to ankle. PT-OP-G Mobility & Gait Start: 10/23/21 08:57 Freq: Status: Active Protocol: Document 10/23/21 09:50 SAK (Rec: 10/23/21 11:09 [facility] [id number]) OP Mobility Evaluation Bed Mobility Rolling indep Supine to and from Sit indep Transfers Sit to Stand indep, min use of right LE PT-OP-J Posture/Palpation/Skin Start: 10/23/21 08:57 Freq: Status: Active Protocol: Document 10/23/21 09:50 SAK (Rec: 10/23/21 11:09 [facility] [id number]) Palpation Assessment Location right knee Palpation Findings Edema,Muscle Guarding, Tenderness Palpation Details mild warmth right knee compared to left PT-OP-K Range of Motion Start: 10/23/21 08:57 Freq: Status: Active Protocol: Document 10/23/21 09:50 [facility] (Rec: 10/23/21 11:09 [facility] [id number]) Knee Goniometric Range of Motion Knee Right Knee ROM WFL No Flexion Active (degrees) 84 Flexion Passive (degrees) 89 Extension Active (degrees) 24 Extension Passive (degrees) 8 Left Knee ROM WFL Yes Flexion Active (degrees) 120 Extension Active (degrees) 0 PT-OP-M Strength Start: 10/23/21 08:57 Freq: Status: Active Protocol: Document 10/23/21 09:50 [facility] (Rec: 10/23/21 11:09 [facility] [id number]) Knee Strength Knee Manual Muscle Testing Right Flexion (S2) 3- Fair- Extension (L3) 3- Fair- Comments no MMT due to surgery 10/13/21 . Less than antigravity evident Left Flexion (S2) 5 Normal Extension (L3) 5 Normal Ankle/Foot Strength Ankle and Foot Manual Muscle Testing kvng Dorsiflexion (L4) 5 Normal Plantarflexion (S1) 5 Normal PT-OP-Q Treatments Start: 10/23/21 08:57 Freq: Status: Active Protocol: Document 12/30/21 15:16 [facility] (Rec: 12/30/21 16:31 [facility] [id number]) Gym Equipment Shuttle Balance chains red Details balance and weight shift fwd/ bck, side to side Reps/Duration 5 min Therapeutic Exercises Supine Exercises quad sets Side bilateral Equipment Used towel roll under right ankle Reps/Minutes 10x Comments knee flex in between, push knee into extension with quad set Standing Exercises step ups and downs Reps/Minutes 6x Comments mirror for visual feedback Manual Therapy Treatment Soft Tissue Mobilization HS Body Location R HS/gastrocs Mobilization Type Myofascial Release,Rolling Intensity/Depth Moderate Body Position Prone Comments for improving knee ext Joint Mobilizations anterior glide tibia Direction ant Grade III Body Position Supine Reps/Duration 5 MIN Comments to facil knee extension, followed by quad sets Taping 1 Body Location right knee Treatment Focus facilitate medial patellar glide Type of Tape kinesiotape Skin Inspection intact Comments 1 Y strip with base medial to patella, 50-75% stretch to lateral patella. 2 Y strips starting superior and inferior to knee, stretched 50% along lateral and medial edges of patella for stabilization Self-Care/Home Management Treatment Education Patient Education Home Exercise Program,Pain Management Other Education remove kinesiotape after 3 days discussed POC PT-OP-R Modalities Start: 10/23/21 08:57 Freq: Status: Active Protocol: Document 12/30/21 15:16 [facility] (Rec: 12/30/21 16:31 [facility] [id number]) Electric Stimulation Electric Stimulation right knee Duration (Minutes) 10 Intensity 15 Target/Sweep Sweep Patient Position Supine Combined With Heat/Cold Cold Pack PT-OP-S Aquatic Treatment Start: 10/23/21 08:57 Freq: Status: Active Protocol: Document 12/24/21 16:53 [facility] (Rec: 12/24/21 17:01 [facility] [id number]) Aquatics Treatment Pool Entry/Exit Pool Entry/Exit Method Stairs Assistance Independent Comments unil UE support Water Walking Lunge Walk Water Level Waist Level Walking Equipment large ankle floats Level of Assistance Verbal Cues Comments unil UE support [place] December Water Level Chest Level Walking Equipment large ankle floats Level of Assistance Verbal Cues Comments unil UE support Sideways Water Level Chest Level Walking Equipment large ankle floats Level of Assistance Verbal Cues Comments unil UE support Backwards Water Level Chest Level Walking Equipment large ankle floats Level of Assistance Verbal Cues Comments unil UE support [place] Water Level Chest Level Walking Equipment large ankle floats Level of Assistance Verbal Cues Comments unil UE support Lower Extremity Exercises step up/down Water Level Chest Level Equipment 3 lg boxes Reps/Duration 7x f/b, side Comments cues for body positioning and complete knee extension Lower Extremity Stretches TFL Details at wall Body Position Standing Water Level Waist Level Reps/Duration 2 x 30 R HS Details back against wall Body Position Standing Water Level Chest Level Equipment large ankle float Reps/Duration 2 x 30 quads, hip flexors Details at wall Body Position Standing Water Level Chest Level Equipment large ankle float Reps/Duration 2 x 30 R [place] Activities [place] Activities Bicycle,Bicycle Backwards, Cross Country,Running,Hip Abduction/Adduction,Sit Kicks Other Activities bicycle without UE's bicycle with UE's at sides underwater holding small barbells Equipment flotation belt Comments medium barbells for backward PT-OP-T Assessment and Plan Start: 10/23/21 08:57 Freq: Status: Active Protocol: Document 12/30/21 15:16 [facility] (Rec: 12/30/21 16:31 [facility] [id number]) Physical Therapy Assessment Goals Three Impairment Lower extremity functional score 25% Short Term Goal (STG) Improve LEFS to at least 50% as measure of improved knee function 12/22/21: goal met STG Duration goal met [facility] Goal (LTG) Improve LEFS to at least 75% as measure of improved right knee function 12/30/21: goal progress at 57% LTG Duration 02/13/22 Two Impairment antalgic gait, step-to on stairs Short Term Goal (STG) Patient able to ambulate without limp on level surfaces with least restrictive device and ascend and descend stairs safely 12/22/21: goal met STG Duration goal met [employer]iller Goal (LTG) Patient will be able to ambulate without limp without assistive device for at least short distance community ambulation and be able to ambulate on stairs with alternating pattern without difficulty 12/30/21: no difficulty with ambulation on level surfaces or when ascending stairs, but pain with descending stairs persists, possibly due to excess lateral glide of patella LTG Duration 02/13/22 One Impairment R knee ROM restrictions 24-84 actively, lacking antigravity knee strength Short Term Goal (STG) Patient to be independent with HEP to address ROM and strength limitations 12/22/21: goal met STG Duration goal met [employer]iller Goal (LTG) Patient to demonstrate right knee ROM 0-120 and right knee strength of at least 4/5 12/30/21: AROM 5-120 LTG Duration 02/13/22 Progress Towards Goals Progress Towards Goals Progressing Toward Goals Assessment Summary Assessment Patient overall progressing well, though lacking full knee extension at 5 degree lag, able to get to 0 by end of PT session after heavy manual treatment followed by quad sets. Pain in knee persists with descending stairs, trial kinesiotape to facilitate medial glide patella with descending. She is highly compliant to HEP, wearing compression stocking, and icing. Due to this persistent pain and swelling, as well as patient unable to achieve full extension on her own feel she would benefit from further PT to help her fully achieve her PT goals and return to her very active lifestyle including hiking. Physical Therapy Plan Frequency and Duration Frequency of Treatment 2x/Week Duration of Treatment 6 weeks Plan of Care Start Date 12/22/21 Plan of Care End Date 02/13/22 Therapeutic Interventions Therapeutic Interventions Aquatic Therapy,Home Exercise Program,Neuromuscular Re- education,Patient/Caregiver Education,Self-Care/Home Management,Soft Tissue Mobilization,Taping, Therapeutic Activities, Therapeutic Exercises Modalities Cold Pack/Ice Massage,Electric Stimulation,Hot Packs Next Visit Focus/Plan Next Note Type Treatment Note Next Visit Plan Continue manual treatment, strengthening of quads, and mobilization with movement techniques to achieve full knee extension and pain-free descending of stairs. Continue kinesiotape if helpful. Modalities to decrease pain and swelling.
--- NOTE | 2021-12-30 16:32 | PT.OPPOC ---
Physical, Occupational & Speech Therapy At [facility] Current Diagnoses Unilateral primary osteoarthritis, right knee (12/30/21) Visit Care Team Role Provider Type Maryse Ulloa MD Family Provider Physician Primary Care Provider Specialty: Internal Medicine Address: [address] [place] [address], [id number] Email: [email or web address] Ria Jeronimo PA-C Attending Provider Non-Staff Referring Provider Specialty: General Surgery Address: [address] [place] [address], [id number] Email: Plan Of Care PT-OP-T Assessment and Plan Start: 10/23/21 08:57 Freq: Status: Active Protocol: Document 12/30/21 15:16 SAK (Rec: 12/30/21 16:31 [facility] [id number]) Physical Therapy Assessment Goals Three Impairment Lower extremity functional score 25% Short Term Goal (STG) Improve LEFS to at least 50% as measure of improved knee function 12/22/21: goal met STG Duration goal met Jail Goal (LTG) Improve LEFS to at least 75% as measure of improved right knee function 12/30/21: goal progress at 57% LTG Duration 02/13/22 Two Impairment antalgic gait, step-to on stairs Short Term Goal (STG) Patient able to ambulate without limp on level surfaces with least restrictive device and ascend and descend stairs safely 12/22/21: goal met STG Duration goal met Jail Goal (LTG) Patient will be able to ambulate without limp without assistive device for at least short distance community ambulation and be able to ambulate on stairs with alternating pattern without difficulty 12/30/21: no difficulty with ambulation on level surfaces or when ascending stairs, but pain with descending stairs persists, possibly due to excess lateral glide of patella LTG Duration 02/13/22 One Impairment R knee ROM restrictions 24-84 actively, lacking antigravity knee strength Short Term Goal (STG) Patient to be independent with HEP to address ROM and strength limitations 12/22/21: goal met STG Duration goal met [employer] Goal (LTG) Patient to demonstrate right knee ROM 0-120 and right knee strength of at least 4/5 12/30/21: AROM 5-120 LTG Duration 02/13/22 Progress Towards Goals Progress Towards Goals Progressing Toward Goals Assessment Summary Assessment Patient overall progressing well, though lacking full knee extension at 5 degree lag, able to get to 0 by end of PT session after heavy manual treatment followed by quad sets. Pain in knee persists with descending stairs, trial kinesiotape to facilitate medial glide patella with descending. She is highly compliant to HEP, wearing compression stocking, and icing. Due to this persistent pain and swelling, as well as patient unable to achieve full extension on her own feel she would benefit from further PT to help her fully achieve her PT goals and return to her very active lifestyle including hiking. Physical Therapy Plan Frequency and Duration Frequency of Treatment 2x/Week Duration of Treatment 6 weeks Plan of Care Start Date 12/22/21 Plan of Care End Date 02/13/22 Therapeutic Interventions Therapeutic Interventions Aquatic Therapy,Home Exercise Program,Neuromuscular Re- education,Patient/Caregiver Education,Self-Care/Home Management,Soft Tissue Mobilization,Taping, Therapeutic Activities, Therapeutic Exercises Modalities Cold Pack/Ice Massage,Electric Stimulation,Hot Packs Next Visit Focus/Plan Next Note Type Treatment Note Next Visit Plan Continue manual treatment, strengthening of quads, and mobilization with movement techniques to achieve full knee extension and pain-free descending of stairs. Continue kinesiotape if helpful. Modalities to decrease pain and swelling. Plan of Care Dates Plan of Care Start Date 12/22/21 Plan of Care End Date 02/13/22 Electronically Signed by: Aziza Santiago, PT 12/30/21 [id number] Please Sign and Return: I have reviewed this Plan of Care and certify that the skilled therapy services above are required to meet the patient?s needs. Physician Signature Date Printed Name and Credentials Clinical Instructor Signature Printed Name and Credentials
--- NOTE | 2022-01-08 15:33 | PT.OTN ---
Current Diagnoses Unilateral primary osteoarthritis, right knee (01/08/22) Physical Therapy Treatment Note PT-OP-A Visit Information Start: 10/23/21 08:57 Freq: Status: Active Protocol: Document 01/08/22 14:33 SAK (Rec: 01/08/22 15:33 SAK [id number]) Out-Patient Physical Therapy Visit Information Visit Information Visit Type Treatment Note Visit Start Time 14:30 Visit Stop Time 15:16 Total Visit Minutes 46 Visit Number 19 Evaluation Information Evaluation Date 12/04/21 PT-OP-B Current Condition Start: 10/23/21 08:57 Freq: Status: Active Protocol: Document 10/23/21 09:50 SAK (Rec: 10/23/21 11:09 SAK [id number]) Current Condition History of Current Condition Onset Date 10/13/21 Current Complaints right knee pain and gait dysfunction History of Current Condition 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 Referred to PT for rehab s/p right TKA. Has walker, cane, and walking sticks, cane, but comes to PT with no device, limping moderately. Follow- up with PA next week. Minimal exercises since going home. Wearing FÁTIMA hose. has mild dementia so patient does more around the home. Prior to severe pain used to walk 2 miles per day, prior to Covid was member of hiking group. Treatment Goals Patient/Caregiver Goals Be able to walk on all surfaces without pain. Has 14 stairs at home railing on one side. 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 Primary Therapy/Recovery caregiver for with dementia PT-OP-C Subjective Start: 10/23/21 08:57 Freq: Status: Active Protocol: Document 01/08/22 14:33 SAK (Rec: 01/08/22 15:33 SAK [id number]) OP-PT Subjective Patient Comments Patient Comments Patient reports knee getting some better on stairs, went to [place] with some friends and walked the long stairs there, made herself do alternating steps. Continues with HEP and self-massage, thinks maybe tight nodule area on knee a little better. PT-OP-F Manual Assessment Start: 10/23/21 08:57 Freq: Status: Active Protocol: Document 10/23/21 09:50 SAK (Rec: 10/23/21 11:09 [facility] [id number]) Manual Assessments Soft Tissue Assessment Soft Tissue Mobility Assessment extensive brusing right knee and lower leg to ankle. PT-OP-G Mobility & Gait Start: 10/23/21 08:57 Freq: Status: Active Protocol: Document 10/23/21 09:50 SAK (Rec: 10/23/21 11:09 [facility] [id number]) OP Mobility Evaluation Bed Mobility Rolling indep Supine to and from Sit indep Transfers Sit to Stand indep, min use of right LE PT-OP-J Posture/Palpation/Skin Start: 10/23/21 08:57 Freq: Status: Active Protocol: Document 10/23/21 09:50 SAK (Rec: 10/23/21 11:09 [facility] [id number]) Palpation Assessment Location right knee Palpation Findings Edema,Muscle Guarding, Tenderness Palpation Details mild warmth right knee compared to left PT-OP-K Range of Motion Start: 10/23/21 08:57 Freq: Status: Active Protocol: Document 10/23/21 09:50 SAK (Rec: 10/23/21 11:09 [facility] [id number]) Knee Goniometric Range of Motion Knee Right Knee ROM WFL No Flexion Active (degrees) 84 Flexion Passive (degrees) 89 Extension Active (degrees) 24 Extension Passive (degrees) 8 Left Knee ROM WFL Yes Flexion Active (degrees) 120 Extension Active (degrees) 0 PT-OP-M Strength Start: 10/23/21 08:57 Freq: Status: Active Protocol: Document 10/23/21 09:50 SAK (Rec: 10/23/21 11:09 [facility] [id number]) Knee Strength Knee Manual Muscle Testing Right Flexion (S2) 3- Fair- Extension (L3) 3- Fair- Comments no MMT due to surgery 10/13/21 . Less than antigravity evident Left Flexion (S2) 5 Normal Extension (L3) 5 Normal Ankle/Foot Strength Ankle and Foot Manual Muscle Testing kvng Dorsiflexion (L4) 5 Normal Plantarflexion (S1) 5 Normal PT-OP-Q Treatments Start: 10/23/21 08:57 Freq: Status: Active Protocol: Document 01/08/22 14:33 [facility] (Rec: 01/08/22 15:33 [facility] [id number]) Gym Equipment Sport Cord green then red cord Exercise Details forward, back, side Therapeutic Exercises Supine Exercises SAQ Side bilateral Resistance 1# Reps/Minutes 10x Comments manual assist end range right with eccentric lowering quad sets Side bilateral Equipment Used towel roll under right ankle Reps/Minutes 10x Comments knee flex in between, push knee into extension with quad set, manual stretc Sitting Exercises LAQ Side bilateral Reps/Minutes 10x Comments manual assist for full knee ext. Standing Exercises step ups and downs Reps/Minutes 6x Comments mirror for visual feedback Manual Therapy Treatment Soft Tissue Mobilization HS Body Location R HS/gastrocs Mobilization Type Myofascial Release,Rolling Intensity/Depth Moderate Body Position Prone Comments for improving knee ext Scar Body Location R Mobilization Type Instrument Assisted Intensity/Depth Moderate quads Mobilization Type Strumming,Sustained Pressure, Trigger Point Release Intensity/Depth gentle Body Position Hooklying Joint Mobilizations anterior glide tibia Direction ant Grade III Body Position Supine Reps/Duration 5 MIN Comments to facil knee extension, followed by quad sets Taping 1 Body Location right knee Treatment Focus facilitate medial patellar glide Type of Tape kinesiotape Skin Inspection intact Comments 1 Y strip with base medial to patella, 50-75% stretch to lateral patella. 2 Y strips starting superior and inferior to knee, stretched 50% along lateral and medial edges of patella for stabilization Self-Care/Home Management Treatment Education Other Education patient performed kinesiotaping with PT instruction and assistance. PT-OP-R Modalities Start: 10/23/21 08:57 Freq: Status: Active Protocol: Document 01/08/22 14:33 [facility] (Rec: 01/08/22 15:33 [facility] [id number]) Electric Stimulation Electric Stimulation right knee Comments patient refused due to time PT-OP-S Aquatic Treatment Start: 10/23/21 08:57 Freq: Status: Active Protocol: Document 12/24/21 16:53 SAK (Rec: 12/24/21 17:01 [facility] [id number]) Aquatics Treatment Pool Entry/Exit Pool Entry/Exit Method Stairs Assistance Independent Comments unil UE support Water Walking Lunge Walk Water Level Waist Level Walking Equipment large ankle floats Level of Assistance Verbal Cues Comments unil UE support [place] December Water Level Chest Level Walking Equipment large ankle floats Level of Assistance Verbal Cues Comments unil UE support Sideways Water Level Chest Level Walking Equipment large ankle floats Level of Assistance Verbal Cues Comments unil UE support Backwards Water Level Chest Level Walking Equipment large ankle floats Level of Assistance Verbal Cues Comments unil UE support [place] Water Level Chest Level Walking Equipment large ankle floats Level of Assistance Verbal Cues Comments unil UE support Lower Extremity Exercises step up/down Water Level Chest Level Equipment 3 lg boxes Reps/Duration 7x f/b, side Comments cues for body positioning and complete knee extension Lower Extremity Stretches TFL Details at wall Body Position Standing Water Level Waist Level Reps/Duration 2 x 30 R HS Details back against wall Body Position Standing Water Level Chest Level Equipment large ankle float Reps/Duration 2 x 30 quads, hip flexors Details at wall Body Position Standing Water Level Chest Level Equipment large ankle float Reps/Duration 2 x 30 R Advance Activities Advance Activities Bicycle,Bicycle Backwards, Cross Country,Running,Hip Abduction/Adduction,Sit Kicks Other Activities bicycle without UE's bicycle with UE's at sides underwater holding small barbells Equipment flotation belt Comments medium barbells for backward PT-OP-T Assessment and Plan Start: 10/23/21 08:57 Freq: Status: Active Protocol: Document 01/08/22 14:33 [facility] (Rec: 01/08/22 15:33 [facility] [id number]) Physical Therapy Assessment Goals Three Impairment Lower extremity functional score 25% Short Term Goal (STG) Improve LEFS to at least 50% as measure of improved knee function 12/22/21: goal met STG Duration goal met Automatic Splicing Machine Operator Goal (LTG) Improve LEFS to at least 75% as measure of improved right knee function 12/30/21: goal progress at 57% LTG Duration 02/13/22 Two Impairment antalgic gait, step-to on stairs Short Term Goal (STG) Patient able to ambulate without limp on level surfaces with least restrictive device and ascend and descend stairs safely 12/22/21: goal met STG Duration goal met Automatic Splicing Machine Operator Goal (LTG) Patient will be able to ambulate without limp without assistive device for at least short distance community ambulation and be able to ambulate on stairs with alternating pattern without difficulty 12/30/21: no difficulty with ambulation on level surfaces or when ascending stairs, but pain with descending stairs persists, possibly due to excess lateral glide of patella LTG Duration 02/13/22 One Impairment R knee ROM restrictions 24-84 actively, lacking antigravity knee strength Short Term Goal (STG) Patient to be independent with HEP to address ROM and strength limitations 12/22/21: goal met STG Duration goal met Automatic Splicing Machine Operator Goal (LTG) Patient to demonstrate right knee ROM 0-120 and right knee strength of at least 4/5 12/30/21: AROM 5-120 LTG Duration 02/13/22 Progress Towards Goals Progress Towards Goals Progressing Toward Goals Assessment Summary Assessment after manual stretch and mobilization followed by quad set patient able to achieve full knee extension. Fair ability to apply kinesiotape, will need further practice. Encouraged increased emphasis on full extension, continued self-massage. Sees surgeon next week. Physical Therapy Plan Frequency and Duration Frequency of Treatment 2x/Week Duration of Treatment 6 weeks Plan of Care Start Date 12/22/21 Plan of Care End Date 02/13/22 Therapeutic Interventions Therapeutic Interventions Aquatic Therapy,Home Exercise Program,Neuromuscular Re- education,Patient/Caregiver Education,Self-Care/Home Management,Soft Tissue Mobilization,Taping, Therapeutic Activities, Therapeutic Exercises Modalities Cold Pack/Ice Massage,Electric Stimulation,Hot Packs Next Visit Focus/Plan Next Note Type Treatment Note Next Visit Plan Continue manual treatment, strengthening of quads, and mobilization with movement techniques to achieve full knee extension and pain-free descending of stairs. Continue kinesiotape if helpful. Modalities to decrease pain and swelling.
--- NOTE | 2022-01-20 10:54 | PT.OTN ---
Current Diagnoses Unilateral primary osteoarthritis, right knee (01/20/22) Physical Therapy Treatment Note PT-OP-A Visit Information Start: 10/23/21 08:57 Freq: Status: Active Protocol: Document 01/20/22 09:02 SAK (Rec: 01/20/22 10:33 [facility] [id number]) Out-Patient Physical Therapy Visit Information Visit Information Visit Type Treatment Note Visit Start Time 09:02 Visit Stop Time 09:45 Total Visit Minutes 43 Visit Number 20 Evaluation Information Evaluation Date 12/04/21 PT-OP-B Current Condition Start: 10/23/21 08:57 Freq: Status: Active Protocol: Document 10/23/21 09:50 SAK (Rec: 10/23/21 11:09 SAK [id number]) Current Condition History of Current Condition Onset Date 10/13/21 Current Complaints right knee pain and gait dysfunction History of Current Condition 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 Referred to PT for rehab s/p right TKA. Has walker, cane, and walking sticks, cane, but comes to PT with no device, limping moderately. Follow- up with PA next week. Minimal exercises since going home. Wearing FÁTIMA hose. has mild dementia so patient does more around the home. Prior to severe pain used to walk 2 miles per day, prior to Covid was member of hiking group. Treatment Goals Patient/Caregiver Goals Be able to walk on all surfaces without pain. Has 14 stairs at home railing on one side. 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 Primary Therapy/Recovery caregiver for with dementia PT-OP-C Subjective Start: 10/23/21 08:57 Freq: Status: Active Protocol: Document 01/20/22 09:02 SAK (Rec: 01/20/22 10:33 SAK [id number]) OP-PT Subjective Patient Comments Patient Comments Has had a set-back, has been very busy and hasn't done her HEP or gotten to gym or pool, lots of stress. Kneeled on pavement and did a lot of yardwork. The doctor said he was very happy with her knee. Taped herself but reports she did a terrible job. Stairs are more difficult. PT-OP-F Manual Assessment Start: 10/23/21 08:57 Freq: Status: Active Protocol: Document 10/23/21 09:50 SAK (Rec: 10/23/21 11:09 [facility] [id number]) Manual Assessments Soft Tissue Assessment Soft Tissue Mobility Assessment extensive brusing right knee and lower leg to ankle. PT-OP-G Mobility & Gait Start: 10/23/21 08:57 Freq: Status: Active Protocol: Document 10/23/21 09:50 SAK (Rec: 10/23/21 11:09 [facility] [id number]) OP Mobility Evaluation Bed Mobility Rolling indep Supine to and from Sit indep Transfers Sit to Stand indep, min use of right LE PT-OP-J Posture/Palpation/Skin Start: 10/23/21 08:57 Freq: Status: Active Protocol: Document 10/23/21 09:50 [facility] (Rec: 10/23/21 11:09 [facility] [id number]) Palpation Assessment Location right knee Palpation Findings Edema,Muscle Guarding, Tenderness Palpation Details mild warmth right knee compared to left PT-OP-K Range of Motion Start: 10/23/21 08:57 Freq: Status: Active Protocol: Document 10/23/21 09:50 [facility] (Rec: 10/23/21 11:09 [facility] [id number]) Knee Goniometric Range of Motion Knee Right Knee ROM WFL No Flexion Active (degrees) 84 Flexion Passive (degrees) 89 Extension Active (degrees) 24 Extension Passive (degrees) 8 Left Knee ROM WFL Yes Flexion Active (degrees) 120 Extension Active (degrees) 0 PT-OP-M Strength Start: 10/23/21 08:57 Freq: Status: Active Protocol: Document 10/23/21 09:50 [facility] (Rec: 10/23/21 11:09 [facility] [id number]) Knee Strength Knee Manual Muscle Testing Right Flexion (S2) 3- Fair- Extension (L3) 3- Fair- Comments no MMT due to surgery 10/13/21 . Less than antigravity evident Left Flexion (S2) 5 Normal Extension (L3) 5 Normal Ankle/Foot Strength Ankle and Foot Manual Muscle Testing kvng Dorsiflexion (L4) 5 Normal Plantarflexion (S1) 5 Normal PT-OP-Q Treatments Start: 10/23/21 08:57 Freq: Status: Active Protocol: Document 01/20/22 09:02 [facility] (Rec: 01/20/22 10:33 [facility] [id number]) Cardio Equipment Bicycle (Upright) Duration (Minutes) 10 Resistance 3 Seat Position 4 Other cues for neutral LE alignment Gym Equipment Shuttle Recovery Unilateral Squats Details cues for neutral LE alignment and end range ext Resistance 50 Shuttle Recovery Platform Stable Reps/Time x10 Bilateral Squats Details L2 TB distal thighs cues for neutral LE alignment and end range ext Resistance 75 Shuttle Recovery Platform Stable Reps/Time 2x10 Therapeutic Exercises Sitting Exercises LAQ Side bilateral Reps/Minutes 10x Comments manual assist for full knee ext. Standing Exercises step-downs Reps/Minutes 10x Comments 4 stair step ups and downs Reps/Minutes 6x Comments mirror for visual feedback chair squat Equipment Used L2 TB distal thighs, mirror for visual feedback Reps/Minutes 10x2 Comments cues for neutral LE's HC stretch Reps/Minutes 2x30 Comments KAYLEE Manual Therapy Treatment Taping 1 Body Location right knee Treatment Focus facilitate medial patellar glide Type of Tape kinesiotape Skin Inspection intact Comments 1 Y strip with base medial to patella, 50-75% stretch to lateral patella. 2 Y strips starting superior and inferior to knee, stretched 50% along lateral and medial edges of patella for stabilization Neuro Re-Education Treatment Balance Activities 1 Details obstacle course Comments 4 and 6 boxes, foam, hurdles PT-OP-R Modalities Start: 10/23/21 08:57 Freq: Status: Active Protocol: Document 01/08/22 14:33 [facility] (Rec: 01/08/22 15:33 [facility] [id number]) Electric Stimulation Electric Stimulation right knee Comments patient refused due to time PT-OP-S Aquatic Treatment Start: 10/23/21 08:57 Freq: Status: Active Protocol: Document 12/24/21 16:53 [facility] (Rec: 12/24/21 17:01 [facility] [id number]) Aquatics Treatment Pool Entry/Exit Pool Entry/Exit Method Stairs Assistance Independent Comments unil UE support Water Walking Lunge Walk Water Level Waist Level Walking Equipment large ankle floats Level of Assistance Verbal Cues Comments unil UE support [place] Water Level Chest Level Walking Equipment large ankle floats Level of Assistance Verbal Cues Comments unil UE support Sideways Water Level Chest Level Walking Equipment large ankle floats Level of Assistance Verbal Cues Comments unil UE support Backwards Water Level Chest Level Walking Equipment large ankle floats Level of Assistance Verbal Cues Comments unil UE support [place] Water Level Chest Level Walking Equipment large ankle floats Level of Assistance Verbal Cues Comments unil UE support Lower Extremity Exercises step up/down Water Level Chest Level Equipment 3 lg boxes Reps/Duration 7x f/b, side Comments cues for body positioning and complete knee extension Lower Extremity Stretches TFL Details at wall Body Position Standing Water Level Waist Level Reps/Duration 2 x 30 R HS Details back against wall Body Position Standing Water Level Chest Level Equipment large ankle float Reps/Duration 2 x 30 quads, hip flexors Details at wall Body Position Standing Water Level Chest Level Equipment large ankle float Reps/Duration 2 x 30 R [place] Activities [place] Activities Bicycle,Bicycle Backwards, Cross Country,Running,Hip Abduction/Adduction,Sit Kicks Other Activities bicycle without UE's bicycle with UE's at sides underwater holding small barbells Equipment flotation belt Comments medium barbells for backward PT-OP-T Assessment and Plan Start: 10/23/21 08:57 Freq: Status: Active Protocol: Document 01/20/22 09:02 [facility] (Rec: 01/20/22 10:33 [facility] [id number]) Physical Therapy Assessment Goals Three Impairment Lower extremity functional score 25% Short Term Goal (STG) Improve LEFS to at least 50% as measure of improved knee function 12/22/21: goal met STG Duration goal met Knitting Demonstrator Goal (LTG) Improve LEFS to at least 75% as measure of improved right knee function 12/30/21: goal progress at 57% LTG Duration 02/13/22 Two Impairment antalgic gait, step-to on stairs Short Term Goal (STG) Patient able to ambulate without limp on level surfaces with least restrictive device and ascend and descend stairs safely 12/22/21: goal met STG Duration goal met Skilled Nursing Goal (LTG) Patient will be able to ambulate without limp without assistive device for at least short distance community ambulation and be able to ambulate on stairs with alternating pattern without difficulty 12/30/21: no difficulty with ambulation on level surfaces or when ascending stairs, but pain with descending stairs persists, possibly due to excess lateral glide of patella LTG Duration 02/13/22 One Impairment R knee ROM restrictions 24-84 actively, lacking antigravity knee strength Short Term Goal (STG) Patient to be independent with HEP to address ROM and strength limitations 12/22/21: goal met STG Duration goal met Skilled Nursing Goal (LTG) Patient to demonstrate right knee ROM 0-120 and right knee strength of at least 4/5 12/30/21: AROM 5-120 LTG Duration 02/13/22 Assessment Summary Assessment Patient high stress level has complicated her recovery recently with decreased exercise. Patient needed cues for alignment and muscle activation sequencing with sit to stand and chair squats and chair squats were added to HEP with written handout given . Step-ups and downs from pain-free height also encouraged with patient demonstrating good understanding. Physical Therapy Plan Frequency and Duration Frequency of Treatment 2x/Week Duration of Treatment 6 weeks Plan of Care Start Date 12/22/21 Plan of Care End Date 02/13/22 Therapeutic Interventions Therapeutic Interventions Aquatic Therapy,Home Exercise Program,Neuromuscular Re- education,Patient/Caregiver Education,Self-Care/Home Management,Soft Tissue Mobilization,Taping, Therapeutic Activities, Therapeutic Exercises Modalities Cold Pack/Ice Massage,Electric Stimulation,Hot Packs Next Visit Focus/Plan Next Note Type Treatment Note Next Visit Plan Continue manual treatment, strengthening of quads, and mobilization with movement techniques to achieve full knee extension and pain-free descending of stairs. Continue kinesiotape if helpful. Modalities to decrease pain and swelling.
--- NOTE | 2022-02-05 16:45 | PT.OTN ---
Current Diagnoses Unilateral primary osteoarthritis, right knee (02/05/22) Physical Therapy Treatment Note PT-OP-A Visit Information Start: 10/23/21 08:57 Freq: Status: Active Protocol: Document 02/05/22 11:19 SAK (Rec: 02/05/22 11:53 [facility] [id number]) Out-Patient Physical Therapy Visit Information Visit Information Visit Type Treatment Note Visit Start Time 11:17 Visit Stop Time 11:54 Total Visit Minutes 34 Visit Number 21 Evaluation Information Evaluation Date 02/05/22 PT-OP-B Current Condition Start: 10/23/21 08:57 Freq: Status: Active Protocol: Document 10/23/21 09:50 SAK (Rec: 10/23/21 11:09 SAK [id number]) Current Condition History of Current Condition Onset Date 10/13/21 Current Complaints right knee pain and gait dysfunction History of Current Condition 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 Referred to PT for rehab s/p right TKA. Has walker, cane, and walking sticks, cane, but comes to PT with no device, limping moderately. Follow- up with PA next week. Minimal exercises since going home. Wearing FÁTIMA hose. has mild dementia so patient does more around the home. Prior to severe pain used to walk 2 miles per day, prior to Covid was member of hiking group. Treatment Goals Patient/Caregiver Goals Be able to walk on all surfaces without pain. Has 14 stairs at home railing on one side. 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 Primary Therapy/Recovery caregiver for with dementia PT-OP-C Subjective Start: 10/23/21 08:57 Freq: Status: Active Protocol: Document 02/05/22 11:19 SAK (Rec: 02/05/22 11:53 SAK [id number]) OP-PT Subjective Patient Comments Patient Comments Stairs are still a killer, otherwise doing pretty well, no pain with ambulation on level surfaces. Stressed about finishing taxes and trip to [place] coming up, going with who has Alzheimers PT-OP-F Manual Assessment Start: 10/23/21 08:57 Freq: Status: Active Protocol: Document 10/23/21 09:50 SAK (Rec: 10/23/21 11:09 [facility] [id number]) Manual Assessments Soft Tissue Assessment Soft Tissue Mobility Assessment extensive brusing right knee and lower leg to ankle. PT-OP-G Mobility & Gait Start: 10/23/21 08:57 Freq: Status: Active Protocol: Document 10/23/21 09:50 SAK (Rec: 10/23/21 11:09 [facility] [id number]) OP Mobility Evaluation Bed Mobility Rolling indep Supine to and from Sit indep Transfers Sit to Stand indep, min use of right LE PT-OP-J Posture/Palpation/Skin Start: 10/23/21 08:57 Freq: Status: Active Protocol: Document 10/23/21 09:50 [facility] (Rec: 10/23/21 11:09 [facility] [id number]) Palpation Assessment Location right knee Palpation Findings Edema,Muscle Guarding, Tenderness Palpation Details mild warmth right knee compared to left PT-OP-K Range of Motion Start: 10/23/21 08:57 Freq: Status: Active Protocol: Document 10/23/21 09:50 [facility] (Rec: 10/23/21 11:09 [facility] [id number]) Knee Goniometric Range of Motion Knee Right Knee ROM WFL No Flexion Active (degrees) 84 Flexion Passive (degrees) 89 Extension Active (degrees) 24 Extension Passive (degrees) 8 Left Knee ROM WFL Yes Flexion Active (degrees) 120 Extension Active (degrees) 0 PT-OP-M Strength Start: 10/23/21 08:57 Freq: Status: Active Protocol: Document 10/23/21 09:50 [facility] (Rec: 10/23/21 11:09 [facility] [id number]) Knee Strength Knee Manual Muscle Testing Right Flexion (S2) 3- Fair- Extension (L3) 3- Fair- Comments no MMT due to surgery 10/13/21 . Less than antigravity evident Left Flexion (S2) 5 Normal Extension (L3) 5 Normal Ankle/Foot Strength Ankle and Foot Manual Muscle Testing kvng Dorsiflexion (L4) 5 Normal Plantarflexion (S1) 5 Normal PT-OP-Q Treatments Start: 10/23/21 08:57 Freq: Status: Active Protocol: Document 02/05/22 11:19 SAK (Rec: 02/05/22 16:45 [facility] [id number]) Therapeutic Exercises Sitting Exercises hamstring curl Resistance L2 TB Reps/Minutes 10x Comments added to HEP Standing Exercises chair squat Equipment Used L2 TB distal thighs, mirror for visual feedback Reps/Minutes 10x2 Comments cues for neutral LE's, manual tibial rotation Manual Therapy Treatment Joint Mobilizations external tibial rotation Comments with squats and step-ups to normalize mechanics with patient reporting decreased pain Taping 1 Comments patient declined, not sure helpful PT-OP-R Modalities Start: 10/23/21 08:57 Freq: Status: Active Protocol: Document 01/08/22 14:33 SAK (Rec: 01/08/22 15:33 [facility] [id number]) Electric Stimulation Electric Stimulation right knee Comments patient refused due to time PT-OP-S Aquatic Treatment Start: 10/23/21 08:57 Freq: Status: Active Protocol: Document 12/24/21 16:53 SAK (Rec: 12/24/21 17:01 [facility] [id number]) Aquatics Treatment Pool Entry/Exit Pool Entry/Exit Method Stairs Assistance Independent Comments unil UE support Water Walking Lunge Walk Water Level Waist Level Walking Equipment large ankle floats Level of Assistance Verbal Cues Comments unil UE support [place] March Water Level Chest Level Walking Equipment large ankle floats Level of Assistance Verbal Cues Comments unil UE support Sideways Water Level Chest Level Walking Equipment large ankle floats Level of Assistance Verbal Cues Comments unil UE support Backwards Water Level Chest Level Walking Equipment large ankle floats Level of Assistance Verbal Cues Comments unil UE support Forwards Water Level Chest Level Walking Equipment large ankle floats Level of Assistance Verbal Cues Comments unil UE support Lower Extremity Exercises step up/down Water Level Chest Level Equipment 3 lg boxes Reps/Duration 7x f/b, side Comments cues for body positioning and complete knee extension Lower Extremity Stretches TFL Details at wall Body Position Standing Water Level Waist Level Reps/Duration 2 x 30 R HS Details back against wall Body Position Standing Water Level Chest Level Equipment large ankle float Reps/Duration 2 x 30 quads, hip flexors Details at wall Body Position Standing Water Level Chest Level Equipment large ankle float Reps/Duration 2 x 30 R [place] Activities [place] Activities Bicycle,Bicycle Backwards, Cross Country,Running,Hip Abduction/Adduction,Sit Kicks Other Activities bicycle without UE's bicycle with UE's at sides underwater holding small barbells Equipment flotation belt Comments medium barbells for backward PT-OP-T Assessment and Plan Start: 10/23/21 08:57 Freq: Status: Active Protocol: Document 02/05/22 11:19 SAK (Rec: 02/05/22 16:45 [facility] [id number]) Physical Therapy Assessment Goals Three Impairment Lower extremity functional score 25% Short Term Goal (STG) Improve LEFS to at least 50% as measure of improved knee function 12/22/21: goal met STG Duration goal met Detention Goal (LTG) Improve LEFS to at least 75% as measure of improved right knee function 12/30/21: goal progress at 57% 02/05/22: goal progress at 63% LTG Duration 03/25/22 Two Impairment antalgic gait, step-to on stairs Short Term Goal (STG) Patient able to ambulate without limp on level surfaces with least restrictive device and ascend and descend stairs safely 12/22/21: goal met STG Duration goal met Detention Goal (LTG) Patient will be able to ambulate without limp without assistive device for at least short distance community ambulation and be able to ambulate on stairs with alternating pattern without difficulty 12/30/21: no difficulty with ambulation on level surfaces or when ascending stairs, but pain with descending stairs persists, possibly due to excess lateral glide of patella 02/05/22: pain appears due to continued habit of poor alignment of knee with step- ups, squats, stepping down. Decreased with cues as well as manual tibial ER LTG Duration 03/25/22 One Impairment R knee ROM restrictions 24-84 actively, lacking antigravity knee strength Short Term Goal (STG) Patient to be independent with HEP to address ROM and strength limitations 12/22/21: goal met STG Duration goal met Detention Goal (LTG) Patient to demonstrate right knee ROM 0-120 and right knee strength of at least 4/5 12/30/21: AROM 5-120 02/05/22: AROM 5-124, PROM 0- 125 LTG Duration 03/25/22 Assessment Summary Assessment Patient high stress level has complicated her recovery recently with decreased focus on exercise and alignment of knee with weight-bearing especially squats and ascending and descending stairs. . Patient needed cues for alignment and muscle activation sequencing; stressed benefit of use of mirror for visual feedback due to patient habitual knee adduction with closed chain flexion and ext. Pain improved with manual tibial rotation with closed chain extension. Physical Therapy Plan Frequency and Duration Frequency of Treatment follow up 1 visit Plan of Care Start Date 02/05/22 Plan of Care End Date 03/25/22 Therapeutic Interventions Therapeutic Interventions Manual Therapy,Patient/ Caregiver Education,Self-Care/ Home Management,Therapeutic Activities,Therapeutic Exercises Next Visit Focus/Plan Next Note Type Treatment Note Next Visit Plan Evaluate patient status after no PT approx 1 month, trip to [place], determine need for any further PT, especially manual treatment to facilitate normal knee mechanics.
--- NOTE | 2022-02-05 16:45 | PT.OPPOC ---
Physical, Occupational & Speech Therapy At [facility] Current Diagnoses Unilateral primary osteoarthritis, right knee (02/05/22) Visit Care Team Role Provider Type Maryse Ulloa MD Family Provider Physician Primary Care Provider Specialty: Internal Medicine Address: [address] [place] [address], [id number] Email: [email or web address] Ria Jeronimo PA-C Attending Provider Non-Staff Referring Provider Specialty: General Surgery Address: [address] [place] [address], [address] Email: Plan Of Care PT-OP-T Assessment and Plan Start: 10/23/21 08:57 Freq: Status: Active Protocol: Document 02/05/22 11:19 SAK (Rec: 02/05/22 16:45 SAK [id number]) Physical Therapy Assessment Goals Three Impairment Lower extremity functional score 25% Short Term Goal (STG) Improve LEFS to at least 50% as measure of improved knee function 12/22/21: goal met STG Duration goal met Fci Goal (LTG) Improve LEFS to at least 75% as measure of improved right knee function 12/30/21: goal progress at 57% 02/05/22: goal progress at 63% LTG Duration 03/25/22 Two Impairment antalgic gait, step-to on stairs Short Term Goal (STG) Patient able to ambulate without limp on level surfaces with least restrictive device and ascend and descend stairs safely 12/22/21: goal met STG Duration goal met Time Clock Mechanic Goal (LTG) Patient will be able to ambulate without limp without assistive device for at least short distance community ambulation and be able to ambulate on stairs with alternating pattern without difficulty 12/30/21: no difficulty with ambulation on level surfaces or when ascending stairs, but pain with descending stairs persists, possibly due to excess lateral glide of patella 02/05/22: pain appears due to continued habit of poor alignment of knee with step- ups, squats, stepping down. Decreased with cues as well as manual tibial ER LTG Duration 03/25/22 One Impairment R knee ROM restrictions 24-84 actively, lacking antigravity knee strength Short Term Goal (STG) Patient to be independent with HEP to address ROM and strength limitations 12/22/21: goal met STG Duration goal met Time Clock Mechanic Goal (LTG) Patient to demonstrate right knee ROM 0-120 and right knee strength of at least 4/5 12/30/21: AROM 5-120 02/05/22: AROM 5-124, PROM 0- 125 LTG Duration 03/25/22 Assessment Summary Assessment Patient high stress level has complicated her recovery recently with decreased focus on exercise and alignment of knee with weight-bearing especially squats and ascending and descending stairs. . Patient needed cues for alignment and muscle activation sequencing; stressed benefit of use of mirror for visual feedback due to patient habitual knee adduction with closed chain flexion and ext. Pain improved with manual tibial rotation with closed chain extension. Physical Therapy Plan Frequency and Duration Frequency of Treatment follow up 1 visit Plan of Care Start Date 02/05/22 Plan of Care End Date 03/25/22 Therapeutic Interventions Therapeutic Interventions Manual Therapy,Patient/ Caregiver Education,Self-Care/ Home Management,Therapeutic Activities,Therapeutic Exercises Next Visit Focus/Plan Next Note Type Treatment Note Next Visit Plan Evaluate patient status after no PT approx 1 month, trip to [place], determine need for any further PT, especially manual treatment to facilitate normal knee mechanics. Plan of Care Dates Plan of Care Start Date 02/05/22 Plan of Care End Date 03/25/22 Electronically Signed by: Aziza Santiago, PT 02/05/22 [id number] Please Sign and Return: I have reviewed this Plan of Care and certify that the skilled therapy services above are required to meet the patient?s needs. Physician Signature Date Printed Name and Credentials Clinical Instructor Signature Printed Name and Credentials
--- NOTE | 2022-09-23 09:39 | PT.OPDS ---
Current Diagnoses Unilateral primary osteoarthritis, right knee (02/05/22) Visit Care Team Role Provider Type Maryse Ulloa MD Family Provider Physician Primary Care Provider Specialty: Internal Medicine Address: [address] [place] [address], [address] Email: [email or web address] Ria Jeronimo PA-C Attending Provider Non-Staff Referring Provider Specialty: General Surgery Address: [address] [place] [address], [address] Email: Visit Number Visit Number 21 Discharge Summary PT-OP-B Current Condition Start: 10/23/21 08:57 Freq: Status: Active Protocol: Document 10/23/21 09:50 SAK (Rec: 10/23/21 11:09 SAK [id number]) Current Condition History of Current Condition Onset Date 10/13/21 Current Complaints right knee pain and gait dysfunction History of Current Condition 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 Referred to PT for rehab s/p right TKA. Has walker, cane, and walking sticks, cane, but comes to PT with no device, limping moderately. Follow- up with PA next week. Minimal exercises since going home. Wearing FÁTIMA hose. has mild dementia so patient does more around the home. Prior to severe pain used to walk 2 miles per day, prior to Covid was member of hiking group. Treatment Goals Patient/Caregiver Goals Be able to walk on all surfaces without pain. Has 14 stairs at home railing on one side. 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 Primary Therapy/Recovery caregiver for with dementia PT-OP-C Subjective Start: 10/23/21 08:57 Freq: Status: Active Protocol: Document 02/05/22 11:19 SAK (Rec: 02/05/22 11:53 [facility] [id number]) OP-PT Subjective Patient Comments Patient Comments Stairs are still a killer, otherwise doing pretty well, no pain with ambulation on level surfaces. Stressed about finishing taxes and trip to [place] coming up, going with who has Alzheimers PT-OP-F Manual Assessment Start: 10/23/21 08:57 Freq: Status: Active Protocol: Document 10/23/21 09:50 [facility] (Rec: 10/23/21 11:09 [facility] [id number]) Manual Assessments Soft Tissue Assessment Soft Tissue Mobility Assessment extensive brusing right knee and lower leg to ankle. PT-OP-G Mobility & Gait Start: 10/23/21 08:57 Freq: Status: Active Protocol: Document 10/23/21 09:50 [facility] (Rec: 10/23/21 11:09 [facility] [id number]) OP Mobility Evaluation Bed Mobility Rolling indep Supine to and from Sit indep Transfers Sit to Stand indep, min use of right LE PT-OP-J Posture/Palpation/Skin Start: 10/23/21 08:57 Freq: Status: Active Protocol: Document 10/23/21 09:50 [facility] (Rec: 10/23/21 11:09 [facility] [id number]) Palpation Assessment Location right knee Palpation Findings Edema,Muscle Guarding, Tenderness Palpation Details mild warmth right knee compared to left PT-OP-K Range of Motion Start: 10/23/21 08:57 Freq: Status: Active Protocol: Document 10/23/21 09:50 [facility] (Rec: 10/23/21 11:09 [facility] [id number]) Knee Goniometric Range of Motion Knee Right Knee ROM WFL No Flexion Active (degrees) 84 Flexion Passive (degrees) 89 Extension Active (degrees) 24 Extension Passive (degrees) 8 Left Knee ROM WFL Yes Flexion Active (degrees) 120 Extension Active (degrees) 0 PT-OP-M Strength Start: 10/23/21 08:57 Freq: Status: Active Protocol: Document 10/23/21 09:50 [facility] (Rec: 10/23/21 11:09 [facility] [id number]) Knee Strength Knee Manual Muscle Testing Right Flexion (S2) 3- Fair- Extension (L3) 3- Fair- Comments no MMT due to surgery 10/13/21 . Less than antigravity evident Left Flexion (S2) 5 Normal Extension (L3) 5 Normal Ankle/Foot Strength Ankle and Foot Manual Muscle Testing kvng Dorsiflexion (L4) 5 Normal Plantarflexion (S1) 5 Normal PT-OP-T Assessment and Plan Start: 10/23/21 08:57 Freq: Status: Active Protocol: Document 09/23/22 09:37 [facility] (Rec: 09/23/22 09:38 [facility] [id number]) Physical Therapy Plan Discharge Physical Therapy Discharge Reasons Goals Met
== END 2022-09-24 09:22 | disposition home or self-care (01) ==
LOC: PHYS 11:15
PROVIDERS: Family Provider Internal Medicine; PCP Internal Medicine; Referring Provider Physician Assistant; Visit Provider Physician Assistant
DX: M17.11 Unilateral primary osteoarthritis, right knee (principal)
CPT/HCPCS: 97010; 97014; 97032; 97110; 97112; 97113; 97116; 97140; 97162; 97535; G0283

== ENCOUNTER → 2022-06-05 09:44 | Outpatient (CLI) | payer MEDICARE, OTHER, SELFPAY ==
[2022-06-05 10:33] LABS: COVID19 -Nasal RAPID Negative (Negative)
--- NOTE | 2022-06-05 15:34 | PM.TREADMILL ---
Cardiac Stress Test Report Referral & Results Date Patient Seen: 06/05/22 Time Patient Seen: 15:34 Requesting provider: Maryse Ulloa Indication: Chest pain Rest ECG: sinus rhythm Procedure Note: Standard Bi protocol, 9:04 minutes, 9.1 METS Excellent exercise capacity, ELEAZAR -80% Normal hemodynamic response to exercise No chest pain or anginal symptoms No significant ST changes at peak exercise Rare couplet Impression: Normal exercise stress test Nuclear images pending Please note: Actual ECG tracings can be found in the PACS system.
--- NOTE | 2022-06-05 18:06 | DI.NM.S_ITS ---
DATE OF SERVICE: 06/05/2022 PROCEDURE PERFORMED: Exercise treadmill stress and rest myocardial perfusion imaging with gating to assess ejection fraction and regional wall motion. ORDERING PROVIDER: Dr. Maryse Ulloa. INDICATIONS: The patient is a 76-year-old female with atypical chest discomfort. EXERCISE TREADMILL TESTING: The patient was able to exercise for 9 minutes, 4 seconds on a standard Bi protocol, suggesting exceptional exercise capacity with an ELEAZAR of -80%. She had a normal heart rate and blood pressure response to exercise, achieving a maximum heart rate of 169 BPM (119% of her predicted maximum). She had no chest discomfort or other anginal symptoms. Her resting ECG appears normal and there are no significant ST-segment shifts with exercise. She had rare PVCs, rarely in couplets, but no other complex ventricular ectopy. At 5 minutes, 45 seconds of exercise at a heart rate of 136 BPM, 25.0millicuries of technetium-99m Myoview was injected and she was imaged 10 minutes later using a gated SPECT acquisition protocol. Earlier in the day while at rest, she had been injected with 11.9 millicuries of technetium-99m Myoview and was imaged 20 minutes later, again using a quantitated gated SPECT acquisition protocol. FINDINGS: 1. Raw data: There is fairly good myocardial tracer uptake with very slight breast shadows noted. Lung/heart ratio was normal at 0.17 with a normal TID ratio of 0.93. 2. Quantitated gated SPECT: Post-stress ejection fraction is 85% without any focal wall motion abnormality. Resting ejection fraction is 81% with a normal resting end- diastolic volume of 84 mL. 3. Myocardial perfusion imaging: Post-stress supine images shows a fairly normal myocardial perfusion pattern without any perfusion defects, supported by normal perfusion imaging in the prone position. The resting images show a similar perfusion pattern without any areas of improvement. IMPRESSION: 1. Normal myocardial perfusion study. 2. No evidence for myocardial ischemia or previous myocardial infarction. 3. Normal left ventricular systolic function without any focal wall motion abnormality. 4. Exceptional exercise capacity without any angina or ECG evidence of ischemia. She had rare isolated PVCs, rarely in couplets. 5. Compared to the previous myocardial perfusion study of 03/14/2009, a very similar perfusion pattern is seen. Her previous ejection fraction was 72% with an end- diastolic volume of 86 mL. Thus, there has been no significant change since her previous exam. Sherri Munguia - Hafsa/mahogany doc#: [id number]/job#: [id number] dd: 06/05/2022 16:42:00 dt: 06/05/2022 17:51:00 DICTATING MD/COPIES TO: Kadeem Salazar MD COPIES MNE: TAYLER;
== END ==
PROVIDERS: PCP Internal Medicine; Referring Provider Internal Medicine; Visit Provider Internal Medicine
DX: R07.89 Other chest pain (principal); I10 Essential (primary) hypertension; E78.5 Hyperlipidemia, unspecified; Z20.822 Contact with and (suspected) exposure to COVID-19
CPT/HCPCS: 78452; 87635; 93017; A9502

== ENCOUNTER → 2022-12-18 14:11 | Outpatient (CLI) | payer MEDICARE, OTHER, SELFPAY ==
--- NOTE | 2022-12-18 | DI.MG.S_ITS ---
BILATERAL DIGITAL SCREENING MAMMOGRAM 3D/2D WITH CAD: 12/18/2022 CLINICAL: Routine screening. Family history of breast cancer. Comparison is made to exams dated: 12/03/2021 mammogram, 11/14/2020 mammogram, 10/05/2018 mammogram, and 08/04/2017 mammogram - [facility]. There are scattered areas of fibroglandular density in both breasts (category b / 25%-50% glandular tissue). Current study was also evaluated with a Computer Aided Detection (CAD) system. No significant masses, calcifications, or other findings are seen in either breast. There has been no significant interval change. IMPRESSION: NEGATIVE There is no mammographic evidence of malignancy. A 1 year screening mammogram is recommended. Based on the Tyrer Cuzick model (a risk assessment model) the patient's lifetime risk is 2.4% and her 10 year risk is 0.0%. According to the ACR, ACS, and NCCN guidelines, an annual breast MRI exam along with mammogram is recommended if the patient's lifetime risk is 20% or greater. This exam was interpreted at Station ID: [id number]. NOTE: For mammograms, a report in lay terms will be sent to the patient. Approximately 15% of breast malignancies will not be visualized mammographically. In the management of a palpable breast mass, a negative mammogram must not discourage biopsy of a clinically suspicious lesion. Electronically Signed By: Mickey long/rosalia:12/18/2022 17:09:16 letter sent: Normal Exam ACR BI-RADS Category 1: Negative [id number]
== END ==
PROVIDERS: PCP Internal Medicine; Referring Provider Internal Medicine; Visit Provider Internal Medicine
DX: Z12.31 Encounter for screening mammogram for malignant neoplasm of breast (principal); Z80.3 Family history of malignant neoplasm of breast
CPT/HCPCS: 77063; 77067

== ENCOUNTER → 2023-02-18 18:16 | Outpatient (CLI) | payer MEDICARE, OTHER, SELFPAY ==
[2023-02-18 18:59] LABS: Influenza A - CEPHEID Flu A NEGATIVE (NEGATIVE); Influenza B - CEPHEID Flu B NEGATIVE (NEGATIVE); Respiratory Syncytial Virus Negative (Negative)
[2023-02-18 19:13] LABS: COVID-19 CEPHEID 4-PLEX PCR POSITIVE (Negative)
== END ==
PROVIDERS: PCP Internal Medicine; Visit Provider Student in an Organized Health Care Education/Training Program
DX: R52 Pain, unspecified (principal)
CPT/HCPCS: 0241U

== ENCOUNTER → 2023-03-23 10:52 | Outpatient (CLI) | payer MEDICARE, OTHER, SELFPAY ==
[2023-03-23 13:49] LABS: BUN Creatinine Ratio 22.4 (6-22); Blood Urea Nitrogen 11 mg/dL (7-17); Calcium 9.2 mg/dL (8.4-10.2); Carbon Dioxide 26 mmol/L (22-32); Chloride 100 mmol/L (98-107); Estimated Glomerular Filt Rate > 60 mL/min (>60); Glucose 83 mg/dL (80-110); HEMOLYSIS < 15 (0-50); Potassium 4.6 mmol/L (3.4-5.1); Sodium 133 mmol/L (137-145)
== END ==
PROVIDERS: PCP Internal Medicine; Referring Provider Urology; Visit Provider Urology
DX: R31.21 Asymptomatic microscopic hematuria (principal); Z87.891 Personal history of nicotine dependence
CPT/HCPCS: 36415; 80048

== ENCOUNTER → 2023-03-24 11:43 | Outpatient (CLI) | payer MEDICARE, OTHER, SELFPAY ==
--- NOTE | 2023-03-24 11:45 | DI.CT.S_ITS ---
PROCEDURE: CT ABDOMEN PELVIS WO/W CON INDICATIONS: Asymptomatic microscopic hematuria and history use TECHNIQUE: Optional 5 mm thick noncontrast images acquired from the diaphragm to the symphysis pubis. After the administration of intravenous contrast, 5 mm thick images acquired from the diaphragm to the symphysis pubis after a 10-minute delay. 2 mm thick coronal and sagittal reformats were then performed of the kidneys and ureters. For radiation dose reduction, the following was used: automated exposure control, adjustment of mA and/or kV according to patient size. COMPARISON: Lumbar x-ray 07/18/2020. FINDINGS: Image quality: Excellent. Lung bases: Lung bases are clear. Heart size is normal. Urinary system: Both kidneys are normal in size, without hydronephrosis or nephrolithiasis on pre-contrast images. No perinephric fat stranding. There is normal bilateral renal enhancement. Renal calyces appear normal in morphology when filled with contrast. Opacified portions of both ureters demonstrate normal caliber. Bladder wall thickness is normal. No calcified bladder stones. There is mild asymmetric thickening at the right ureterovesicular junction (series 4, image 170). Trabeculated bladder wall. Other solid organs: Liver is normal in size and enhancement. Gallbladder is unremarkable . Biliary system is non dilated. Pancreas enhances normally. Spleen is normal in size and enhancement. No adrenal nodules. Peritoneum and bowel: Bowel loops demonstrate normal wall thickness and caliber. No free fluid or air. Colonic diverticulosis without evidence of diverticulitis. Nodes and vessels: No retroperitoneal or mesenteric adenopathy by size criteria. Aorta and inferior vena cava are normal in size. Abdominal wall: No ventral hernias. Pelvis: No pathologic free pelvic fluid. No inguinal hernias or adenopathy. Bones: No suspicious bony lesions. Moderate compression deformity L2 vertebral body, with 4 millimeter endplate retropulsion. IMPRESSION: Asymmetric right UVJ thickening, without hydronephrosis. Consider direct visualization to exclude mass. Trabeculated bladder wall, commonly caused by chronic outlet obstruction. Underlying mass difficult to exclude. Moderate compression deformity L2 vertebral body, with 4 millimeter endplate retropulsion. Dictated by: Martinez Handy M.D. on 03/24/2023 at 13:04 Approved by: Martinez Handy M.D. on 03/24/2023 at 13:13
== END ==
PROVIDERS: PCP Internal Medicine; Referring Provider Urology; Visit Provider Urology
DX: R31.21 Asymptomatic microscopic hematuria (principal); Z87.891 Personal history of nicotine dependence
CPT/HCPCS: 74178; Q9967

== ENCOUNTER → 2023-06-07 09:59 | Outpatient (CLI) | payer MEDICARE, OTHER, SELFPAY ==
--- NOTE | 2023-06-07 10:00 | DI.CT.S_ITS ---
PROCEDURE: CT ABDOMEN PELVIS WO CON INDICATIONS: Follow-up abnormal right UPJ thickening TECHNIQUE: Noncontrast 5 mm thick sections acquired from the diaphragms to the symphysis. 5 mm coronal and sagittal reformats were then performed. For radiation dose reduction, the following was used: automated exposure control, adjustment of mA and/or kV according to patient size. COMPARISON: CT abdomen pelvis 03/24/2023. FINDINGS: Image quality: Excellent. ABDOMEN: Lung bases: Lung bases are clear. Heart size is normal. Solid organs: Liver is normal in size. Gallbladder unremarkable. Pancreas is normal in contours. Spleen is normal in size. No adrenal nodules. Kidneys are normal in size, without hydronephrosis or nephrolithiasis. Peritoneum and bowel: Unenhanced bowel loops demonstrate normal wall thickness and caliber. No free fluid or air. Colonic diverticulosis without evidence of diverticulitis. Nodes and vessels: No retroperitoneal or mesenteric adenopathy by size criteria. Aorta and inferior vena cava are normal in caliber. Miscellaneous: No ventral hernias. PELVIS: Genitourinary: Bladder is incompletely distended, limiting evaluation. Bladder wall thickness is normal. The right ureter vesicular junction appears asymmetric to the left on this noncontrast study. Miscellaneous: No inguinal hernias or adenopathy. Bones: Redemonstration of L2 compression deformity, unchanged from prior. IMPRESSION: Previously seen asymmetric right UVJ thickening is seen on current exam, however lack of contrast urographic phase limits evaluation. If there is continued clinical concern recommend direct visualization to exclude mass. L2 compression deformity, unchanged from prior. Approved by: Cherry Simpson M.D. on 06/07/2023 at 15:10
== END ==
PROVIDERS: PCP Internal Medicine; Referring Provider Urology; Visit Provider Urology
DX: R93.429 Abnormal radiologic findings on diagnostic imaging of unspecified kidney (principal); R31.21 Asymptomatic microscopic hematuria; M43.9 Deforming dorsopathy, unspecified
CPT/HCPCS: 74176

== ENCOUNTER 2023-07-05 06:35 | Day surgery (SDC) | payer MEDICARE, OTHER, SELFPAY ==
[2023-06-29 12:08] VITALS: BMI 26.5
--- NOTE | 2023-07-05 | DI.RAD.S_ITS ---
PROCEDURE: XR ABDOMEN 1V INDICATIONS: Low resolution intraoperative fluoroscopic spot films were obtained TECHNIQUE: 12 intra-operative images acquired by the Urology service. COMPARISON: None. FINDINGS: Spot films show right-sided retrograde urogram in progress. No stent placement. IMPRESSION: Fluoroscopic guidance Approved by: Gregorio Singh M.D. on 07/05/2023 at 15:43
[2023-07-05 07:09] VITALS: BP 148/78; PULSE 97; RESP 16; TEMP 36.7; O2SAT 96; BMI 26.5
[2023-07-05] MEDS: LACTATED RINGERS 1,000 ML 21 ML IV (07:20)
--- NOTE | 2023-07-05 07:35 | PM.PREOP ---
Pre-operative Note COVID-19 COVID-19 status: Not tested Criteria for continued procedure: Non-surgical alternatives not available or appropriate per current SOC Interval Note History & Physical reviewed/Exam performed by Physician: Yes Changes to H&P: No
[2023-07-05] MEDS: CEFAZOLIN 2 GM/100 ML PREMIX 100 ML IV (08:00)
--- NOTE | 2023-07-05 08:04 | SUR.OPER ---
Lithotomy on padded OR bed, head on pillow, arms secured on padded arm boards at <90 degrees abduction. Legs secured in padded yellow fins stirrups.
[2023-07-05] MEDS: IOPAMIDOL 30 ML VIAL INTRAURETH (08:07)
[2023-07-05 08:22] VITALS: BP 121/67; PULSE 75; RESP 11; TEMP 36.1; O2SAT 94
[2023-07-05 08:27] VITALS: BP 121/66; PULSE 72; RESP 13; O2SAT 95
--- NOTE | 2023-07-05 08:27 | PM.OP.1 ---
Procedure & Clinicians Procedure: Cystoscopy and right retrograde pyelogram Same procedure as scheduled: Yes Indications: This 77-year-old female presented with complaints of hematuria and was found to have what appeared to be thickening at the right UPJ. Patient has IV iodinated contrast allergy and therefore comes for cystoscopy and retrograde pyelogram to further define the anatomy in this area. Surgeon: Moises Hurd Click Yes if Unassisted: Yes Anesthesia Type: General Operative Notes Findings: At cystoscopy: There is evidence of atrophic vaginitis, introital narrowing, urethral meatus is normal urethra is normal along its length there is some bladder floor descensus. The ureteral orifices were in orthotopic position with clear efflux. The mucosa of the bladder was normal there were no other abnormalities within the bladder. It retrograde pyelogram the ureter was normal along its length with a smooth outlined. No filling defects or irregularities were noted no defects or abnormalities were noted at the UPJ or within the collecting system so in a word a normal retrograde pyelogram with quick an efficient drainage and no blockage. Closure Type: not applicable Specimen(s): none sent Prosthetic devices, grafts, tissues, transplants, or devices: None Blood products transfused: none Procedure in detail: Procedure in detail: After informed consent was obtained, the patient was identified brought the operating room where she was placed in the supine position on the table. Anesthesia was induced and maintained. Showing an adequate level of anesthesia patient was transitioned to the lithotomy position where she was prepped, draped, prepared for Transurethral procedure. After prepping draping showing an adequate level of anesthesia and time-out 22 Lithuanian cystoscope was passed through the urethra and into the bladder. Cystoscopy is performed visualizing the entire bladder. Cone-tip catheter was then impacted in the right ureteral orifice and dilute contrast was then instilled into the collecting system and serial images taken via the fluoroscope. Extract Puller images were then collected via the fluoroscope. This was done from the bladder to the intrarenal collecting system. Was then observed for drainage it drained quite well dermatology sales representative images were once again collected. With this information in hand the bladder was drained the scope was removed and the patient was awakened having tolerated the procedure well patient to be transferred to the postanesthesia care unit for recovery and from there to be discharged to home patient will then follow-up my office there were no complications. Complications: none Post-operative Condition: stable Disposition: PACU Plan for aftercare: Patient to be discharged to home.
[2023-07-05 08:32] VITALS: BP 118/65; PULSE 71; RESP 10; O2SAT 96
[2023-07-05 08:37] VITALS: BP 114/65; PULSE 67; RESP 20; TEMP 36.1; O2SAT 94
[2023-07-05 08:45] VITALS: BP 141/71; PULSE 62; RESP 16; TEMP 36.1; O2SAT 98
== END 2023-07-05 09:01 | disposition home or self-care (01) ==
PROVIDERS: PCP Internal Medicine; Referring Provider Urology; Visit Provider Urology
PROC: (CPT 52351; principal; 2023-07-05 07:45)
DX: R31.21 Asymptomatic microscopic hematuria (principal); R93.429 Abnormal radiologic findings on diagnostic imaging of unspecified kidney; Z87.891 Personal history of nicotine dependence
CPT/HCPCS: 52351; 74018; 76000; J0690; J1100; J2405; J2704; J3010; Q9967

== ENCOUNTER → 2023-12-31 15:29 | Outpatient (CLI) | payer MEDICARE, OTHER, SELFPAY ==
--- NOTE | 2023-12-31 | DI.MG.S_ITS ---
BILATERAL DIGITAL SCREENING MAMMOGRAM 3D/2D WITH CAD: 12/31/2023 CLINICAL: Routine screening. Family history of breast cancer. Comparison is made to exams dated: 12/18/2022 mammogram, 12/03/2021 mammogram, and 11/14/2020 mammogram - [facility]. There are scattered areas of fibroglandular density in both breasts (category b / 25%-50% glandular tissue). Current study was also evaluated with a Computer Aided Detection (CAD) system. No significant masses, calcifications, or other findings are seen in either breast. There has been no significant interval change. IMPRESSION: NEGATIVE There is no mammographic evidence of malignancy. A 1 year screening mammogram is recommended. Based on the Tyrer Cuzick model (a risk assessment model) the patient's lifetime risk is 2.0% and her 10 year risk is 0.0%. According to the ACR, ACS, and NCCN guidelines, an annual breast MRI exam along with mammogram is recommended if the patient's lifetime risk is 20% or greater. This exam was interpreted at Station ID: [id number]. NOTE: For mammograms, a report in lay terms will be sent to the patient. Approximately 15% of breast malignancies will not be visualized mammographically. In the management of a palpable breast mass, a negative mammogram must not discourage biopsy of a clinically suspicious lesion. Electronically Signed By: Cherry Simpson M.D., PH.D thelma/rosalia:12/31/2023 22:51:50 letter sent: Normal Exam ACR BI-RADS Category 1: Negative [id number]
== END ==
LOC: MAMMO 15:30
PROVIDERS: PCP Internal Medicine; Referring Provider Internal Medicine; Visit Provider Internal Medicine
DX: Z12.31 Encounter for screening mammogram for malignant neoplasm of breast (principal); Z80.3 Family history of malignant neoplasm of breast; R92.323 Mammographic fibroglandular density, bilateral breasts
CPT/HCPCS: 77063; 77067

== ENCOUNTER → 2024-06-16 10:58 | Outpatient (CLI) | payer MEDICARE, OTHER, SELFPAY ==
--- NOTE | 2024-06-16 11:00 | DI.RAD.S_ITS ---
PROCEDURE: XR DEXA AXIAL SKELETON INDICATIONS: POSTMENOPAUSAL STATUS COMPARISON: [facility], CR, XR DEXA AXIAL SKELETON, 12/12/2018, 13:25. FINDINGS: Lumbar Spine: Bone mineral density 1.172 g/cm2, T score 0.8, compared to -0.1. Left Hip: Bone mineral density 0.780 g/cm2, T score -1.3, unchanged.. Left Femoral Neck: Bone mineral density 0.672 g/cm2, T score -1.6, compared to -1.3. Right Hip: Bone mineral density 0.764 g/cm2, T score -1.5, compared to -1.0. Right Femoral Neck: Bone mineral density 0.685 g/cm2, T score -1.5, compared to -1.0. Fracture Risk Calculation (when applicable): 10-year fracture risk of a major osteoporotic fracture 31% and of a hip fracture 17%, compared to 17.7% and 8.4% respectively. (T score greater or equal to -1.0 to: NORMAL) (T score from -1.1 to -2.4: OSTEOPENIA) (T score less than or equal to -2.5: OSTEOPOROSIS) IMPRESSION: Rfck-np-[id number] osteopenia most prominent in the left femoral neck overall demonstrating mild interval decreased bone mineral density. Follow-up guidelines as follows: Osteoporosis: Consider a repeat DEXA and Vertebral Fracture Assessment (VFA) exam in 2 years or sooner if medically necessary, to reassess this patient's status. Osteopenia: Consider a repeat DEXA in 2-3 years to reassess this patient's status, or if there is a new clinical indication. Normal: Consider a repeat DEXA in 5 years or sooner, or if there is a new clinical indication. All treatment decisions require clinical judgment and consideration of individual patient factors, including patient preferences, comorbidities, previous drug use, risk factors not captured in the FRAX model (e.g., frailty, falls, vitamin D deficiency, increased bone turnover, interval significant decline in bone density ) and possible under- or over-estimation of fracture risk by FRAX. In addition, the NOF Guide recommends that FDA-approved medical therapies be considered in postmenopausal women and men age >= 50 years with a: * Hip or vertebral (clinical or morphometric) fracture * T-score of <=-2.5 at the spine or hip * Ten-year fracture probability by FRAX of >= 3% for hip fracture or >=20% for major osteoporotic fracture. People with diagnosed cases of osteoporosis or at high risk for fracture should have regular bone mineral density tests. For patients eligible for Medicare, routine testing is allowed once every 2 years. The testing frequency can be increased to one year for patients who have rapidly progressing disease, those who are receiving or discontinuing medical therapy to restore bone mass, or have additional risk factors. Dictated by: No Felder M.D. on 06/16/2024 at 21:40 Approved by: No Felder M.D. on 06/16/2024 at 21:43
== END ==
PROVIDERS: PCP Internal Medicine; Referring Provider Internal Medicine; Visit Provider Internal Medicine
DX: M85.852 Other specified disorders of bone density and structure, left thigh (principal); Z78.0 Asymptomatic menopausal state
CPT/HCPCS: 77080

== ENCOUNTER → 2025-01-25 12:39 | Outpatient (CLI) | payer MEDICARE, OTHER, SELFPAY ==
--- NOTE | 2025-01-25 12:45 | DI.MG.S_ITS ---
MM screening mammo BI: 01/25/2025. BI-RADS: 1 CLINICAL: 79-year old female for bilateral screening mammogram. Tyrer-Cuzick lifetime risk of 1.1%. No personal or first-degree family history of breast cancer. Current reported family history of breast cancer: maternal aunt. PRIOR EXAMS 12/31/2023, 12/18/2022, 12/03/2021, 11/14/2020, 10/05/2018, 08/04/2017, 04/01/2016, 03/27/2015. MAMMOGRAPHY TECHNIQUE: 2D and 3D (tomosynthesis) digital mammographic views obtained, with additional images as needed for full coverage. Current study was also evaluated with a Computer Aided Detection (CAD) system. DENSITY B. There are scattered areas of fibroglandular density. MAMMOGRAPHY FINDINGS Bilateral: No suspicious mass, asymmetry, microcalcification, or other abnormality seen. No significant change from comparison. IMPRESSION: * No evidence of malignancy. RECOMMENDATIONS Bilateral * Annual screening mammography. OVERALL ASSESSMENT CATEGORY BI-RADS-1: Negative. The [employer] recommends annual screening mammography beginning at age 40 for women with average risk of breast cancer. ELECTRONICALLY SIGNED: Lyric Escamilla M.D. on 01/25/2025 at 03:33:47 PM PT Interpreting Station ID: [id number]
[2025-01-25 16:22] LABS: Alanine Aminotransferase 53 IU/L (<35); Albumin 4.5 g/dL (3.5-5.0); Alkaline Phosphatase 79 U/L (38-126); Aspartate Aminotransferase 57 IU/L (14-36); BUN Creatinine Ratio 21.5 (6-22); Bilirubin Total 0.6 mg/dL (0.2-1.3); Blood Urea Nitrogen 14 mg/dL (7-17); Calcium 10.1 mg/dL (8.4-10.2); Carbon Dioxide 25 mmol/L (22-32); Chloride 99 mmol/L (98-107); Cholesterol 199 mg/dL (140-199); Estimated Glomerular Filt Rate > 60 mL/min (>60); Globulin 2.3 g/dL (1.7-4.1); Glucose 98 mg/dL (80-110); HEMOLYSIS < 15 (0-50); Sodium 131 mmol/L (137-145); Total Protein 6.8 g/dL (6.3-8.2); Triglycerides 40 mg/dL (35-150)
[2025-01-25 16:35] LABS: HDL Cholesterol 136 mg/dL (40-60); LDL Cholesterol Calculated 55 mg/dL (<100); Potassium 5.5 mmol/L (3.4-5.1)
[2025-01-25 16:38] LABS: Free T4, Direct Thyroxine 0.97 ng/dL (0.78-2.19)
== END ==
PROVIDERS: PCP Internal Medicine; Referring Provider Internal Medicine; Visit Provider Internal Medicine
DX: Z12.31 Encounter for screening mammogram for malignant neoplasm of breast (principal); Z80.3 Family history of malignant neoplasm of breast; E66.3 Overweight; I10 Essential (primary) hypertension; E78.5 Hyperlipidemia, unspecified
CPT/HCPCS: 36415; 77063; 77067; 80053; 80061; 84439

== ENCOUNTER → 2025-03-15 12:57 | Outpatient (CLI) | payer MEDICARE, OTHER, SELFPAY ==
--- NOTE | 2025-03-15 12:59 | DI.RAD.S_ITS ---
PROCEDURE: XR FOREARM LT 2V INDICATIONS: L hand wrist forearm pain swell fall TECHNIQUE: 2 views of the forearm were acquired. COMPARISON: None. FINDINGS: Bones: No proximal forearm fractures or dislocations. No suspicious bony lesions. Soft tissues: No suspicious soft tissue calcifications or masses. IMPRESSION: No proximal forearm fractures. Dictated by: Martinez Handy M.D. on 03/15/2025 at 13:45 Approved by: Martinez Handy M.D. on 03/15/2025 at 13:46
--- NOTE | 2025-03-15 12:59 | DI.RAD.S_ITS ---
PROCEDURE: XR HAND LT MIN 3V INDICATIONS: L hand wrist forearm pain swell fall TECHNIQUE: 3 views of the hand(s) acquired. COMPARISON: None. FINDINGS: Bones: No fractures or dislocations. Carpal bones are normally aligned. No suspicious bony lesions. Interphalangeal joint space narrowing with osteophytosis. 1st CMC joint space narrowing with associated osteophytosis and sclerosis. Soft tissues: No suspicious soft tissue calcifications. IMPRESSION: No acute bony abnormality. Dictated by: Martinez Handy M.D. on 03/15/2025 at 13:46 Approved by: Martinez Handy M.D. on 03/15/2025 at 13:46
--- NOTE | 2025-03-15 12:59 | DI.RAD.S_ITS ---
PROCEDURE: XR WRIST LT MIN 3V INDICATIONS: L hand wrist forearm pain swell fall TECHNIQUE: 4 views of the wrist were acquired. COMPARISON: None. FINDINGS: Bones: No fractures or dislocations. No suspicious bony lesions. 1st CMC joint space narrowing with associated osteophytosis and sclerosis. Soft tissues: No suspicious soft tissue calcifications. IMPRESSION: No acute bony abnormality. Dictated by: Martinez Handy M.D. on 03/15/2025 at 13:52 Approved by: Martinez Handy M.D. on 03/15/2025 at 13:54
== END ==
PROVIDERS: PCP Internal Medicine; Referring Provider Chiropractor; Visit Provider Chiropractor
DX: S60.212A Contusion of left wrist, initial encounter (principal); S60.222A Contusion of left hand, initial encounter; X58.XXXA Exposure to other specified factors, initial encounter
CPT/HCPCS: 73090; 73110; 73130